=== PATIENT | female | born 1975 | race Caucasian/White ===

== ENCOUNTER → 2020-10-16 10:34 | Outpatient (BNVA) | payer OTHER, SELFPAY | PROVIDERS: Visit Provider Orthopaedic Surgery | DX: M75.102 Unspecified rotator cuff tear or rupture of left shoulder, not specified as traumatic (principal) | CPT/HCPCS: 99212 ==

== ENCOUNTER 2020-11-11 09:53 | Day surgery (SDC) | payer OTHER, SELFPAY ==
[2020-11-04 20:18] VITALS: BMI 41.5
--- NOTE | 2020-11-10 10:09 | HO.ANESPROP2 ---
Documented by User: Mee Garrett 11/10/20 10:19 HPI - Anesthesia Eval Consult details Narrative: 44yo F for Shoulder Rotator Cuff Repair,arthroscopy PMFSH Past Medical History Medical History Anxiety Back pain Complete tear of left rotator cuff GERD (gastroesophageal reflux disease) Rotator cuff tear Family History Family History Mother No problems noted. Surgical History Surgical History Hx of cholecystectomy S/P left rotator cuff repair S/P right rotator cuff repair Social History Social History Smoking Status: Current every day smoker Cigarettes Per Day: 3 Smoked in Last 30 Days: Yes Patient Interested in Nicotine Replacement: No Patient Given Instructions on How to Stop Smoking: Yes Date Education Initiated: 11/04/20 Second Hand Smoke Exposure: No Use of substances other than those prescribed or required for medical reasons: No Advance Directives: No Advance Directives Information Provided: No Advance Directives on File: No Recently lost weight without trying: No Current occupational status: unemployed Current occupation: Unemployed - Right Handed Meds Allergies Allergy/AdvReac Type Severity Reaction Status Date / Time Penicillins [PENICILLINS] Allergy Severe Anaphylaxis Verified 11/11/20 10:12 amoxicillin [AMOXICILLIN] Allergy Intermediate HIVES Verified 11/11/20 10:15 ciprofloxacin [From CIPRO] Allergy Unknown HIVES Verified 11/11/20 10:16 citalopram Allergy Unknown sweating, Verified 10/16/20 12:13 panic attack diclofenac [DICLOFENAC] Allergy Unknown HIVES, Verified 11/11/20 10:16 ITCHING, FLUSHED paroxetine [Paxil] Allergy Unknown stomach Verified 10/16/20 12:13 upset penicillin V Allergy Unknown unknown Verified 11/11/20 10:12 Sulfa (Sulfonamide Allergy Unknown HIVES Verified 11/11/20 10:16 Antibiotics) [SULFA(SULFONAMIDE ANTIBIOTICS)] trazodone Allergy Unknown increase Verified 10/16/20 12:13 appetite quetiapine [Seroquel] AdvReac Unknown Increased Verified 10/16/20 12:13 sweating and weight gain Flexeril Allergy Unknown unknown Uncoded 10/16/20 12:13 Home Medications Medication Instructions Recorded Confirmed Type tizanidine 4 mg capsule 4 mg PO Q6-8H PRN 09/18/20 11/04/20 History diazepam 10 mg tablet 10 mg PO BID PRN 10/16/20 11/04/20 History gabapentin 600 mg tablet 600 mg PO TID 10/16/20 11/04/20 History buspirone 1 tab PO BID 11/04/20 11/04/20 History Exam Exam Date and Time: November 10, 2020 1009 Height,Weight and Vital Signs: Height 5 ft 5 in Weight 113.398 kg Assessment and Plan Assessment Anesthesia Assessment: Chart Reviewed Documented by User: Jordon Richards MD 11/11/20 13:03 [facility] Past Medical History Medical History Anxiety Back pain Complete tear of left rotator cuff GERD (gastroesophageal reflux disease) Rotator cuff tear Family History Family History Mother No problems noted. Surgical History Surgical History Hx of cholecystectomy S/P left rotator cuff repair S/P right rotator cuff repair Social History Social History Smoking Status: Current every day smoker Cigarettes Per Day: 3 Smoked in Last 30 Days: Yes Patient Interested in Nicotine Replacement: No Patient Given Instructions on How to Stop Smoking: Yes Date Education Initiated: 11/04/20 Second Hand Smoke Exposure: No Use of substances other than those prescribed or required for medical reasons: No Advance Directives: No Advance Directives Information Provided: No Advance Directives on File: No Recently lost weight without trying: No Current occupational status: unemployed Current occupation: Unemployed - Right Handed Meds Allergies Allergy/AdvReac Type Severity Reaction Status Date / Time Penicillins [PENICILLINS] Allergy Severe Anaphylaxis Verified 11/11/20 10:12 amoxicillin [AMOXICILLIN] Allergy Intermediate HIVES Verified 11/11/20 10:15 ciprofloxacin [From CIPRO] Allergy Unknown HIVES Verified 11/11/20 10:16 citalopram Allergy Unknown sweating, Verified 10/16/20 12:13 panic attack diclofenac [DICLOFENAC] Allergy Unknown HIVES, Verified 11/11/20 10:16 ITCHING, FLUSHED paroxetine [Paxil] Allergy Unknown stomach Verified 10/16/20 12:13 upset penicillin V Allergy Unknown unknown Verified 11/11/20 10:12 Sulfa (Sulfonamide Allergy Unknown HIVES Verified 11/11/20 10:16 Antibiotics) [SULFA(SULFONAMIDE ANTIBIOTICS)] trazodone Allergy Unknown increase Verified 10/16/20 12:13 appetite quetiapine [Seroquel] AdvReac Unknown Increased Verified 10/16/20 12:13 sweating and weight gain Flexeril Allergy Unknown unknown Uncoded 10/16/20 12:13 Home Medications Medication Instructions Recorded Confirmed Type tizanidine 4 mg capsule 4 mg PO Q6-8H PRN 09/18/20 11/04/20 History diazepam 10 mg tablet 10 mg PO BID PRN 10/16/20 11/04/20 History gabapentin 600 mg tablet 600 mg PO TID 10/16/20 11/04/20 History buspirone 1 tab PO BID 11/04/20 11/04/20 History Exam Airway Mallampati Class: II TM Dist: >3cm Neck ROM: Full Loose/Missing/Broken Teeth: No Heart: rrr Lungs: nl Other: ao Assessment and Plan Assessment Anesthesia Assessment: Anesthesia Plan Discussed and Chart Reviewed Final Anesthetic Review NPO: Yes ASA Class: III Final Preanesthetic Review: No Changes in Pt Med Stat, Meds/Allgs Chart Reviewed, Consent Obtained/Reviewed and Anes Risks/Benef Reviewed Patient Risk: Intermediate Procedure Risk: Intermediate Anesthetic Plan Anesthetic Plan: GA and Regional Block Disposition: Standard PACU
[2020-11-11] VITALS (7 sets, daily range): BP systolic 111–139; BP diastolic 59–92; PULSE 84–92; RESP 18; TEMP 36.4–36.6; O2SAT 96–100
[2020-11-11] MEDS: Lactated Ringers 1,000 ML 100 ML IVCONT (10:43)
[2020-11-11 10:45] LABS: UPreg QC Valid YES; Urine Pregnancy NEGATIVE (NEGATIVE)
--- NOTE | 2020-11-11 11:45 | MHC.SHP ---
Pre-Procedural Eval Section A The patient is an INPATIENT: No Changes since office visit: Yes Patient answered all questions; No Cold of Flu in the past 2 weeks, No New Medical Problems and No Changes in Medication The History & Physical has been completed within 30 days and I have reviewed it.: Yes Section B Chief Complaint: rotator cuff tear Allergies: Allergies Allergy/AdvReac Type Severity Reaction Status Date / Time Penicillins [PENICILLINS] Allergy Severe Anaphylaxis Verified 11/11/20 10:12 amoxicillin [AMOXICILLIN] Allergy Intermediate HIVES Verified 11/11/20 10:15 ciprofloxacin [From CIPRO] Allergy Unknown HIVES Verified 11/11/20 10:16 citalopram Allergy Unknown sweating, Verified 10/16/20 12:13 panic attack diclofenac [DICLOFENAC] Allergy Unknown HIVES, Verified 11/11/20 10:16 ITCHING, FLUSHED paroxetine [Paxil] Allergy Unknown stomach Verified 10/16/20 12:13 upset penicillin V Allergy Unknown unknown Verified 11/11/20 10:12 Sulfa (Sulfonamide Allergy Unknown HIVES Verified 11/11/20 10:16 Antibiotics) [SULFA(SULFONAMIDE ANTIBIOTICS)] trazodone Allergy Unknown increase Verified 10/16/20 12:13 appetite quetiapine [Seroquel] AdvReac Unknown Increased Verified 10/16/20 12:13 sweating and weight gain Flexeril Allergy Unknown unknown Uncoded 10/16/20 12:13 Plan Patient has been examined and remains a candidate for the planned procedure
--- NOTE | 2020-11-11 13:34 | PM.OP ---
Brief Operative Note Date of Service: 11/11/20 Pre-op diagnosis: rotator cuff tear Post-op diagnosis: same Procedure: rotator cuff repair Implants: lopez and nephew 5.5 haelicoil lopez and nephew 5.0 helacoil knotless john 3.9 mm [place] Surgeon: Dariel Cain MD Anesthesia: GETA and regional Estimated blood loss (mL): 10 Tourniquet time (min): 0 IV fluids (mL): 800 Urine output (mL): 0 Pathology: none sent Condition: stable Disposition: PACU
[2020-11-11] MEDS: oxyCODONE HCl Immed Release 5 MG TABLET PO (14:14)
[2020-11-11] MEDS: Acetaminophen 325 MG TABLET 650 MG PO (14:16)
--- NOTE | 2020-11-11 16:04 | HO.POSTANES ---
Post Anesthesia Evaluation Post Anesthesia Evaluation Vital Signs: Vital Signs Temp Pulse Resp BP Pulse Ox 11/11/20 14:35 97.6 F 85 18 135/85 97 11/11/20 14:19 84 18 130/85 96 11/11/20 14:05 89 18 120/79 96 11/11/20 14:00 87 18 111/59 L 96 11/11/20 13:55 89 18 139/77 96 11/11/20 13:50 97.6 F 92 18 132/72 100 11/11/20 10:28 98 F 88 18 130/92 H 97 Anesthesia: Nerve Block and General Mental Status: Awake Pain Control: Satisfactory Nausea/Vomiting: None Hydration: Adequate Anesthesia-Related Issues: No Anes. Related Issues
--- NOTE | 2020-11-13 13:50 | OP_ITS ---
SURGEON: Dariel Cain MD INDICATIONS: A 44-year-old woman, who underwent a left rotator cuff repair approximately 2 years ago. She had a fall postoperatively, which may have irritated her shoulder, but she came in about 6 months ago with worsening shoulder pain. She was in excruciating pain and finally did do physical therapy, which was very helpful for her, but continued to have pain. An MRI was obtained, which was difficult to interpret given the prior rotator cuff repair, but she was taken to the operating room to undergo exploration of possible rotator cuff repair. PREOPERATIVE DIAGNOSIS: Left rotator cuff tear. POSTOPERATIVE DIAGNOSIS: Left rotator cuff tear. PROCEDURE PERFORMED: Left shoulder rotator cuff repair. ESTIMATED BLOOD LOSS: 10 mL. COMPLICATIONS: None known. ANESTHESIA: General and regional. ASSISTANTS: None. SPECIMENS: FLUIDS: 800. IMPLANTS: Burnham and Nephew 5.5 Healicoil and Burnham and Nephew 5.0 Knotless Healicoil and Silvana 3.9 mm [place] screw. PROCEDURE IN DETAIL: The patient was brought to the operating room, placed in the beach chair position. All bony prominences were well padded. She was prepped and draped in standard sterile fashion. Time-out was called to identify proper site, proper procedure, proper surgeon. IV antibiotics per weight was administered. I began by making a posterolateral stab incision, and placing my blunt trocar atraumatically into the glenohumeral joint. I then insufflated the joint and established an [id number] portal. She had no glenohumeral arthritis and labrum was intact with the previous biceps tenotomy. Subscap was intact. I could visualize suture and likely undersurface rotator cuff tearing. I then ascended into the subacromial space, where after minimal debridement, I could visualize a full thickness tear. There was no prominent hardware, but the suture was appeared to be pulled out of the tendon. Therefore, I removed the excess suture and then debrided the rotator cuff insertion site down to bleeding bone and then placed 1 Healicoil 5.5 anchor medially and brought the 2 FiberTape strands through the torn supraspinatus. I followed this with 1 additional FiberTape both limbs, which were brought to Healicoil 5.0 Knotless anchor. I then tamped this down far laterally and had good compression of the cuff on the footprint except for 1 small dog-ear. Therefore, I placed a looped suture through this and then brought that down again laterally to a Silvana [place] anchor. This resulted in excellent compression of the cuff over the footprint. I took the shoulder through range of motion and I was happy with the stability of the repair. I examined subacromial space and felt that this was not need a further treatment. All instrumentation was then removed and portals were closed with nylon. The patient was extubated and brought to the recovery room in stable condition. No known complications. MD JEFFERSON Munoz/MERVAT / [id number]
== END 2020-11-11 15:17 | disposition home or self-care (01) ==
PROVIDERS: Nurse Practitioner; PCP Internal Medicine; Visit Provider Orthopaedic Surgery
PROC: (CPT 29827; principal; 2020-11-11 11:00)
DX: M75.122 Complete rotator cuff tear or rupture of left shoulder, not specified as traumatic (principal); Z88.0 Allergy status to penicillin; Z88.1 Allergy status to other antibiotic agents; Z88.2 Allergy status to sulfonamides; Z88.8 Allergy status to other drugs, medicaments and biological substances; F17.210 Nicotine dependence, cigarettes, uncomplicated
CPT/HCPCS: 29827; 81025; C1713; J0171; J1100; J2250; J2370; J2405; J3010; J3370

== ENCOUNTER → 2020-11-24 11:27 | Outpatient (BNVA) | payer OTHER, SELFPAY | PROVIDERS: PCP Internal Medicine; Visit Provider Orthopaedic Surgery | DX: Z47.89 Encounter for other orthopedic aftercare (principal) | CPT/HCPCS: 99212 ==

== ENCOUNTER 2021-01-15 12:00 | Outpatient (RCR) | payer OTHER, SELFPAY ==
--- NOTE | 2020-12-16 11:34 | MHC.PT.EP ---
[facility] [place] Office [place] Office [place] Office [address] Raymundo Saunders [address] [phone] F: [phone] F: [phone] F: [phone] F: [phone] Physical Therapy Plan of Care Date of Evaluation: 12/16/20 Date of Surgery: 11/11/20 Diagnosis: S/P L shoulder rotator cuff repair Assessment: 44 year old female referred for s/p L rotator cuff repair . Pt is 5 weeks post op. This is patients second rotator cuff repair surgery on L side. Examination reveals 4/10 pain at rest and no pain with movement, decreased/ painful shoulder ROM, decreased muscle strength, and altered posture. She lives with her sister and mother. Her sister has been helping her with all IADLS but she is independent with all BADLs (modifies using R UE). She is unemployed but cares for her mother. She is a good candidate for PT based on age, goals, physical impairments and functional limitations. She would benefit from therapy to decrease pain, improve ROM, increase muscle strength, postural correction and functional training. Frequency and Duration: The patient will be seen 2/week for 8 weeks. Short Term Goals: 1. Pt will have 50% decrease in pain in 2 weeks. 2. Pt will be able to move shoulder through all planes of motion without pain in 3 weeks. Card Table Attendant Goals: 1. Pt will be able to perform all BADLs without compensation and pain in 5 weeks. 2. Pt will be independent with all IADLS- cooking, cleaning and grocery without pain in 6 weeks 3. Pt will return to PLOF- caring for her mother in 8 weeks Treatment Plan: Modalities to reduce pain, spasms and effusion. Manual therapy to restore motion and function. Therapeutic exercise to improve strength and flexibility. Neuromuscular re-education for posture and balance. Therapeutic activities to return to functional activities of daily living. Electronically signed by: Rayna Maldonado DPT Please sign and return to therapist. Thank you for your referral.
--- NOTE | 2021-02-11 14:27 | MHC.PT.DC ---
[facility] [place] Office [place] Office [place] Office [address] Raymundo Saunders [address] [phone] F: [phone] F: [phone] F: [phone] F: [phone] Physical Therapy Discharge Report Diagnosis: S/P L shoulder rotator cuff repair Date of Surgery: 11/11/20 Date of Evaluation: 12/16/20 Date of Discharge: 02/11/21 Treatments to Date: 2 Cancellations to Date: 7 No Shows to Date: 0 Discharge Status: Visit Non-compliance Discharge Summary: Pt has attended only one treatment visit over the last 2 months. She has been canceling her appointments due to issues with her mother's health whom she cares for. Pt discharged from therapy for non compliance Electronically signed by: Rayna Maldonado DPT Please sign and return to therapist. Thank you for your referral.
== END 2021-02-11 14:38 | disposition other institution (70) ==
LOC: HO.PT 12:00
PROVIDERS: PCP Internal Medicine; Visit Provider Orthopaedic Surgery
DX: Z98.890 Other specified postprocedural states (principal)
CPT/HCPCS: 97110; 97112; 97161

== ENCOUNTER → 2021-01-15 14:01 | Outpatient (BNVA) | payer OTHER, SELFPAY | PROVIDERS: PCP Internal Medicine; Visit Provider Orthopaedic Surgery | DX: Z13.89 Encounter for screening for other disorder (principal) | CPT/HCPCS: 99212 ==

== ENCOUNTER 2021-03-12 10:10 | Outpatient (REF) | payer OTHER, SELFPAY ==
--- NOTE | ~2021-03-12 | XR_ITS ---
EXAMINATION: XR ANKLE, LEFT CLINICAL INFORMATION: Pain in the ankle COMPARISON: None TECHNIQUE: AP, lateral, and mortise views of the left ankle. FINDINGS: There is no fracture or dislocation. The ankle mortise is congruent. Possible small ankle joint effusion. Circumferential soft tissue swelling. Small plantar heel spur. XR/XR ankle LT min 3V IMPRESSION: No acute osseous abnormality. Soft tissue swelling with small joint effusion.
--- NOTE | ~2021-03-12 | XR_ITS ---
EXAMINATION: XR SHOULDER, LEFT CLINICAL INFORMATION: Pain COMPARISON: 07/10/2020 TECHNIQUE: Three views of the left shoulder. FINDINGS: Radiopaque anchors are seen in the left humeral head. No fracture or dislocation. The glenohumeral joint is well aligned. Tiny marginal osteophyte at the inferior aspect of the humeral head. The joint space is maintained. The acromioclavicular joint is intact. The visualized lung is clear. The visualized ribs are intact. XR/XR shoulder LT min 2V IMPRESSION: No acute abnormality. Additional new hardware in the left humeral head when compared to prior study. Tiny osteophyte of the inferior humeral head.
== END 2021-03-12 10:11 | disposition home or self-care (01) ==
LOC: HO.HOSX 10:10
PROVIDERS: PCP Internal Medicine; Visit Provider Orthopaedic Surgery
DX: M25.512 Pain in left shoulder (principal); M75.122 Complete rotator cuff tear or rupture of left shoulder, not specified as traumatic; S93.402A Sprain of unspecified ligament of left ankle, initial encounter; W01.0XXA Fall on same level from slipping, tripping and stumbling without subsequent striking against object, initial encounter; Y93.9 Activity, unspecified; Y92.9 Unspecified place or not applicable; Y99.8 Other external cause status; M54.9 Dorsalgia, unspecified; F17.210 Nicotine dependence, cigarettes, uncomplicated; Z88.1 Allergy status to other antibiotic agents; Z88.0 Allergy status to penicillin; Z88.2 Allergy status to sulfonamides; Z88.8 Allergy status to other drugs, medicaments and biological substances; Z98.890 Other specified postprocedural states
CPT/HCPCS: 73030; 73610; 99212

== ENCOUNTER 2021-09-22 11:37 | Outpatient (REF) | payer OTHER, SELFPAY ==
--- NOTE | ~2021-09-22 | MM_ITS ---
EXAMINATION: MM SCREENING DIGITAL BREAST TOMOSYNTHESIS, BILATERAL CLINICAL INFORMATION: Screening. Asymptomatic. The lifetime risk of breast cancer based on the Tyrer-Cuzick Model is 17.1%. COMPARISON: Mammography: March 27, 2018 TECHNIQUE: Digital breast tomosynthesis is performed in both the craniocaudal and mediolateral oblique views along with computer-aided detection (CAD). Synthesized 2D images are generated from the tomosynthesis. FINDINGS: The breasts are almost entirely fatty (ACR BI-RADS breast composition Category a). There are no new significant masses, abnormal calcifications, or other abnormalities. There are multiple bilateral circumscribed densities which are stable. MM/MM tomosynthesis screening BI IMPRESSION: There are no significant changes from prior study. ASSESSMENT: BI-RADS 1: Negative RECOMMENDATION: Routine annual mammography screening. This patient's information was entered into a reminder system with a target due date for their next mammogram.
[2021-09-22 12:43] LABS: Hematocrit 45.5 % (37-47); Hemoglobin 14.7 g/dl (12.0-16.0); Mean Corpuscular HGB Conc 32.3 g/dl (31.0-35.0); Mean Corpuscular Hemoglobin 29.1 pg (27.0-33.0); Mean Corpuscular Volume 89.9 fL (80-98); Mean Platelet Volume 11.6 fL (9.4-12.3); Platelet Count 241 X10*3/uL (160-400); Red Blood Count 5.06 X10*6/uL (4.20-5.50); Red Cell Distribution Width 12.6 % (11.0-16.0); White Blood Count 10.1 X10*3/uL (4.8-10.8)
[2021-09-22 13:25] LABS: Alanine Aminotransferase 15 U/L (0-31); Alkaline Phosphatase 56 U/L (39-117); Anion Gap 13 (12-20); Aspartate Amino Transferase 21 U/L (5-31); Bilirubin Total 0.3 mg/dL (0.0-1.0); Blood Urea Nitrogen 13 mg/dL (9-16); Calcium 9.5 mg/dL (8.4-10.2); Carbon Dioxide 25 mmol/L (22-29); Chloride 106 mmol/L (96-108); Cholesterol 232 mg/dL; Estimated Glomerular Filt Rate > 60; Glucose Fasting 130 mg/dL (60-99); HDL Cholesterol 46 mg/dL; LDL Cholesterol Calculated 161 mg/dl; Potassium 4.8 mmol/L (3.3-5.1); Sodium 139 mmol/L (135-145); Total Protein 7.1 g/dL (6.5-8.0); Triglycerides 128 mg/dL
[2021-09-22 13:45] LABS: TSH reflex Free T4 1.82 uIU/mL (0.32-4.0)
== END 2021-09-22 11:38 | disposition home or self-care (01) ==
LOC: HO.MAMMO 11:37
PROVIDERS: PCP Internal Medicine; Visit Provider Internal Medicine
DX: Z00.00 Encounter for general adult medical examination without abnormal findings (principal); Z12.31 Encounter for screening mammogram for malignant neoplasm of breast; I10 Essential (primary) hypertension
CPT/HCPCS: 36415; 77063; 77067; 80053; 80061; 84443; 85027

== ENCOUNTER 2021-11-06 00:44 | Emergency (ER) | payer OTHER, SELFPAY ==
--- NOTE | ~2021-11-06 | XR_ITS ---
EXAMINATION: XR HAND, RIGHT CLINICAL INFORMATION: Closed injury COMPARISON: 02/13/2012 TECHNIQUE: 3 views of the right hand. FINDINGS: Osseous alignment is anatomic. No acute fracture is seen. There is suggestion of some soft tissue swelling overlying the distal metacarpals. XR/XR hand wrist RT IMPRESSION: No acute osseous findings.
[2021-11-06 00:45] VITALS: BP 203/114; PULSE 128; RESP 20; TEMP 36.6; BMI 41.2
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
[2021-11-06] MEDS: oxyCODONE HCl Immed Release 5 MG TABLET 10 MG PO (01:14)
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
[2021-11-06 01:48] VITALS: BP 136/91; PULSE 107
[2021-11-06] MEDS: Propranolol HCL 40 MG TABLET PO (01:48)
[2021-11-06 01:53] VITALS: BP 136/91
== END 2021-11-06 01:54 | disposition home or self-care (01) ==
PROVIDERS: Emergency Provider Internal Medicine; PCP Internal Medicine
DX: S60.221A Contusion of right hand, initial encounter (principal); M25.531 Pain in right wrist; I10 Essential (primary) hypertension; F17.210 Nicotine dependence, cigarettes, uncomplicated; X79.XXXA Intentional self-harm by blunt object, initial encounter; Y93.9 Activity, unspecified; Y92.009 Unspecified place in unspecified non-institutional (private) residence as the place of occurrence of the external cause; Y99.9 Unspecified external cause status; Z79.899 Other long term (current) drug therapy; Z71.6 Tobacco abuse counseling
CPT/HCPCS: 29125; 73110; 73130; 99284; 99285

== ENCOUNTER 2021-12-07 10:15 | Outpatient (REF) | payer OTHER, SELFPAY ==
--- NOTE | ~2021-12-07 | XR_ITS ---
EXAMINATION: XR CERVICAL SPINE CLINICAL INFORMATION: Cervicalgia. COMPARISON: CT cervical spine dated from 03/10/2018. TECHNIQUE: 4 views of the cervical spine were obtained. FINDINGS: Straightening of the normal cervical lordosis with otherwise preserved anatomic alignment. No acute fracture. There is moderate disc space narrowing and endplate spurring at C5-C6, similar when compared to the CT from 2018. The atlantoaxial articulation is normally maintained. The paraspinal soft tissues are normal. The visualized lung bases are clear. XR/XR cervical spine 4V IMPRESSION: No acute cervical fractures or malalignment. Moderate spondylosis at C5-C6.
== END 2021-12-07 10:16 | disposition home or self-care (01) ==
LOC: HO.XRAY 10:15
PROVIDERS: PCP Internal Medicine; Visit Provider Family Medicine
DX: M54.2 Cervicalgia (principal)
CPT/HCPCS: 72050

== ENCOUNTER 2021-12-15 09:18 | Outpatient (REF) | payer OTHER, SELFPAY | END 2021-12-15 09:19 | disposition home or self-care (01) | LOC: HO.HOSX 09:18 | PROVIDERS: Visit Provider Orthopaedic Surgery | DX: Z13.89 Encounter for screening for other disorder (principal) ==

== ENCOUNTER 2022-01-06 08:39 | Outpatient (REF) | payer OTHER, SELFPAY | END 2022-01-06 08:40 | disposition home or self-care (01) | LOC: HO.HOSX 08:39 | PROVIDERS: Visit Provider Orthopaedic Surgery | DX: Z13.89 Encounter for screening for other disorder (principal) ==

== ENCOUNTER 2023-03-14 10:20 | Outpatient (REF) | payer OTHER, SELFPAY ==
[2023-03-14 11:27] LABS: MANUAL DIFF FLAG NO
[2023-03-14 11:30] LABS: Appearance Urine Cloudy; Color Urine Dark Yellow; Glucose Urine UA Negative (Negative); Leukocyte Esterase Urine Small (1+) (Negative); Nitrite Urine Negative (Negative); PH 5.5 (5.0-9.0); Specific Gravity - Urine >= 1.030 (1.005-1.025); UMIC TRIGGER UA YES; Urine Blood Small (1+) (Negative); Urine Ketones Negative (Negative); Urine Protein Trace mg/dL (Neg-Trace)
[2023-03-14 11:44] LABS: Basophils Percent Auto 0.3 % (0-2); Eosinophils Absolute Auto 0.1 X10*3/uL (0.0-0.4); Eosinophils Percent Auto 1.2 % (0-4); Hematocrit 45.6 % (37.0-47.0); Hemoglobin 14.8 g/dl (12.0-16.0); Imm Gran Abs Auto 0.03 X10*3/uL (0.00-0.03); Imm Gran Pct Auto 0.3 % (0.0-0.4); Lymphocytes Absolute Auto 2.4 X10*3/uL (1.2-4.9); Lymphocytes Percent Auto 23.3 % (20-40); Mean Corpuscular HGB Conc 32.5 g/dl (31.0-35.0); Mean Corpuscular Hemoglobin 28.8 pg (27.0-33.0); Mean Corpuscular Volume 88.9 fL (80.0-98.0); Monocytes Absolute Auto 0.7 X10*3/uL (0.1-1.2); Monocytes Percent Auto 7.1 % (2-11); Neutrophils Absolute Auto 6.8 x10*3/uL (2.0-8.3); Neutrophils Percent Auto 67.8 % (45-73); Platelet Count 272 X10*3/uL (160-400); Red Blood Count 5.13 X10*6/uL (4.20-5.50); Red Cell Distribution Width 12.8 % (11.0-16.0); White Blood Count 10.1 X10*3/uL (4.8-10.8)
[2023-03-14 11:45] LABS: Bacteria Urine Trace (None Seen); Calcium Oxalate Crystals Urine Present; WBC Urine 0-5 /HPF (0-5)
[2023-03-14 12:11] LABS: Microalbum/Creatinine Ratio Ur 5.7 ug/mg cr
[2023-03-14 12:14] LABS: Alanine Aminotransferase 18 U/L (0-31); Alkaline Phosphatase 64 U/L (39-117); Anion Gap 14 (12-20); Aspartate Amino Transferase 31 U/L (5-31); Bilirubin Total 0.6 mg/dL (0.0-1.0); Blood Urea Nitrogen 12 mg/dL (9-16); Calcium 9.4 mg/dL (8.4-10.2); Carbon Dioxide 25 mmol/L (22-29); Chloride 105 mmol/L (96-108); Cholesterol 215 mg/dL; Estimated Glomerular Filt Rate > 60; Glucose Fasting 120 mg/dL (60-99); HDL Cholesterol 46 mg/dL; LDL Cholesterol Calculated 136 mg/dl; Potassium 4.4 mmol/L (3.3-5.1); Sodium 140 mmol/L (135-145); TSH reflex Free T4 3.16 uIU/mL (0.32-4.0); Total Protein 7.3 g/dL (6.5-8.0); Triglycerides 168 mg/dL; Vitamin D 25-OH Total 32.8 ng/mL (>30)
[2023-03-14 12:17] LABS: HIV AB/AG Nonreactive (Nonreactive); HIV Num 1 0.08 S/CO (0.00-0.99); Syphilis Screen Nonreactive (Nonreactive)
[2023-03-14 12:21] LABS: Estimated Average Glucose 128 mg/dL; Hemoglobin A1c % 6.1 %
[2023-03-17 00:29] LABS: HPV mRNA E6/E7 Not Detected (Not Detected)
== END 2023-03-14 10:21 | disposition home or self-care (01) ==
LOC: HO.HMGCLDS 10:20
PROVIDERS: PCP Internal Medicine; Visit Provider Internal Medicine
DX: Z00.00 Encounter for general adult medical examination without abnormal findings (principal); I10 Essential (primary) hypertension; Z12.4 Encounter for screening for malignant neoplasm of cervix
CPT/HCPCS: 36415; 80053; 80061; 81001; 82043; 82306; 83036; 84443; 85025; 86780; 87389; 87624; 88142

== ENCOUNTER 2023-05-05 12:40 | Outpatient (REF) | payer OTHER, SELFPAY ==
--- NOTE | ~2023-05-05 | MM_ITS ---
EXAMINATION: MM SCREENING DIGITAL BREAST TOMOSYNTHESIS, BILATERAL CLINICAL INFORMATION: Screening. Asymptomatic. The lifetime risk of breast cancer based on the Tyrer-Cuzick Model is 17%. COMPARISON: Mammography: 09/22/2021, 03/27/2018 (baseline). TECHNIQUE: Digital breast tomosynthesis is performed in both the craniocaudal and mediolateral oblique views along with computer-aided detection (CAD). Synthesized 2D images are generated from the tomosynthesis. Additional right CC, right MLO, left CC x2, and left MLO x2 views are provided. FINDINGS: There are scattered areas of fibroglandular density (ACR BI-RADS breast composition Category b). Breast tissue composition borders on predominantly fatty. Background stromal and fibroglandular densities are stable. No developing density or architectural abnormality. There are no significant masses, abnormal calcifications, or other abnormalities. The axilla are unremarkable. MM/MM tomosynthesis screening BI IMPRESSION: No mammographic evidence of malignancy. ASSESSMENT: BI-RADS 1: Negative RECOMMENDATION: Routine annual mammography screening. This patient's information was entered into a reminder system with a target due date for their next mammogram.
== END 2023-05-05 12:41 | disposition home or self-care (01) ==
LOC: HO.MAMMO 12:40
PROVIDERS: PCP Internal Medicine; Visit Provider Internal Medicine
DX: Z12.31 Encounter for screening mammogram for malignant neoplasm of breast (principal)
CPT/HCPCS: 77063; 77067; 99202

== ENCOUNTER 2023-05-18 20:37 | Emergency (ER) | payer OTHER, SELFPAY ==
--- NOTE | 2023-05-18 | ECG_ITS ---
Test Reason : HIGH HEART RATE Blood Pressure : / mmHG Vent. Rate : 120 BPM Atrial Rate : 120 BPM P-R Int : 114 ms QRS Dur : 074 ms QT Int : 330 ms P-R-T Axes : 036 -11 -05 degrees QTc Int : 466 ms Sinus tachycardia Minimal voltage criteria for LVH, may be normal variant ( R in aVL ) Cannot rule out Anterior infarct , age undetermined Abnormal ECG When compared with ECG of 30-JUL-2019 07:41, No significant change was found Referred By: Generic ED Physician Electronically Signed By:CEDRIC JARAMILLO
--- NOTE | ~2023-05-18 | XR_ITS ---
EXAMINATION: XR CHEST CLINICAL INFORMATION: Cough. COMPARISON: Chest radiograph 10/25/2017. TECHNIQUE: Frontal view of the chest was obtained. FINDINGS: Subtle focal airspace opacities in the lateral left lower lobe with equivocal trace amount of pleural fluid. Clear right lung. No pneumothorax. Normal appearance of the cardiomediastinal silhouette. Bilateral humeral head orthopedic anchors. No acute osseous abnormalities. XR/XR chest 1V IMPRESSION: Focal airspace opacities in the left lower lobe with trace pleural fluid could indicate aspiration or pneumonia in the appropriate clinical context. Recommend a follow-up examination after treatment to ensure resolution.
[2023-05-18 20:42] VITALS: BP 140/80; PULSE 131; O2SAT 95
[2023-05-18 20:44] VITALS: BP 145/87; PULSE 129; RESP 17; TEMP 37.2; O2SAT 96
[2023-05-18 20:54] VITALS: PULSE 120; RESP 30; TEMP 37.1; O2SAT 97; BMI 41.5
[2023-05-18 21:09] VITALS: BP 121/76; PULSE 125; RESP 22; TEMP 36.8; O2SAT 97
--- NOTE | 2023-05-18 21:36 | ED_ITS ---
HPI - General Adult General Chief complaint: Headache Stated complaint: felipe, n/v and hot flashes, dizziness Time Seen by Provider: 05/18/23 21:35 Source: patient Mode of arrival: ambulatory Limitations: no limitations History of Present Illness HPI narrative: Patient 47 years old with history of recurrent tonsillitis for last 2 weeks getting worse for last 5 days with fever poor oral intake seen her PCP was started on doxycycline 5 days ago which she finished yesterday is still having pain in the throat and having dry cough no urinary symptoms Related Data Home Medications Medication Instructions Recorded Confirmed tizanidine 4 mg capsule 4 mg PO Q6-8H PRN Spasms 09/18/20 03/14/23 gabapentin 600 mg tablet 600 mg PO TID 10/16/20 03/14/23 buspirone 30 mg tablet 1 tab PO BID 11/04/20 03/14/23 Previous Rx's Medication Instructions Recorded fluconazole 150 mg tablet 150 mg PO Q3D 2 doses #2 tabs 05/05/22 norethindrone (contraceptive) 0.35 0.35 mg PO DAILY #84 tabs 06/17/22 mg tablet omeprazole 20 mg capsule,delayed 20 mg PO DAILY #90 caps 06/17/22 release ketoconazole 2 % topical cream 1 appl topical DAILY #60 grams 01/25/23 propranolol 40 mg tablet 40 mg PO BID #180 tabs 04/20/23 bisacodyl 5 mg tablet,delayed 20 mg PO ONCE colonoscopy prep 1 05/05/23 release (Dulcolax (bisacodyl)) day #4 tabs pantoprazole 40 mg tablet,delayed 40 mg PO DAILY 30 days #30 tabs 05/05/23 release polyethylene glycol 3350 17 238 g PO ONCE 1 day #238 grams 05/05/23 gram/dose oral powder (Miralax) sucralfate 1 gram tablet 1 g PO QIDACHS 21 days #90 tabs 05/05/23 benzonatate 200 mg capsule 200 mg PO BID PRN cough #20 caps 05/12/23 doxycycline hyclate 100 mg tablet 100 mg PO BID 5 days #10 tabs 05/12/23 cefuroxime axetil 500 mg tablet 500 mg PO BID #20 tabs 05/18/23 dexamethasone 6 mg tablet 6 mg PO DAILY #6 tabs 05/18/23 codeine 10 mg-guaifenesin 100 mg/5 10 ml PO Q6H PRN cough #237 mL 05/19/23 mL oral liquid Allergies Allergy/AdvReac Type Severity Reaction Status Date / Time Penicillins [PENICILLINS] Allergy Severe Anaphylaxis Verified 05/05/23 13:44 amoxicillin [AMOXICILLIN] Allergy Intermediate HIVES Verified 05/05/23 13:44 ciprofloxacin [From CIPRO] Allergy Unknown HIVES Verified 05/05/23 13:44 citalopram Allergy Unknown sweating, Verified 05/05/23 13:44 panic attack cyclobenzaprine Allergy Unknown unknown Verified 05/05/23 13:44 [From Flexeril] diclofenac [DICLOFENAC] Allergy Unknown HIVES, Verified 05/05/23 13:44 ITCHING, FLUSHED paroxetine [Paxil] Allergy Unknown stomach Verified 05/05/23 13:44 upset penicillin V Allergy Unknown unknown Verified 05/05/23 13:44 Sulfa (Sulfonamide Allergy Unknown HIVES Verified 05/05/23 13:44 Antibiotics) [SULFA(SULFONAMIDE ANTIBIOTICS)] trazodone Allergy Unknown increase Verified 05/05/23 13:44 appetite quetiapine [Seroquel] AdvReac Unknown Increased Verified 05/05/23 13:44 sweating and weight gain Review of Systems Review of Systems: Yes all other systems are reviewed and are negative PMFSH Past Medical History Medical History (Updated 05/19/23 @ 00:03 by Master Holt MD) Annual physical exam Anxiety Back pain Complete tear of left rotator cuff GERD (gastroesophageal reflux disease) Hand injury Rotator cuff tear Surgical History Hx of cholecystectomy S/P left rotator cuff repair S/P left rotator cuff repair S/P right rotator cuff repair Family History Family History Mother No problems noted. Father Lung cancer Sister Mental health disorder Social History Social History Housing: House Alcohol intake: former Patient Tobacco Use Status: Former Tobacco user Cigarettes Per Day: 3 Smoked in Last 30 Days: Yes e-Cigarette/Vaping Use: Never Used Second Hand Smoke Exposure: No Use of substances other than those prescribed or required for medical reasons: No Advance Directives: No Advance Directives Information Provided: No Current occupational status: unemployed Current occupation: Unemployed - Right Handed Cognitive needs: No Hearing needs: No Vision needs: No Physical Exam ED Vital Signs: Vital Signs - 24 hr 05/18/23 20:44 05/18/23 20:54 05/18/23 21:09 Temperature 99.0 F 98.7 F 98.3 F Pulse Rate 129 H 120 H 125 H Respiratory Rate 17 30 H 22 H Blood Pressure 145/87 H 121/76 Pulse Oximetry 96 97 97 Oxygen Delivery Method Room Air Room Air Room Air 05/18/23 22:50 Temperature 98.8 F Pulse Rate 110 H Respiratory Rate 16 Blood Pressure 117/74 Pulse Oximetry 94 Oxygen Delivery Method Room Air BMI result Body Mass Index 41.5 Appearance: Alert. Oriented X3. No acute distress. ENT: erythema oropharynx with exudate on the tonsils. Oral Mucosa moist Neck: Normal inspection. Neck supple. CVS: Normal heart rate and rhythm. Pulses normal. Respiratory: No respiratory distress. Equal air entry bilateral, no wheezing/rales/rhonchi Abdomen: Soft and nontender. Bowel sounds are present, Skin: Skin warm and dry. Normal skin color. Normal skin turgor. Extremities: No lower extremity edema. No calf tenderness Neuro: Oriented X 3. Medications Administered Discontinued Medications Generic Name Dose Route Start Last Admin Trade Name Freq PRN Reason Stop Dose Admin Sodium Chloride 1,000 mls @ 999 mls/hr 05/18/23 21:45 05/18/23 23:17 Ns IV 05/18/23 22:45 Infused .Q1H1M ONE Infusion Ceftriaxone Sodium 1 gm/ 50 mls @ 100 mls/hr 05/18/23 21:45 05/18/23 23:10 Sodium Chloride IV 05/18/23 22:14 Infused ONCE ONE Infusion Sodium Chloride 1,000 mls @ 999 mls/hr 05/18/23 22:23 05/18/23 23:58 Ns IV 05/18/23 23:23 Infused .Q1H1M ONE Infusion Ketorolac Tromethamine 30 mg 05/18/23 21:45 05/18/23 22:25 Ketorolac Tromethamine 30 Mg/Ml Vial IVPUSH 05/18/23 21:46 30 mg ONCE ONE Administration Morphine Sulfate 4 mg 05/18/23 22:59 05/18/23 23:06 Morphine Sulfate 4 Mg/Ml Cartridge IVPUSH 05/18/23 23:00 4 mg ONCE ONE Administration Protocol Medical Decision Making Medical Decision Making [facility] Narrative: Patient with COVID19 , pneumonia and UTI. Patient is saturating 96% room air will give a dose of Decadron IV Rocephin discharged on Ceftin and Decadron advised to follow with PCP patient had elevated lactic acidosis not from bacterial sepsis, is from COVID Lab Data [facility] Lab Attestation statement: I reviewed the patient's lab results. 05/18/23 21:30 05/18/23 21:30 Labs: Lab Results 05/18/23 05/18/23 05/18/23 Range/Units 21:29 21:30 21:30 WBC 18.1 H (4.8-10.8) X10*3/uL RBC 4.65 (4.20-5.50) X10*6/uL Hgb 13.2 (12.0-16.0) g/dl Hct 41.5 (37.0-47.0) % MCV 89.2 (80.0-98.0) fL MCH 28.4 (27.0-33.0) pg MCHC 31.8 (31.0-35.0) g/dl RDW 13.2 (11.0-16.0) % Plt Count 324 (160-400) X10*3/uL MPV 10.8 (9.4-12.3) fL Absolute Nucleated RBC 0.000 (0.0-0.012) X10*3/uL Nucleated RBC % (auto) 0.0 (0.0-0.2) /100WBC Sodium (135-145) mmol/L Potassium (3.3-5.1) mmol/L Chloride (96-108) mmol/L Carbon Dioxide (22-29) mmol/L Anion Gap (12-20) BUN (9-16) mg/dL Creatinine (0.5-1.4) mg/dL Estim Creat Clear Calc Estimated GFR Random Glucose (60-115) mg/dL Lactic Acid (0.5-2.0) mmol/L Calcium (8.4-10.2) mg/dL Total Bilirubin (0.0-1.0) mg/dL AST (5-31) U/L ALT (0-31) U/L Alkaline Phosphatase (39-117) U/L Total Protein (6.5-8.0) g/dL Albumin (3.5-5.0) g/dL Urine Color Urine Appearance Urine pH (5.0-9.0) Ur Specific [place] (1.005-1.025) Urine Protein (Neg-Trace) mg/dL Urine Glucose (UA) (Negative) mg/dL Urine Ketones (Negative) mg/dL Urine Blood (Negative) Urine Nitrite (Negative) Ur Leukocyte Esterase (Negative) Urine RBC (0-2) /HPF Urine WBC (0-5) /HPF Ur Squamous Epith Cells (0-2) /HPF Urine Bacteria (None Seen) Hyaline Casts (0-2) /LPF Influenza Type A (PCR) NEGATIVE (Negative) Influenza Type B (PCR) NEGATIVE (Negative) RSV RNA Qual (PCR) NEGATIVE (Negative) SARS-CoV-2 RNA (RT-PCR) POSITIVE A (Negative) S. pyogenes GrpA GREGORY Negative (Negative) 05/18/23 05/18/23 05/18/23 Range/Units 21:53 21:57 23:09 WBC (4.8-10.8) X10*3/uL RBC (4.20-5.50) X10*6/uL Hgb (12.0-16.0) g/dl Hct (37.0-47.0) % MCV (80.0-98.0) fL MCH (27.0-33.0) pg MCHC (31.0-35.0) g/dl RDW (11.0-16.0) % Plt Count (160-400) X10*3/uL MPV (9.4-12.3) fL Absolute Nucleated RBC (0.0-0.012) X10*3/uL Nucleated RBC % (auto) (0.0-0.2) /100WBC Sodium 138 (135-145) mmol/L Potassium 4.1 (3.3-5.1) mmol/L Chloride 105 (96-108) mmol/L Carbon Dioxide 21 L (22-29) mmol/L Anion Gap 16 (12-20) BUN 15 (9-16) mg/dL Creatinine 0.75 (0.5-1.4) mg/dL Estim Creat Clear Calc 118.7 Estimated GFR > 60 Random Glucose 156 H (60-115) mg/dL Lactic Acid 4.1 H* (0.5-2.0) mmol/L Calcium 10.0 D (8.4-10.2) mg/dL Total Bilirubin 0.2 (0.0-1.0) mg/dL AST 16 (5-31) U/L ALT 10 (0-31) U/L Alkaline Phosphatase 55 (39-117) U/L Total Protein 7.8 (6.5-8.0) g/dL Albumin 3.7 (3.5-5.0) g/dL Urine Color Yellow Urine Appearance Turbid Urine pH 5.0 (5.0-9.0) Ur Specific [place] >= 1.030 H (1.005-1.025) Urine Protein 30 (1+) H (Neg-Trace) mg/dL Urine Glucose (UA) 250 H (Negative) mg/dL Urine Ketones 15 (Negative) mg/dL Urine Blood Negative (Negative) Urine Nitrite Negative (Negative) Ur Leukocyte Esterase Moderate (2+) H (Negative) Urine RBC 3-5 H (0-2) /HPF Urine WBC 21-50 H (0-5) /HPF Ur Squamous Epith Cells >20 (0-2) /HPF Urine Bacteria 4+ (None Seen) Hyaline Casts 0-2 (0-2) /LPF Influenza Type A (PCR) (Negative) Influenza Type B (PCR) (Negative) RSV RNA Qual (PCR) (Negative) SARS-CoV-2 RNA (RT-PCR) (Negative) S. pyogenes GrpA GREGORY (Negative) Independent Interpretation I performed an independent interpretation of an: EKG Interpretation: Sinus tachycardia heart rate 120 beats per minute no acute ST-T changes no acute ischemia Discharge Plan Discharge Clinical Impression: COVID-19, Pneumonia, UTI (urinary tract infection) Patient Disposition: Home, Self-Care Instructions: Urinary Tract Infection in Women (ED), Community Acquired Pneumonia (ED), COVID-19 (Coronavirus Disease 2019) (ED) Additional Instructions: Drink plenty of fluids Cough syrup and Decadron as prescribed Antibiotic as prescribed Follow with PCP if not better Prescriptions: New dexamethasone 6 mg tablet 6 mg PO DAILY Qty: 6 0RF cefuroxime axetil 500 mg tablet 500 mg PO BID Qty: 20 0RF codeine-guaifenesin 10-100 mg/5 mL liquid 10 ml PO Q6H PRN (Reason: cough) Qty: 237 0RF No Action fluconazole 150 mg tablet 150 mg PO Q3D Qty: 2 0RF omeprazole 20 mg capsule,delayed release(DR/EC) 20 mg PO DAILY Qty: 90 3RF norethindrone (contraceptive) 0.35 mg tablet 0.35 mg PO DAILY Qty: 84 3RF ketoconazole 2 % cream 1 appl topical DAILY Qty: 60 0RF propranolol 40 mg tablet 40 mg PO BID Qty: 180 1RF doxycycline hyclate 100 mg tablet 100 mg PO BID 5 Days Qty: 10 0RF benzonatate 200 mg capsule 200 mg PO BID PRN (Reason: cough) Qty: 20 0RF buspirone 30 mg tablet 1 tab PO BID gabapentin 600 mg tablet 600 mg PO TID tizanidine 4 mg capsule 4 mg PO Q6-8H PRN (Reason: Spasms) Rx Instructions: do not exceed 3 doses per 24 hrs bisacodyl [Dulcolax (bisacodyl)] 5 mg tablet,delayed release (DR/EC) 20 mg PO ONCE 1 Days Qty: 4 0RF Rx Instructions: Take 4 tablets by mouth at 12:00pm the day before your procedure. polyethylene glycol 3350 [Miralax] 17 gram/dose powder 238 g PO ONCE 1 Days Qty: 238 0RF Rx Instructions: Take as directed by mouth the day before your procedure. pantoprazole 40 mg tablet,delayed release (DR/EC) 40 mg PO DAILY 30 Days Qty: 30 11RF sucralfate 1 gram tablet 1 g PO QIDACHS 21 Days Qty: 90 0RF
[2023-05-18 21:38] LABS: Hematocrit 41.5 % (37.0-47.0); Hemoglobin 13.2 g/dl (12.0-16.0); Mean Corpuscular HGB Conc 31.8 g/dl (31.0-35.0); Mean Corpuscular Hemoglobin 28.4 pg (27.0-33.0); Mean Corpuscular Volume 89.2 fL (80.0-98.0); Mean Platelet Volume 10.8 fL (9.4-12.3); Platelet Count 324 X10*3/uL (160-400); Red Blood Count 4.65 X10*6/uL (4.20-5.50); Red Cell Distribution Width 13.2 % (11.0-16.0); White Blood Count 18.1 X10*3/uL (4.8-10.8)
[2023-05-18 21:50] LABS: IDNOW Serial# 08D9AD1C; Strep A Nucleic Acid Negative (Negative)
[2023-05-18] MEDS: cefTRIAXone sodium 1 GM in 0.9 % Sodium Chloride 50 ML IV (22:10)
[2023-05-18] MEDS: 0.9 % Sodium Chloride 1,000 ML 999 ML IV ×2 (22:11→22:54)
[2023-05-18 22:18] LABS: Influenza A PCR NEGATIVE (Negative); Influenza B PCR NEGATIVE (Negative); Resp Syncy Virus RNA Qual PCR NEGATIVE (Negative); SARS COV2 PCR INHOUSE POSITIVE (Negative)
[2023-05-18 22:19] LABS: Lactic Acid 4.1 mmol/L (0.5-2.0)
[2023-05-18 22:20] LABS: Alanine Aminotransferase 10 U/L (0-31); Albumin Level 3.7 g/dL (3.5-5.0); Alkaline Phosphatase 55 U/L (39-117); Anion Gap 16 (12-20); Aspartate Amino Transferase 16 U/L (5-31); Bilirubin Total 0.2 mg/dL (0.0-1.0); Blood Urea Nitrogen 15 mg/dL (9-16); Carbon Dioxide 21 mmol/L (22-29); Chloride 105 mmol/L (96-108); Creatinine Clr Calc Pharmacy 118.7; Estimated Glomerular Filt Rate > 60; Glucose Random 156 mg/dL (60-115); Potassium 4.1 mmol/L (3.3-5.1); Sodium 138 mmol/L (135-145); Total Protein 7.8 g/dL (6.5-8.0)
[2023-05-18] MEDS: Ketorolac Tromethamine 30 MG/ML VIAL IVPUSH (22:25)
[2023-05-18 22:50] VITALS: BP 117/74; PULSE 110; RESP 16; TEMP 37.1; O2SAT 94
[2023-05-18] MEDS: Morphine Sulfate 4 MG/ML CARTRIDGE IVPUSH (23:06)
[2023-05-18 23:32] LABS: Appearance Urine Turbid; Color Urine Yellow; Glucose Urine UA 250 mg/dL (Negative); Leukocyte Esterase Urine Moderate (2+) (Negative); Nitrite Urine Negative (Negative); Specific Gravity - Urine >= 1.030 (1.005-1.025); UMIC TRIGGER UACC YES; Urine Blood Negative (Negative); Urine Ketones 15 mg/dL (Negative); Urine Protein 30 (1+) mg/dL (Neg-Trace)
[2023-05-18 23:47] LABS: Bacteria Urine 4+ (None Seen); Hyaline Casts Urine 0-2 /LPF (0-2); Squamous Epithelial Cell Urine >20 /HPF (0-2); UACC Culture Trigger YES; WBC Urine 21-50 /HPF (0-5)
[2023-05-19 00:02] LABS: Reflex Lactate? Lactic Acid Added
[2023-05-19] MEDS: dexAMETHasone 6 MG TABLET PO (00:09)
== END 2023-05-19 00:07 | disposition home or self-care (01) ==
PROVIDERS: Emergency Provider Internal Medicine; PCP Internal Medicine
DX: U07.1 COVID-19 (principal); J12.82 Pneumonia due to coronavirus disease 2019; N39.0 Urinary tract infection, site not specified; F17.210 Nicotine dependence, cigarettes, uncomplicated; I10 Essential (primary) hypertension; E78.5 Hyperlipidemia, unspecified; Z79.899 Other long term (current) drug therapy
CPT/HCPCS: 0241U; 36415; 71045; 80053; 81001; 83605; 85027; 87040; 87086; 87651; 93005; 96361; 96365; 96375; 99285; J0696; J1885; J2270; J8540

== ENCOUNTER 2023-09-23 12:45 | Outpatient (AMB) | payer OTHER, SELFPAY ==
--- NOTE | 2023-09-23 12:51 | A.OFFVIS_ITS ---
Intake Intake Visit Reasons: ov- Left shoulder pain Intake Note: Leigha is a 47 year old female who presents today for a follow up of her left shoulder S/P left shoulder arthroscopy 11/11/2020. Patient reports that she has been having increased left shoulder pain, she explains that she is taking care of her mother who is declining. She explains that her mother took a fall on tuesday landing on her left arm. Since this she has been having significant pain in the left shoulder, she has been debating on going to the E#D as all OTC remedies are not helpful. Her pain is radiating from the neck and down the arm, she feels like there is someing in her arm pulling and tearing. Allergies Penicillins [PENICILLINS] Allergy (Severe, Verified 09/23/23 12:55) Anaphylaxis amoxicillin [AMOXICILLIN] Allergy (Intermediate, Verified 09/23/23 12:55) HIVES ciprofloxacin [From CIPRO] Allergy (Intermediate, Verified 09/23/23 12:55) HIVES citalopram Allergy (Intermediate, Verified 09/23/23 12:55) sweating, panic attack diclofenac [DICLOFENAC] Allergy (Intermediate, Verified 09/23/23 12:55) HIVES, ITCHING, FLUSHED Sulfa (Sulfonamide Antibiotics) [SULFA(SULFONAMIDE ANTIBIOTICS)] Allergy (Intermediate, Verified 09/23/23 12:55) HIVES trazodone Allergy (Mild, Verified 09/23/23 12:55) increase appetite cyclobenzaprine [From Flexeril] Allergy (Unknown, Verified 09/23/23 12:55) unknown paroxetine [Paxil] Adverse Reaction (Intermediate, Verified 09/23/23 12:55) stomach upset quetiapine [Seroquel] Adverse Reaction (Unknown, Verified 09/23/23 12:55) Increased sweating and weight gain HPI ov- Left shoulder pain HPI Details Arlette comes in with left shoulder pain. She had a rotator cuff surgery 3 years ago has had off and on pain since then but over the last 3-4 months she is having worsening weakness difficulty getting her hand above shoulder. She is caring for her ailing mother. She has been doing home exercises with bands taking anti-inflammatories regularly. [facility] Medical History (Updated 05/27/23 @ 10:06 by Lilliana Wei RN) Elevated cholesterol HTN (hypertension) Hand injury Annual physical exam Back pain GERD (gastroesophageal reflux disease) Anxiety Rotator cuff tear Complete tear of left rotator cuff Surgical History (Updated 05/27/23 @ 10:07 by Lilliana Wei RN) Hx of cholecystectomy S/P right rotator cuff repair S/P left rotator cuff repair Family History Mother No problems noted. Father Lung cancer Sister Mental health disorder Social History Housing: House Alcohol intake: former Patient Tobacco Use Status: Former Tobacco user Cigarettes Per Day: 3 e-Cigarette/Vaping Use: Never Used Second Hand Smoke Exposure: No Current occupational status: unemployed Current occupation: Unemployed - Right Handed Cognitive needs: No Hearing needs: No Vision needs: No Physical Exam Extrem Other: 4/5 EC + H/N neg lift off Office Procedures Joint Injection/Drain Joint Injection/Drain Details: Injected 1 mL of Decadron and 3 mL 1% lidocaine and 3 mL of 0.25% Marcaine. Site was prepped using aseptic technique. Patient tolerated the procedure well. Primary Site: left shoulder Approach Used: posterolateral Coding 79686 - Large joint Procedure code (CPT) selection complete Results Reviewed Results Reviewed: 09/23/23 13:09 BUPivacaine MPF 0.25 % [Sensorcaine-MPF 0.25% 10 ML] 10 ml .ROUTE .STK-MED ONE Lidocaine HCl 2 % MPF [Xylocaine 2 % MPF] 5 ml .ROUTE .STK-MED ONE dexAMETHasone sod phosphate [Decadron] 4 mg .ROUTE .STK-MED ONE Assessment & Plan Assessment & Plan (1) S/P left rotator cuff repair: Code(s): Z98.890 - Other specified postprocedural states Plan: This is a 47-year-old status post left rotator cuff repair 3 years ago who has worsening pain that is not responding to NSAIDs, activity modification and home exercise program. I recommend MRI to assess her left rotator cuff. I did inject her left shoulder subacromial space. Orders: Orders MR shoulder LT wo con 09/23/23 Z98.890 - Other specified postprocedural states Coding Level of Care Code Est Pt Level 3 (73670) Diagnoses S/P left rotator cuff repair Z98.890 CPT Codes Coding - 77361 Large joint: 46195 - Large joint ([id number])
== END 2023-09-23 14:25 | disposition home or self-care (01) ==
PROVIDERS: PCP Internal Medicine; Visit Provider Orthopaedic Surgery
DX: M25.512 Pain in left shoulder (principal); Z47.89 Encounter for other orthopedic aftercare
CPT/HCPCS: 20610; 99213

== ENCOUNTER → 2023-09-23 12:45 | Outpatient (BNVA) | payer OTHER, SELFPAY | PROVIDERS: PCP Internal Medicine; Visit Provider Orthopaedic Surgery | DX: M75.102 Unspecified rotator cuff tear or rupture of left shoulder, not specified as traumatic (principal); Z98.890 Other specified postprocedural states | CPT/HCPCS: 20610; 99212; J1100 ==

== ENCOUNTER 2023-11-10 11:15 | Outpatient (AMB) | payer OTHER, SELFPAY ==
[2023-11-10 11:51] VITALS: BMI 41.3
--- NOTE | 2023-11-10 11:51 | MHC.OFFVIS ---
Intake Vital Signs 11/10/23 11:51 Height 5 ft 5 in Weight 248 lb BMI 41.3 Intake Visit Reasons: OV-Left shoulder MRI review Intake Note: Leigha is a 47 year old right hand dominant female who presents today for an MRI review of her left shoulder. Hx of left shoulder arthroscopy 11/11/2020. MRI done at [facility] [[email or web address]] Allergies Penicillins [PENICILLINS] Allergy (Severe, Verified 09/23/23 12:55) Anaphylaxis amoxicillin [AMOXICILLIN] Allergy (Intermediate, Verified 09/23/23 12:55) HIVES ciprofloxacin [From CIPRO] Allergy (Intermediate, Verified 09/23/23 12:55) HIVES citalopram Allergy (Intermediate, Verified 09/23/23 12:55) sweating, panic attack diclofenac [DICLOFENAC] Allergy (Intermediate, Verified 09/23/23 12:55) HIVES, ITCHING, FLUSHED Sulfa (Sulfonamide Antibiotics) [SULFA(SULFONAMIDE ANTIBIOTICS)] Allergy (Intermediate, Verified 09/23/23 12:55) HIVES trazodone Allergy (Mild, Verified 09/23/23 12:55) increase appetite cyclobenzaprine [From Flexeril] Allergy (Unknown, Verified 09/23/23 12:55) unknown paroxetine [Paxil] Adverse Reaction (Intermediate, Verified 09/23/23 12:55) stomach upset quetiapine [Seroquel] Adverse Reaction (Unknown, Verified 09/23/23 12:55) Increased sweating and weight gain HPI OV-Left shoulder MRI review HPI Details Leigha is a 47 year old woman who returns for an MRI review of her left shoulder pain. She has a hx of left shoulder on 11/11/20. She continues to complain of pain with daily activity, along with weakness. She has pain when trying to raise her arm above her head. She has been taking NSAIDs and continues to work on strengthening exercises at home. She was last seen, and injected, on 09/23/23. This injection was entirely unhelpful. She states she had no relief. [facility] Medical History (Updated 11/10/23 @ 18:32 by Dariel Cain MD) Elevated cholesterol HTN (hypertension) Hand injury Annual physical exam Back pain GERD (gastroesophageal reflux disease) Anxiety Rotator cuff tear Complete tear of left rotator cuff Surgical History (Updated 05/27/23 @ 10:07 by Lilliana Wei RN) Hx of cholecystectomy S/P right rotator cuff repair S/P left rotator cuff repair Family History Mother No problems noted. Father Lung cancer Sister Mental health disorder Social History Housing: House Alcohol intake: former Patient Tobacco Use Status: Former Tobacco user Cigarettes Per Day: 3 e-Cigarette/Vaping Use: Never Used Second Hand Smoke Exposure: No Current occupational status: unemployed Current occupation: Unemployed - Right Handed Cognitive needs: No Hearing needs: No Vision needs: No Review of Systems Const All systems reviewed & are unremarkable except as noted in HPI and below Physical Exam Vital Signs: BMI result Body Mass Index 41.3 Const General: no acute distress, alert and awake Orientation/consciousness: patient oriented x3 HEENT Head: Yes normocephalic and Yes atraumatic Eyes EOM: EOMs intact bilaterally Resp Effort & Inspection: normal respiratory effort and able to speak in complete sentences Cardio Jugular venous distension: no JVD Skin General skin exam: turgor normal Rashes: no rashes Neuro General: patient oriented x3 Extrem Other: 30/90/130/S1 Psych Appearance: grossly normal Affect: normal affect Attitude: cooperative Results Reviewed Results Reviewed: I personally reviewed relevant MR images There is susceptibility artifact but no appreciable rtc re-tear or abnormal findings. Post rtc repair Assessment & Plan Assessment & Plan (1) S/P left rotator cuff repair: Code(s): Z98.890 - Other specified postprocedural states Plan: Arlette is several years status post left rotator cuff repair. There is no evidence of no internal derangement and her pain is not anatomic and out of proportion. I have not been able to help her with subacromial injections and I think she might be best served with pain management. I discussed this with her and she is willing to give that go. I will put in the order and they will contact her (2) Left shoulder pain: Code(s): M25.512 - Pain in left shoulder Plan Scribed for Dariel Cain MD by Danish Nichols medical support assistant, on 11/10/23 at 12:05 PM, EST. Orders: Referrals Pain Management Referral M25.512 - Pain in left shoulder, Z98.890 - Other specified postprocedural states Coding Level of Care Code Est Pt Level 3 (90493) Diagnoses S/P left rotator cuff repair Z98.890 Left shoulder pain M25.512
== END 2023-11-10 12:15 | disposition home or self-care (01) ==
PROVIDERS: PCP Internal Medicine; Visit Provider Orthopaedic Surgery
DX: M25.512 Pain in left shoulder (principal)
CPT/HCPCS: 99213

== ENCOUNTER → 2023-11-10 11:15 | Outpatient (BNVA) | payer OTHER, SELFPAY | PROVIDERS: PCP Internal Medicine; Visit Provider Orthopaedic Surgery | DX: M25.512 Pain in left shoulder (principal); Z98.890 Other specified postprocedural states | CPT/HCPCS: 99212 ==

== ENCOUNTER 2023-11-24 12:44 | Emergency (ER) | payer OTHER, SELFPAY ==
[2023-11-24 12:50] VITALS: BP 108/60; PULSE 105; O2SAT 97
[2023-11-24 13:21] VITALS: BP 142/101; PULSE 112; RESP 22; TEMP 36.4; O2SAT 98; BMI 44.1
--- NOTE | 2023-11-24 13:21 | ED.GENADULT ---
HPI - General Adult General Chief complaint: Abdominal Pain Stated complaint: ABD PAIN,POUND IN HEART,ANX,POOR SELF CARE PER EMS Time Seen by Provider: 11/24/23 20:19 Source: patient Mode of arrival: ambulatory Limitations: no limitations History of Present Illness HPI narrative: patient presents with severe anxiety. States that she has had intermittent rectal bleeding for 1 year but has not had her complete GI workup. Her psychiatrist started her on seroquel which made her feel worse and she has not slept. She denies suicidal or homicidal ideation. She is very tearful. Onset (ago): day(s) Related Data Home Medications Medication Instructions Recorded Confirmed tizanidine 4 mg capsule 4 mg PO Q6-8H PRN Spasms 09/18/20 05/27/23 gabapentin 600 mg tablet 600 mg PO TID 10/16/20 05/27/23 buspirone 30 mg tablet 1 tab PO BID 11/04/20 05/27/23 Previous Rx's Medication Instructions Recorded fluconazole 150 mg tablet 150 mg PO Q3D 2 doses #2 tabs 05/05/22 ketoconazole 2 % topical cream 1 appl topical DAILY #60 grams 01/25/23 bisacodyl 5 mg tablet,delayed 20 mg (4 x 5 mg) PO ONCE 05/05/23 release (Dulcolax (bisacodyl)) colonoscopy prep 1 day #4 tabs pantoprazole 40 mg tablet,delayed 40 mg PO DAILY 30 days #30 tabs 05/05/23 release polyethylene glycol 3350 17 238 g PO ONCE 1 day #238 grams 05/05/23 gram/dose oral powder (Miralax) sucralfate 1 gram tablet 1 g PO QIDACHS 21 days #90 tabs 05/05/23 benzonatate 200 mg capsule 200 mg PO BID PRN cough #20 caps 05/12/23 doxycycline hyclate 100 mg tablet 100 mg PO BID 5 days #10 tabs 05/12/23 cefuroxime axetil 500 mg tablet 500 mg PO BID #20 tabs 05/18/23 dexamethasone 6 mg tablet 6 mg PO DAILY #6 tabs 05/18/23 codeine 10 mg-guaifenesin 100 mg/5 10 ml PO Q6H PRN cough #237 mL 05/19/23 mL oral liquid norethindrone (contraceptive) 0.35 0.35 mg PO DAILY #84 tabs 05/27/23 mg tablet omeprazole 20 mg capsule,delayed 20 mg PO DAILY #90 caps 06/03/23 release propranolol 40 mg tablet 40 mg PO BID #180 tabs 10/02/23 Allergies Allergy/AdvReac Type Severity Reaction Status Date / Time Penicillins [PENICILLINS] Allergy Severe Anaphylaxis Verified 09/23/23 12:55 amoxicillin [AMOXICILLIN] Allergy Intermediate HIVES Verified 09/23/23 12:55 ciprofloxacin [From CIPRO] Allergy Intermediate HIVES Verified 09/23/23 12:55 citalopram Allergy Intermediate sweating, Verified 09/23/23 12:55 panic attack diclofenac [DICLOFENAC] Allergy Intermediate HIVES, Verified 09/23/23 12:55 ITCHING, FLUSHED Sulfa (Sulfonamide Allergy Intermediate HIVES Verified 09/23/23 12:55 Antibiotics) [SULFA(SULFONAMIDE ANTIBIOTICS)] trazodone Allergy Mild increase Verified 09/23/23 12:55 appetite cyclobenzaprine Allergy Unknown unknown Verified 09/23/23 12:55 [From Flexeril] paroxetine [Paxil] AdvReac Intermediate stomach Verified 09/23/23 12:55 upset quetiapine [Seroquel] AdvReac Unknown Increased Verified 09/23/23 12:55 sweating and weight gain Review of Systems Review of Systems: Yes all other systems are reviewed and are negative Neurologic: Denies Sensory deficit (Neuro) PMFSH Past Medical History Medical History Elevated cholesterol HTN (hypertension) Hand injury Annual physical exam Back pain GERD (gastroesophageal reflux disease) Anxiety Rotator cuff tear Complete tear of left rotator cuff Surgical History Hx of cholecystectomy S/P right rotator cuff repair S/P left rotator cuff repair Family History Family History Mother No problems noted. Father Lung cancer Sister Mental health disorder Social History Social History Housing: House Alcohol intake: former Patient Tobacco Use Status: Former Tobacco user Cigarettes Per Day: 3 Smoked in Last 30 Days: No e-Cigarette/Vaping Use: Never Used Second Hand Smoke Exposure: No Use of substances other than those prescribed or required for medical reasons: No Advance Directives: No Advance Directives Information Provided: No Patient : No Current occupational status: unemployed Current occupation: Unemployed - Right Handed Cognitive needs: No Hearing needs: No Vision needs: No Physical Exam ED Vital Signs: Vital Signs - 24 hr 11/24/23 13:21 11/24/23 20:29 Temperature 97.5 F 98.1 F Pulse Rate 112 H 119 H Respiratory Rate 22 H 18 Blood Pressure 142/101 H 178/133 H Pulse Oximetry 98 97 Oxygen Delivery Method Room Air Room Air BMI result Body Mass Index 44.1 Const Other: extremely anxious and tearful Nutritional Appearance: obese Orientation/consciousness: oriented to person and patient oriented x3 Limitations: no limitations HENMT Head: Yes normal to inspection Ears: external ears normal General nose exam: Normal external nose present Mouth: Normal oral and palatal mucosa present and oropharynx normal Throat: Yes posterior oropharynx normal Eyes General: appearance normal, both eyes and all related structures Neck Neck: Yes normal visual inspection Chest Chest palpation & inspection: normal inspection of the chest Resp Auscultation: clear to auscultation bilaterally Cardio Jugular venous distension: no JVD Rate: regular rate Rhythm: regular rhythm Heart sounds: S1 normal heart sound present and S2 normal heart sound present GI Inspection: Yes normal to inspection Palpation (GI): Soft to palpation, nontender and No hepatosplenomegaly present Auscultation: normal bowel sounds Other: multiple hemorrhoids, brown stool guiac negative on occult blood General: Yes no CVA tenderness Back/Spine/Pelvis Back: no CVA tenderness Skin General skin exam: no rashes or lesions noted Neuro General: oriented to person and patient oriented x3 Cranial nerves: Yes CN's II-XII intact bilaterally Motor exam (neuro): 5/5 motor strength present throughout Sensory Exam: No Sensory deficit (Neuro) Extrem General: Yes normal to inspection Psych Appearance: grossly normal Course Course Course Narrative: RME:?47 yo female hx of hemorrhoids, HTN. HDL here via EMS for generalized weakness and feeling dehydrated. Reports bright red blood in toilet bowl and on wiping w/ BM x months. Currently follows lauryn/ Dr. Altman for 1 yr of bloody stools. denies ct scan or colonoscopy. Recently started on seroquel for insomnia. Took an extra seroquel last night which did not help. denies cp, sob, vomiting, melana plan: labs, occult blood +/- imaging Full HPI, ROS and PE to be performed by the primary ED provider. Reevaluation(s) Reevaluation #1: patient denies suicidal or homicidal ideation will give her medication to relax her and clear her medically Time: 21:02 Medications Administered Discontinued Medications Generic Name Dose Route Start Last Admin Trade Name Geena PRN Reason Stop Dose Admin Alprazolam 1 mg 11/24/23 20:43 11/24/23 20:46 Alprazolam 0.5 Mg Tablet PO 11/24/23 20:44 1 mg ONCE ONE Administration Medical Decision Making Differential Diagnosis Differential Diagnoses: The differential diagnosis associated with the presentation includes (anxiety, GI bleed, hemorrhoids, rectal fissure) Admission/Observation Consideration of admission/observation: Escalation of care including admission/observation considered (upon arrival patient was considered for admission) Lab Data MDM Lab Attestation statement: I reviewed the patient's lab results. (will not treat the urine at this time. Patient had a contaminated Urine which looked worse than tonights) 11/24/23 13:54 11/24/23 13:54 Labs: Lab Results 11/24/23 11/24/23 Range/Units 13:54 21:01 WBC 11.8 H (4.8-10.8) X10*3/uL RBC 5.49 (4.20-5.50) X10*6/uL Hgb 15.4 (12.0-16.0) g/dl Hct 46.5 (37.0-47.0) % MCV 84.7 (80.0-98.0) fL MCH 28.1 (27.0-33.0) pg MCHC 33.1 (31.0-35.0) g/dl RDW 12.9 (11.0-16.0) % Plt Count 284 (160-400) X10*3/uL MPV 11.3 (9.4-12.3) fL Immature Gran % (Auto) 0.5 H (0.0-0.4) % Neut % (Auto) 72.3 (45-73) % Lymph % (Auto) 18.7 L (20-40) % [place] % (Auto) 7.0 (2-11) % Eos % (Auto) 1.2 (0-4) % Baso % (Auto) 0.3 (0-2) % Lymph # (Auto) 2.2 (1.2-4.9) X10*3/uL [place] # (Auto) 0.8 (0.1-1.2) X10*3/uL Eos # (Auto) 0.1 (0.0-0.4) X10*3/uL Baso # (Auto) 0.0 (0.0-0.2) X10*3/uL Abs Immat Gran (auto) 0.06 H (0.00-0.03) X10*3/uL Absolute Neuts (auto) 8.5 H (2.0-8.3) x10*3/uL Absolute Nucleated RBC 0.000 (0.0-0.012) X10*3/uL Nucleated RBC % (auto) 0.0 (0.0-0.2) /100WBC Hold Blue Top SEE NOTE Sodium 135 (135-145) mmol/L Potassium 4.6 (3.3-5.1) mmol/L Chloride 105 (96-108) mmol/L Carbon Dioxide 17 L (22-29) mmol/L Anion Gap 18 (12-20) BUN 8 L (9-16) mg/dL Creatinine 0.74 (0.5-1.4) mg/dL Estim Creat Clear Calc 124.7 Estimated GFR > 60 Random Glucose 118 H (60-115) mg/dL Calcium 9.8 (8.4-10.2) mg/dL Magnesium 2.0 (1.6-2.6) mg/dL Lipase 14 (8-78) U/L Urine Color Dark Yellow Urine Appearance Cloudy Urine pH 6.5 (5.0-9.0) Ur Specific [place] 1.025 (1.005-1.025) Urine Protein Trace (Neg-Trace) mg/dL Urine Glucose (UA) Negative (Negative) mg/dL Urine Ketones >=160 (Negative) mg/dL Urine Blood Small (1+) H (Negative) Urine Nitrite Negative (Negative) Ur Leukocyte Esterase Large (3+) H (Negative) Urine RBC 3-5 H (0-2) /HPF Urine WBC >50 H (0-5) /HPF Ur Squamous Epith Cells 3-5 (0-2) /HPF Urine Bacteria 3+ (None Seen) Hyaline Casts 0-2 (0-2) /LPF Independent Interpretation I performed an independent interpretation of an: EKG (sinus [address] or twave changes) External Record Review External record reviewed: Outpatient record Prescription Management I considered prescription management with: Antibiotic (will not treat urine at this time because likely contaminant) Chronic Conditions Patient?s care impacted by: Other (anxiety) Social Determinants Patient?s care significantly limited by Social Determinants of Health including: Other Social Determinant of Health (psychiatric) Discharge Plan Discharge Clinical Impression: Anxiety Patient Disposition: Still a Patient Prescriptions: No Action fluconazole 150 mg tablet 150 mg PO Q3D Qty: 2 0RF ketoconazole 2 % cream 1 appl topical DAILY Qty: 60 0RF doxycycline hyclate 100 mg tablet 100 mg PO BID 5 Days Qty: 10 0RF benzonatate 200 mg capsule 200 mg PO BID PRN (Reason: cough) Qty: 20 0RF norethindrone (contraceptive) 0.35 mg tablet 0.35 mg PO DAILY Qty: 84 3RF omeprazole 20 mg capsule,delayed release(DR/EC) 20 mg PO DAILY Qty: 90 3RF propranolol 40 mg tablet 40 mg PO BID Qty: 180 1RF buspirone 30 mg tablet 1 tab PO BID dexamethasone 6 mg tablet 6 mg PO DAILY Qty: 6 0RF cefuroxime axetil 500 mg tablet 500 mg PO BID Qty: 20 0RF codeine-guaifenesin 10-100 mg/5 mL liquid 10 ml PO Q6H PRN (Reason: cough) Qty: 237 0RF gabapentin 600 mg tablet 600 mg PO TID tizanidine 4 mg capsule 4 mg PO Q6-8H PRN (Reason: Spasms) Rx Instructions: do not exceed 3 doses per 24 hrs bisacodyl [Dulcolax (bisacodyl)] 5 mg tablet,delayed release (DR/EC) 20 mg PO ONCE 1 Days Qty: 4 0RF Rx Instructions: Take 4 tablets by mouth at 12:00pm the day before your procedure. polyethylene glycol 3350 [Miralax] 17 gram/dose powder 238 g PO ONCE 1 Days Qty: 238 0RF Rx Instructions: Take as directed by mouth the day before your procedure. pantoprazole 40 mg tablet,delayed release (DR/EC) 40 mg PO DAILY 30 Days Qty: 30 11RF sucralfate 1 gram tablet 1 g PO QIDACHS 21 Days Qty: 90 0RF
--- NOTE | 2023-11-24 13:59 | ECG_ITS ---
Test Reason : cp Blood Pressure : / mmHG Vent. Rate : 116 BPM Atrial Rate : 116 BPM P-R Int : 114 ms QRS Dur : 062 ms QT Int : 328 ms P-R-T Axes : 084 -02 -15 degrees QTc Int : 455 ms Artifact in tracing Sinus tachycardia Nonspecific ST and T wave abnormality Abnormal ECG When compared with ECG of 18-MAY-2023 21:09, No significant change was found Referred By: Juanita Ley Electronically Signed By:CEDRIC JARAMILLO
[2023-11-24 14:01] LABS: MANUAL DIFF FLAG NO
[2023-11-24 14:06] LABS: Basophils Percent Auto 0.3 % (0-2); Eosinophils Absolute Auto 0.1 X10*3/uL (0.0-0.4); Eosinophils Percent Auto 1.2 % (0-4); Hematocrit 46.5 % (37.0-47.0); Hemoglobin 15.4 g/dl (12.0-16.0); Imm Gran Abs Auto 0.06 X10*3/uL (0.00-0.03); Imm Gran Pct Auto 0.5 % (0.0-0.4); Lymphocytes Absolute Auto 2.2 X10*3/uL (1.2-4.9); Lymphocytes Percent Auto 18.7 % (20-40); Mean Corpuscular HGB Conc 33.1 g/dl (31.0-35.0); Mean Corpuscular Hemoglobin 28.1 pg (27.0-33.0); Mean Corpuscular Volume 84.7 fL (80.0-98.0); Mean Platelet Volume 11.3 fL (9.4-12.3); Monocytes Absolute Auto 0.8 X10*3/uL (0.1-1.2); Neutrophils Absolute Auto 8.5 x10*3/uL (2.0-8.3); Neutrophils Percent Auto 72.3 % (45-73); Platelet Count 284 X10*3/uL (160-400); Red Blood Count 5.49 X10*6/uL (4.20-5.50); Red Cell Distribution Width 12.9 % (11.0-16.0); White Blood Count 11.8 X10*3/uL (4.8-10.8)
[2023-11-24 14:28] LABS: Anion Gap 18 (12-20); Blood Urea Nitrogen 8 mg/dL (9-16); Calcium 9.8 mg/dL (8.4-10.2); Carbon Dioxide 17 mmol/L (22-29); Chloride 105 mmol/L (96-108); Creatinine Clr Calc Pharmacy 124.7; Estimated Glomerular Filt Rate > 60; Glucose Random 118 mg/dL (60-115); Lipase 14 U/L (8-78); Potassium 4.6 mmol/L (3.3-5.1); Sodium 135 mmol/L (135-145)
[2023-11-24 20:29] VITALS: BP 178/133; PULSE 119; RESP 18; TEMP 36.7; O2SAT 97
--- NOTE | 2023-11-24 20:34 | PC.NURSE ---
Spoke with patient's mother who requested an update. I informed her that the pt is back in a room and being seen now. Told mother I will call with more eupdates. Cecilia (Mom) [phone]
[2023-11-24] MEDS: ALPRAZolam 0.5 MG TABLET 1 MG PO (20:46)
[2023-11-24 21:07] LABS: Appearance Urine Cloudy; Color Urine Dark Yellow; Glucose Urine UA Negative (Negative); Leukocyte Esterase Urine Large (3+) (Negative); Nitrite Urine Negative (Negative); PH 6.5 (5.0-9.0); Specific Gravity - Urine 1.025 (1.005-1.025); UMIC TRIGGER UACC YES; Urine Blood Small (1+) (Negative); Urine Ketones >=160 mg/dL (Negative); Urine Protein Trace mg/dL (Neg-Trace)
[2023-11-24 21:20] LABS: Bacteria Urine 3+ (None Seen); Hyaline Casts Urine 0-2 /LPF (0-2); UACC Culture Trigger YES; WBC Urine >50 /HPF (0-5)
== END 2023-11-24 22:39 | disposition home or self-care (01) ==
PROVIDERS: Physician Assistant Medical; Emergency Provider Emergency Medicine; PCP Internal Medicine
DX: F41.1 Generalized anxiety disorder (principal); F43.0 Acute stress reaction; R07.89 Other chest pain; R00.0 Tachycardia, unspecified; Z79.899 Other long term (current) drug therapy
CPT/HCPCS: 36415; 80048; 81001; 83690; 83735; 85025; 87086; 93005; 99283; 99285

== ENCOUNTER → 2023-11-24 13:59 | Outpatient (BNV) | payer OTHER, SELFPAY | PROVIDERS: Visit Provider Internal Medicine | DX: R07.9 Chest pain, unspecified (principal); R94.31 Abnormal electrocardiogram [ECG] [EKG] | CPT/HCPCS: 93010 ==

== ENCOUNTER 2024-10-30 12:10 | Outpatient (AMB) | payer OTHER, SELFPAY ==
--- NOTE | 2024-10-30 12:29 | MHC.PC.OV ---
Vital Signs 10/30/24 12:30 Height 5 ft 5 in Weight 282 lb BMI 46.9 BP 135/88 Blood Pressure Location Lt brachial Position Sitting Pulse 92 Pulse Source Pulse Oximeter Pulse Oximetry (%) 97 Intake Visit Reasons: PE Intake Note: pt is here for PE Allergies Penicillins [PENICILLINS] Allergy (Severe, Verified 10/30/24 12:30) Anaphylaxis amoxicillin [AMOXICILLIN] Allergy (Intermediate, Verified 10/30/24 12:30) HIVES ciprofloxacin [From CIPRO] Allergy (Intermediate, Verified 10/30/24 12:30) HIVES citalopram Allergy (Intermediate, Verified 10/30/24 12:30) sweating, panic attack diclofenac [DICLOFENAC] Allergy (Intermediate, Verified 10/30/24 12:30) HIVES, ITCHING, FLUSHED Sulfa (Sulfonamide Antibiotics) [SULFA(SULFONAMIDE ANTIBIOTICS)] Allergy (Intermediate, Verified 10/30/24 12:30) HIVES trazodone Allergy (Mild, Verified 10/30/24 12:30) increase appetite cyclobenzaprine [From Flexeril] Allergy (Unknown, Verified 10/30/24 12:30) unknown paroxetine [Paxil] Adverse Reaction (Intermediate, Verified 10/30/24 12:30) stomach upset quetiapine [Seroquel] Adverse Reaction (Unknown, Verified 10/30/24 12:30) Increased sweating and weight gain Medication List - Last Reconciled 10/30/24 by Sherita Washburn MD buspirone 1 tab PO BID escitalopram oxalate 20 mg PO DAILY eszopiclone 3 mg PO BEDTIME PRN gabapentin 600 mg PO TID mirtazapine 7.5 mg PO BEDTIME norethindrone (contraceptive) 0.35 mg PO DAILY omeprazole 20 mg PO DAILY propranolol 40 mg PO BID Tobacco use date assessed: 03/14/23 HPI PE HPI Details Pt presents for PE. PFSH Medical History Elevated cholesterol HTN (hypertension) Hand injury Annual physical exam Back pain GERD (gastroesophageal reflux disease) Anxiety Rotator cuff tear Complete tear of left rotator cuff Surgical History Hx of cholecystectomy S/P right rotator cuff repair S/P left rotator cuff repair Family History Mother No problems noted. Father Lung cancer Sister Mental health disorder Social History Housing: House Alcohol intake: former Patient Tobacco Use Status: Former Tobacco user Cigarettes Per Day: 3 e-Cigarette/Vaping Use: Never Used Second Hand Smoke Exposure: No Current occupational status: unemployed Current occupation: Unemployed - Right Handed Cognitive needs: No Hearing needs: No Vision needs: No Questionnaire Thrive Questionnaire Date Thrive assessed: 03/14/23 ASHLEY-7 AMB Questionnaire ASHLEY-7 Date ASHLEY - 7 assessed: 03/14/23 Source: Developed by Drs. Rigo Villaseñor, Oliva Loyd, Tarik Robledo and colleagues, with an educational keegan from [employer]. Review of Systems Const All systems reviewed & are unremarkable except as noted in HPI and below Reports no additional complaints Eyes Reports no additional complaints ENT Reports no additional complaints Card Reports no additional complaints Resp Reports no additional complaints GI Reports no additional complaints Reports no additional complaints Physical exam (Primary Care) Vital Signs: Last Vital Signs Pulse 92 10/30/24 12:30 BP 140/88 H 10/30/24 12:30 Pulse Ox 97 10/30/24 12:30 BMI result Body Mass Index 46.9 Tobacco/Smoking Status: Tobacco use Status Tobacco use date assessed 03/14/23 10/30/24 12:33 Patient Tobacco Use Status Former Tobacco user 10/30/24 12:33 e-Cigarette/Vaping Use Never Used 10/30/24 12:33 Thrive Assessment: Date of Thrive Assessment Date Thrive assessed 03/14/23 10/30/24 12:33 Const General: no acute distress HENMT Head: Yes normal to inspection Ears: hearing grossly normal bilaterally Mouth: Normal oral and palatal mucosa present Throat: Yes posterior oropharynx normal Eyes General: appearance normal, both eyes and all related structures Neck Neck: Yes no lymphadenopathy and Yes supple Resp Effort & Inspection: normal respiratory effort Auscultation: clear to auscultation bilaterally Cardio Rhythm: regular rhythm Heart sounds: S1 normal heart sound present and S2 normal heart sound present GI Inspection: Yes normal to inspection Palpation (GI): Soft to palpation Percussion: Yes normal to percussion Auscultation: normal bowel sounds Coding Level of Care Code Est Pt Prev Care 40-64y(96995) Diagnoses Essential hypertension I10 Annual physical exam Z00.00 Hyperlipidemia E78.5 Hyperglycemia R73.9 Assessment & Plan Assessment & Plan (1) Essential hypertension: Code(s): I10 - Essential (primary) hypertension Category: Medical Plan: Increase propranolol to 60 mg twice a day, low-sodium diet increase exercise weight loss discussed with the patient (2) Annual physical exam: Code(s): Z00.00 - Encounter for general adult medical examination without abnormal findings Category: Medical Plan: well balanced diet regular exercise weight loss discussed with the patient, patient will schedule mammogram, Cologuard will be checked, she is up-to-date with the Pap smear (3) Hyperlipidemia: Code(s): E78.5 - Hyperlipidemia, unspecified Category: Medical Plan: Low-cholesterol diet regular physical activity discussed with the patient she will return for fasting blood work (4) Hyperglycemia: Code(s): R73.9 - Hyperglycemia, unspecified Category: Medical Plan: ADA diet increase exercise discussed with the patient check A1c Orders: Orders Hemoglobin A1c Today E78.5 - Hyperlipidemia, unspecified, I10 - Essential (primary) hypertension, R73.9 - Hyperglycemia, unspecified, Z00.00 - Encounter for general adult medical examination without abnormal findings Follicle Stimulating Hormone Today E78.5 - Hyperlipidemia, unspecified, I10 - Essential (primary) hypertension, R73.9 - Hyperglycemia, unspecified, Z00.00 - Encounter for general adult medical examination without abnormal findings Syphilis Screen Today E78.5 - Hyperlipidemia, unspecified, I10 - Essential (primary) hypertension, R73.9 - Hyperglycemia, unspecified, Z00.00 - Encounter for general adult medical examination without abnormal findings HIV Ab/Ag Today E78.5 - Hyperlipidemia, unspecified, I10 - Essential (primary) hypertension, R73.9 - Hyperglycemia, unspecified, Z00.00 - Encounter for general adult medical examination without abnormal findings CT NG by PCR Today E78.5 - Hyperlipidemia, unspecified, I10 - Essential (primary) hypertension, R73.9 - Hyperglycemia, unspecified, Z00.00 - Encounter for general adult medical examination without abnormal findings Comprehensive [place]. Panel Fast Today E78.5 - Hyperlipidemia, unspecified, I10 - Essential (primary) hypertension, R73.9 - Hyperglycemia, unspecified, Z00.00 - Encounter for general adult medical examination without abnormal findings Lipid Panel Today E78.5 - Hyperlipidemia, unspecified, I10 - Essential (primary) hypertension, R73.9 - Hyperglycemia, unspecified, Z00.00 - Encounter for general adult medical examination without abnormal findings TSH reflex Free T4 Today E78.5 - Hyperlipidemia, unspecified, I10 - Essential (primary) hypertension, R73.9 - Hyperglycemia, unspecified, Z00.00 - Encounter for general adult medical examination without abnormal findings Complete Blood Count Auto Diff Today E78.5 - Hyperlipidemia, unspecified, I10 - Essential (primary) hypertension, R73.9 - Hyperglycemia, unspecified, Z00.00 - Encounter for general adult medical examination without abnormal findings Vitamin D 25-OH Total Today E78.5 - Hyperlipidemia, unspecified, I10 - Essential (primary) hypertension, R73.9 - Hyperglycemia, unspecified, Z00.00 - Encounter for general adult medical examination without abnormal findings Referrals Cologuard Test Z12.11 - Encounter for screening for malignant neoplasm of colon, Z12.12 - Encounter for screening for malignant neoplasm of rectum Medications: Changed From propranolol 40 mg PO BID 180 tabs 1RF I10 - Essential (primary) hypertension To propranolol 60 mg (1.5 x 40 mg) PO BID 240 tabs 1RF I10 - Essential (primary) hypertension
[2024-10-30 12:30] VITALS: BP 135/88; PULSE 92; O2SAT 97; BMI 46.9
== END 2024-10-30 13:12 | disposition home or self-care (01) ==
PROVIDERS: PCP Internal Medicine; Visit Provider Internal Medicine
DX: I10 Essential (primary) hypertension (principal); Z00.00 Encounter for general adult medical examination without abnormal findings; E78.5 Hyperlipidemia, unspecified; R73.9 Hyperglycemia, unspecified

== ENCOUNTER 2024-10-30 12:10 | Outpatient (REF) | payer OTHER, SELFPAY ==
[2024-10-30 16:16] LABS: MANUAL DIFF FLAG NO
[2024-10-30 16:34] LABS: Basophils Percent Auto 0.3 % (0-2); Eosinophils Absolute Auto 0.1 X10*3/uL (0.0-0.4); Eosinophils Percent Auto 1.1 % (0-4); Hematocrit 44.5 % (37.0-47.0); Hemoglobin 13.9 g/dl (12.0-16.0); Imm Gran Abs Auto 0.05 X10*3/uL (0.00-0.03); Imm Gran Pct Auto 0.5 % (0.0-0.4); Lymphocytes Absolute Auto 1.8 X10*3/uL (1.2-4.9); Lymphocytes Percent Auto 19.6 % (20-40); Mean Corpuscular HGB Conc 31.2 g/dl (31.0-35.0); Mean Corpuscular Hemoglobin 27.6 pg (27.0-33.0); Mean Corpuscular Volume 88.5 fL (80.0-98.0); Mean Platelet Volume 12.1 fL (9.4-12.3); Monocytes Absolute Auto 0.6 X10*3/uL (0.1-1.2); Monocytes Percent Auto 6.3 % (2-11); Neutrophils Absolute Auto 6.7 x10*3/uL (2.0-8.3); Neutrophils Percent Auto 72.2 % (45-73); Platelet Count 288 X10*3/uL (160-400); Red Blood Count 5.03 X10*6/uL (4.20-5.50); Red Cell Distribution Width 14.1 % (11.0-16.0); White Blood Count 9.2 X10*3/uL (4.8-10.8)
[2024-10-30 20:03] LABS: Estimated Average Glucose 123 mg/dL; Hemoglobin A1C 143.2702 umol/L; Hemoglobin A1c % 5.9 % (<6.0)
[2024-10-30 20:35] LABS: Alanine Aminotransferase 12 U/L (0-31); Albumin Level 3.9 g/dL (3.5-5.0); Alkaline Phosphatase 69 U/L (39-117); Anion Gap 11 (12-20); Aspartate Amino Transferase 30 U/L (5-31); Bilirubin Total 0.4 mg/dL (0.0-1.0); Blood Urea Nitrogen 10 mg/dL (9-16); Calcium 9.3 mg/dL (8.4-10.2); Carbon Dioxide 28 mmol/L (22-29); Chloride 102 mmol/L (96-108); Cholesterol 206 mg/dL (<200); Estimated Glomerular Filt Rate > 60; Glucose Fasting 99 mg/dL (60-99); HDL Cholesterol 46 mg/dL (>40); LDL Cholesterol Calculated 135 mg/dL (<100); Potassium 4.3 mmol/L (3.3-5.1); Sodium 137 mmol/L (135-145); Total Protein 7.3 g/dL (6.5-8.0); Triglycerides 125 mg/dL (<150)
[2024-10-30 22:07] LABS: TSH reflex Free T4 1.78 uIU/mL (0.32-4.0)
[2024-10-31 05:04] LABS: Syphilis Screen Nonreactive (Nonreactive)
[2024-10-31 05:33] LABS: HIV AB/AG Nonreactive (Nonreactive); HIV Num 1 0.05 S/CO (0.00-0.99)
== END 2024-10-30 12:11 | disposition home or self-care (01) ==
LOC: HO.HMGCLDS 12:10
PROVIDERS: PCP Internal Medicine; Visit Provider Internal Medicine
DX: Z00.00 Encounter for general adult medical examination without abnormal findings (principal); I10 Essential (primary) hypertension; E78.5 Hyperlipidemia, unspecified; R73.9 Hyperglycemia, unspecified
CPT/HCPCS: 36415; 80053; 80061; 82306; 83001; 83036; 84443; 85025; 86780; 87389; 99396

== ENCOUNTER 2024-11-04 11:39 | Emergency (ER) | payer OTHER, SELFPAY ==
--- NOTE | ~2024-11-04 | XR_ITS ---
EXAMINATION: XR ANKLE, LEFT CLINICAL INFORMATION: fall, pain COMPARISON: Left ankle x-ray on 03/12/2021 TECHNIQUE: AP, lateral, and mortise views of the left ankle. FINDINGS: No fracture. Alignment is anatomic. No erosions. Joint spaces are maintained. Soft tissues are normal. XR/XR ankle LT 2V IMPRESSION: Normal left ankle. Electronically signed by: Hannah Smith MD 11/04/2024 02:10 PM [facility] [place]
--- NOTE | ~2024-11-04 | XR_ITS ---
EXAMINATION: XR SACRUM AND COCCYX CLINICAL INFORMATION: fall, pain COMPARISON: None available. TECHNIQUE: 3 views frontal lateral oblique FINDINGS: There are no fractures. No bone, joint or soft tissue abnormality is demonstrated. XR/XR sacrum coccyx min 2V IMPRESSION: No radiographic evidence of sacral fracture. Electronically signed by: Josue Harding MD 11/04/2024 03:24 PM EST
--- NOTE | ~2024-11-04 | XR_ITS ---
EXAMINATION: XR THORACIC SPINE CLINICAL INFORMATION: fall, pain COMPARISON: None available. TECHNIQUE: 3 views of the thoracic spine were obtained. FINDINGS: There is no fracture or bone destruction seen and the vertebral alignment is normal. There is no disc space narrowing. There is no abnormality of the paraspinal soft tissues. XR/XR thoracic spine 2V IMPRESSION: No radiographic evidence of acute fracture. Electronically signed by: Josue Harding MD 11/04/2024 03:27 PM [facility]
--- NOTE | ~2024-11-04 | XR_ITS ---
EXAMINATION: XR SHOULDER, LEFT CLINICAL INFORMATION: fall, pain COMPARISON: None available. TECHNIQUE: Three views of the left shoulder. FINDINGS: There is mild acromioclavicular osteoarthritis. Glenohumeral joint is well preserved. No fracture. Alignment is anatomic. Soft tissues are normal with no abnormal calcifications. Postsurgical changes at the humeral head. XR/XR shoulder LT min 2V IMPRESSION: Mild degenerative disease of the left shoulder. Electronically signed by: Hannah Smith MD 11/04/2024 02:10 PM [facility]
--- NOTE | ~2024-11-04 | CT_ITS ---
EXAMINATION: CT HEAD WITHOUT CONTRAST CT CERVICAL SPINE WITHOUT CONTRAST CLINICAL INFORMATION: Fall, pain COMPARISON: None. TECHNIQUE: Contiguous axial imaging was performed from the skull base to vertex without intravenous administration of contrast. In addition, helical noncontrast CT imaging was acquired through the cervical spine and source images were reviewed along with axial reconstructions and sagittal and coronal MPRs. DOSE LOWERING TECHNIQUES: This CT examination was performed using dose optimization techniques as appropriate, variously including the following: - Automated exposure control - Adjustment of mA and/or kV according to patient size (this includes techniques or standardized protocols for targeted exams were dose is matched to indication/reason for exam; i.e. extremities or head) - Use of degenerative construction technique DLP: 1545 mGy-cm FINDINGS: HEAD: No intracranial mass, hemorrhage, or midline shift is visualized. The ventricles and sulci are age-appropriate. No extra-axial collections are identified. The paranasal sinuses are well aerated. Streak artifact the left skull base from external clips. CERVICAL SPINE: There is no evidence of acute cervical spine fracture. Vertebral bodies remain normal in height, intervertebral disc spaces are preserved, and alignment is anatomic. No pre- or paravertebral soft tissue abnormality is identified. Limited assessment of the lung apices is unremarkable. CT/CT head/brain wo IV con IMPRESSION: 1. No acute intracranial pathology. 2. No CT evidence of acute cervical spine fracture or traumatic subluxation Electronically signed by: Hannah Smith MD 11/04/2024 02:15 PM [facility] [place]
--- NOTE | ~2024-11-04 | XR_ITS ---
EXAMINATION: XR LUMBAR SPINE CLINICAL INFORMATION: fall, pain COMPARISON: 2018 TECHNIQUE: Frontal lateral and coned-down L5-S1 frontal lateral, total of 3 views FINDINGS: Five [id number] lumbar vertebrae were identified maintaining normal height and alignments. Narrowing of intervertebral disc spaces suggest underlying degenerative disc disease. All visualized levels, Paravertebral soft tissues are unremarkable. There are radiolucencies, most likely superimposed bowel gas.. No radiographic evidence of osteolytic or osteoblastic lesions. XR/XR lumbar spine 2-3V IMPRESSION: 1. No radiographic evidence of acute fracture. 2. Narrowing of intervertebral disc spaces suggest underlying degenerative disc disease. Bone alignments remain satisfactory. Electronically signed by: Josue Harding MD 11/04/2024 03:26 PM [facility]
--- NOTE | ~2024-11-04 | CT_ITS ---
EXAMINATION: CT HEAD WITHOUT CONTRAST CT CERVICAL SPINE WITHOUT CONTRAST CLINICAL INFORMATION: Fall, pain COMPARISON: None. TECHNIQUE: Contiguous axial imaging was performed from the skull base to vertex without intravenous administration of contrast. In addition, helical noncontrast CT imaging was acquired through the cervical spine and source images were reviewed along with axial reconstructions and sagittal and coronal MPRs. DOSE LOWERING TECHNIQUES: This CT examination was performed using dose optimization techniques as appropriate, variously including the following: - Automated exposure control - Adjustment of mA and/or kV according to patient size (this includes techniques or standardized protocols for targeted exams were dose is matched to indication/reason for exam; i.e. extremities or head) - Use of degenerative construction technique DLP: 1545 mGy-cm FINDINGS: HEAD: No intracranial mass, hemorrhage, or midline shift is visualized. The ventricles and sulci are age-appropriate. No extra-axial collections are identified. The paranasal sinuses are well aerated. Streak artifact the left skull base from external clips. CERVICAL SPINE: There is no evidence of acute cervical spine fracture. Vertebral bodies remain normal in height, intervertebral disc spaces are preserved, and alignment is anatomic. No pre- or paravertebral soft tissue abnormality is identified. Limited assessment of the lung apices is unremarkable. CT/CT cervical spine wo IV con IMPRESSION: 1. No acute intracranial pathology. 2. No CT evidence of acute cervical spine fracture or traumatic subluxation Electronically signed by: Hannah Smith MD 11/04/2024 02:15 PM [facility] [place]
--- NOTE | 2024-11-04 11:41 | ED_ITS ---
HPI - Fall General Chief Complaint: Fall Stated Complaint: fall Time Seen by Provider: 11/04/24 12:32 Source: patient Mode of arrival: ambulatory Limitations: no limitations History of Present Illness ED Provider: Kenny HARGROVE HPI Narrative: 48-year-old female history of high cholesterol, COVID in the past, cervical arthritis, rotator cuff tear presents to ED for headache, low back pain, ankle pain, and shoulder pain. Patient states she slipped on the ice and fell down 9 stairs. Patient states he slipped down 9 stairs on her back and hit her head. Patient denies any loss of consciousness. Patient denies any chest pain, shortness of breath, or abdominal pain. Related Data Home Medications ?Medication ?Instructions ?Recorded ?Confirmed gabapentin 600 mg tablet 600 mg PO TID 10/16/20 10/30/24 buspirone 30 mg tablet 1 tab PO BID 11/04/20 05/27/23 escitalopram oxalate 20 mg tablet 20 mg PO DAILY 10/30/24 10/30/24 eszopiclone 3 mg tablet 3 mg PO BEDTIME PRN 10/30/24 10/30/24 mirtazapine 7.5 mg tablet 7.5 mg PO BEDTIME 10/30/24 10/30/24 Previous Rx's ?Medication ?Instructions ?Recorded norethindrone (contraceptive) 0.35 0.35 mg PO DAILY #84 tabs 04/25/24 mg tablet omeprazole 20 mg capsule,delayed 20 mg PO DAILY #90 caps 05/17/24 release propranolol 40 mg tablet 60 mg (1.5 x 40 mg) PO BID #240 10/30/24 tabs oxycodone 5 mg capsule 5 mg PO Q8H PRN pain 3 days #9 caps 11/04/24 Allergies Allergy/AdvReac Type Severity Reaction Status Date / Time Penicillins [PENICILLINS] Allergy Severe Anaphylaxis Verified 11/04/24 11:44 amoxicillin [AMOXICILLIN] Allergy Intermediate HIVES Verified 11/04/24 11:44 ciprofloxacin [From CIPRO] Allergy Intermediate HIVES Verified 11/04/24 11:44 citalopram Allergy Intermediate sweating, Verified 11/04/24 11:44 panic attack diclofenac [DICLOFENAC] Allergy Intermediate HIVES, Verified 11/04/24 11:44 ITCHING, FLUSHED Sulfa (Sulfonamide Allergy Intermediate HIVES Verified 11/04/24 11:44 Antibiotics) [SULFA(SULFONAMIDE ANTIBIOTICS)] trazodone Allergy Mild increase Verified 11/04/24 11:44 appetite cyclobenzaprine Allergy Unknown unknown Verified 11/04/24 11:44 [From Flexeril] paroxetine [Paxil] AdvReac Intermediate stomach Verified 11/04/24 11:44 upset quetiapine [Seroquel] AdvReac Unknown Increased Verified 11/04/24 11:44 sweating and weight gain Review of Systems 2 Review of Systems: Headache, back pain, ankle pain, shoulder pain Yes all other systems are reviewed and are negative [facility] Past Medical History Medical History Elevated cholesterol HTN (hypertension) Hand injury Annual physical exam Back pain GERD (gastroesophageal reflux disease) Anxiety Rotator cuff tear Complete tear of left rotator cuff Surgical History Hx of cholecystectomy S/P right rotator cuff repair S/P left rotator cuff repair Family History Family History Mother No problems noted. Father Lung cancer Sister Mental health disorder Social History Social History Housing: House Alcohol intake: former Patient Tobacco Use Status: Former Tobacco user Cigarettes Per Day: 3 e-Cigarette/Vaping Use: Never Used Second Hand Smoke Exposure: No Advance Directives: No Advance Directives Information Provided: Yes Do you have a plan to hurt others: No Plan Current occupational status: unemployed Current occupation: Unemployed - Right Handed Cognitive needs: No Hearing needs: No Vision needs: No Physical Exam 2 Vital Signs: Vital Signs: Last Vital Signs Temp 98 F 11/04/24 17:50 Pulse 84 11/04/24 17:50 Resp 17 11/04/24 17:50 BP 142/88 H 11/04/24 17:50 Pulse Ox 98 11/04/24 17:50 BMI result Body Mass Index 46.9 Const: General: cooperative, healthy appearing, comfortable, no acute distress, well developed, alert, awake and Physically active O rientation/consciousness: patient oriented x3 HEENT: Head: Yes normal to inspection, Yes No palpable skull fracture present, Yes normocephalic and Yes atraumatic Eyes: General: appearance normal, both eyes and all related structures Neck: Neck: Yes normal visual inspection, Yes full ROM, Yes no lymphadenopathy, Yes no meningeal signs, Yes trachea midline, Yes supple, No anterior neck swelling and No tender Chest: Chest palpation & inspection: normal inspection of the chest and normal palpation of entire chest wall Resp: Effort & Inspection: normal respiratory effort and able to speak in complete sentences Auscultation: clear to auscultation bilaterally Cardio: Jugular venous distension: no JVD Heart sounds: S1 normal heart sound present and S2 normal heart sound present GI: Inspection: Yes normal to inspection Palpation (GI): Soft to palpation, not firm, nontender, no guarding and not rigid : General: Yes no CVA tenderness Back/Spine/Pelvis: Back: no CVA tenderness and No back tenderness Back/spine/pelvis image: 1. Positive for tenderness on palpation. Negative ecchymosis, crepitus, deformity 2. Positive for tenderness on palpation. Negative ecchymosis, crepitus, deformity Skin: General skin exam: no rashes or lesions noted, elasticity normal and turgor normal Neuro: General: patient oriented x3, gait normal, tone normal, moves all extremities, Normal light touch and pain sensation, no meningeal signs, no focal motor deficits, CN's II-XI intact bilaterally and normal sensation to monofilament Extrem: General: Yes normal to inspection, Yes full ROM and Yes capillary refill normal Ankle/foot/toe images: 1. For tenderness on palpation. Negative crepitus, ecchymosis, obivous deformity or swelling. Motor/neuro/vascular exam intact. Psych: Appearance: grossly normal, well kempt and not disheveled Course Course Course Narrative: This is a rapid medical exam. Deferred additional HPI, ROS, PE to primary provider. 48 yo female with history of anxiety, depression here after slip and fall down 9 stairs here with complaints of left ankle pain, entire back/neck pain, tailbone, left upper arm. +Hit head. No LOC. NO AC therapy. No concern for , has not been sexually active >5 yrs. Will obtain x-rays, CT head/cervical spine. VSS -Aliyah Patricio [employer] Medications Administered Discontinued Medications Generic Name Dose Route Start Last Admin Trade Name Freq PRN Reason Stop Dose Admin Acetaminophen 975 mg 11/04/24 13:11 11/04/24 13:15 Acetaminophen 325 Mg Tablet PO 11/04/24 13:12 975 mg ONCE ONE Administration Oxycodone HCl 5 mg 11/04/24 14:46 11/04/24 14:50 Oxycodone Hcl Immed Release 5 Mg Tablet PO 11/04/24 14:47 5 mg ONCE ONE Administration Medical Decision Making Medical Decision Making [facility] Narrative: 48-year-old female presents to ED for falling down the stairs. Patient is sent for imaging. Tylenol given. 5:10pm: All of patient's images came back negative. Patient is safe for discharge. Patient given oxycodone for pain. Patient was not given Toradol due to diclofenac allergy. Patient explained worrisome signs and informed to return to the ED immediately. Patient given copy of all images. Whole-body evaluating negative for signs of life-threatening etiology. Differential Diagnosis Differential Diagnoses: The differential diagnosis associated with the presentation includes (Shows location, ankle fracture, spinal fracture, brain bleed, skull fracture) Admission/Observation Consideration of admission/observation: Escalation of care including admission/observation considered Lab Data [facility] Lab Attestation statement: I reviewed the patient's lab results. Independent Interpretation I performed an independent interpretation of an: Plain X-Ray and CT Scan Radiology Impression Discussion of test interpretation with radiology: I have reviewed the radiologist's reading. Independent Historian Clinical information obtained from an independent historian. History obtained from or confirmed by: Other (Patient) External Record Review External record reviewed: Other (prior visits) Prescription Management I considered prescription management with: Pain Medication Discharge Plan Discharge Clinical Impression: Fall, Back pain, Ankle sprain, Degenerative disc disease, thoracic Patient Disposition: Home, Self-Care Instructions: Ankle Sprain (ED), Fall Prevention for Older Adults (ED), Back Pain (ED) Additional Instructions: Images came back negative for any life-threatening etiologies or fractures. Recommend follow-up with primary care provider. Return to the ED immediately for any chest pain, shortness of breath abdominal pain, headache, dizziness, severe back pain, urinary/bowel incontinence, bloody urine, blood in stool, coughing up blood, bluish/black discolration or any other concerning symptoms. CT/CT head/brain wo IV con IMPRESSION: 1. No acute intracranial pathology. 2. No CT evidence of acute cervical spine fracture or traumatic subluxation Electronically signed by: Hannah Smith MD 11/04/2024 02:15 PM EST RP FINDINGS: There is mild acromioclavicular osteoarthritis. Glenohumeral joint is well preserved. No fracture. Alignment is anatomic. Soft tissues are normal with no abnormal calcifications. Postsurgical changes at the humeral head. XR/XR shoulder LT min 2V IMPRESSION: Mild degenerative disease of the left shoulder. Electronically signed by: Hannah Smith MD 11/04/2024 02:10 PM EST RP FINDINGS: There is no fracture or bone destruction seen and the vertebral alignment is normal. There is no disc space narrowing. There is no abnormality of the paraspinal soft tissues. XR/XR thoracic spine 2V IMPRESSION: No radiographic evidence of acute fracture. Electronically signed by: Josue Harding MD 11/04/2024 03:27 PM EST RP [place] [id number] XRay Report Signed Patient: Arlette Mcdaniel MR#: [id number] : 1975 Acct:[id number] Age/Sex: 48 / F ADM Date: 11/04/24 Loc: HO.ED Attending Dr: Ordering Physician: Dominga Patricio NP Date of Service: 11/04/24 Procedure(s): XR lumbar spine 2-3V Accession Number(s): [id number] cc: Sherita Washburn MD; Dominga Patricio NP~ EXAMINATION: XR LUMBAR SPINE CLINICAL INFORMATION: fall, pain COMPARISON: 2018 TECHNIQUE: Frontal lateral and coned-down L5-S1 frontal lateral, total of 3 views FINDINGS: Five [id number] lumbar vertebrae were identified maintaining normal height and alignments. Narrowing of intervertebral disc spaces suggest underlying degenerative disc disease. All visualized levels, Paravertebral soft tissues are unremarkable. There are radiolucencies, most likely superimposed bowel gas.. No radiographic evidence of osteolytic or osteoblastic lesions. XR/XR lumbar spine 2-3V IMPRESSION: 1. No radiographic evidence of acute fracture. 2. Narrowing of intervertebral disc spaces suggest underlying degenerative disc disease. Bone alignments remain satisfactory. Electronically signed by: Josue Harding MD 11/04/2024 03:26 PM EST RP FINDINGS: No fracture. Alignment is anatomic. No erosions. Joint spaces are maintained. Soft tissues are normal. XR/XR ankle LT 2V IMPRESSION: Normal left ankle. Electronically signed by: Hannah Smith MD 11/04/2024 02:10 PM EST RP Prescriptions: New oxycodone 5 mg capsule 5 mg PO Q8H PRN (Reason: pain) 3 Days Qty: 9 0RF Rx Instructions: Partial Fill upon patient request. No Action norethindrone (contraceptive) 0.35 mg tablet 0.35 mg PO DAILY Qty: 84 3RF omeprazole 20 mg capsule,delayed release(DR/EC) 20 mg PO DAILY Qty: 90 3RF buspirone 30 mg tablet 1 tab PO BID gabapentin 600 mg tablet 600 mg PO TID eszopiclone 3 mg tablet 3 mg PO BEDTIME PRN mirtazapine 7.5 mg tablet 7.5 mg PO BEDTIME escitalopram oxalate 20 mg tablet 20 mg PO DAILY propranolol 40 mg tablet 60 mg PO BID Qty: 240 1RF Stand Alone Forms: Work/School Release Interventions: ED Discharge Assessment Last Done: 11/04/24 17:50 Discharge Date/Time: 11/04/24 17:52 Print Language: Welsh
[2024-11-04 11:42] VITALS: BP 142/88; PULSE 84; RESP 17; TEMP 36.6; O2SAT 98; BMI 46.9
[2024-11-04] MEDS: Acetaminophen 325 MG TABLET 975 MG PO (13:15)
[2024-11-04] MEDS: oxyCODONE HCl Immed Release 5 MG TABLET PO (14:50)
[2024-11-04 17:50] VITALS: BP 142/88; PULSE 84; RESP 17; TEMP 36.6; O2SAT 98
== END 2024-11-04 17:52 | disposition home or self-care (01) ==
PROVIDERS: Emergency Provider Emergency Medicine Emergency Medical Services; PCP Internal Medicine
DX: S93.402A Sprain of unspecified ligament of left ankle, initial encounter (principal); M54.50 Low back pain, unspecified; M51.34 Other intervertebral disc degeneration, thoracic region; R51.9 Headache, unspecified; M54.2 Cervicalgia; M25.512 Pain in left shoulder; W10.9XXA Fall (on) (from) unspecified stairs and steps, initial encounter; Y93.9 Activity, unspecified; Y92.89 Other specified places as the place of occurrence of the external cause; Y99.8 Other external cause status; Z79.899 Other long term (current) drug therapy
CPT/HCPCS: 70450; 72070; 72100; 72125; 72220; 73030; 73600; 99283; 99284

== ENCOUNTER 2024-11-12 11:18 | Outpatient (AMB) | payer OTHER, SELFPAY ==
--- NOTE | 2024-11-12 11:21 | MHC.PC.OV ---
Vital Signs 11/12/24 11:22 Height 5 ft 5 in Weight 285 lb BMI 47.4 BP 114/80 Blood Pressure Location Lt brachial Position Sitting Pulse 87 Pulse Source Pulse Oximeter Pulse Oximetry (%) 97 Oxygen Delivery Method Room Air Intake Visit Reasons: Follow up from ED/fall/requesting meds Intake Note: Pt is here today for a ER follow up visit. Allergies Penicillins [PENICILLINS] Allergy (Severe, Verified 11/12/24 11:24) Anaphylaxis amoxicillin [AMOXICILLIN] Allergy (Intermediate, Verified 11/12/24 11:24) HIVES ciprofloxacin [From CIPRO] Allergy (Intermediate, Verified 11/12/24 11:24) HIVES citalopram Allergy (Intermediate, Verified 11/12/24 11:24) sweating, panic attack diclofenac [DICLOFENAC] Allergy (Intermediate, Verified 11/12/24 11:24) HIVES, ITCHING, FLUSHED Sulfa (Sulfonamide Antibiotics) [SULFA(SULFONAMIDE ANTIBIOTICS)] Allergy (Intermediate, Verified 11/12/24 11:24) HIVES trazodone Allergy (Mild, Verified 11/12/24 11:24) increase appetite cyclobenzaprine [From Flexeril] Allergy (Unknown, Verified 11/12/24 11:24) unknown paroxetine [Paxil] Adverse Reaction (Intermediate, Verified 11/12/24 11:24) stomach upset quetiapine [Seroquel] Adverse Reaction (Unknown, Verified 11/12/24 11:24) Increased sweating and weight gain Medication List - Last Reconciled 11/12/24 by Sherita Washburn MD baclofen 10 mg PO BID buspirone 1 tab PO BID escitalopram oxalate 20 mg PO DAILY eszopiclone 3 mg PO BEDTIME PRN gabapentin 600 mg PO TID mirtazapine 7.5 mg PO BEDTIME norethindrone (contraceptive) 0.35 mg PO DAILY omeprazole 20 mg PO DAILY propranolol 60 mg (1.5 x 40 mg) PO BID Tobacco use date assessed: 11/12/24 Dental Screening Dental Screen Date: 11/12/24 Did you have a dental visit in the last 12 months?: Yes Did you have a dental problem in the last 6 months where you did not have access to dental care?: No Was dental information given to patient?: Patient has dentist HPI Follow up from ED/fall/requesting meds HPI Details Patient fell down the stairs 1 week ago. She went to the ER had negative CT of the brain and x-rays of C-spine lumbar spine and left ankle. Patient has been taking ibuprofen 800 mg twice a day. She complains of neck pain stiffness, lower back stiffness and pain of the ankle when walking but is able to bear the weight. [facility] Medical History Elevated cholesterol HTN (hypertension) Hand injury Annual physical exam Back pain GERD (gastroesophageal reflux disease) Anxiety Rotator cuff tear Complete tear of left rotator cuff Surgical History Hx of cholecystectomy S/P right rotator cuff repair S/P left rotator cuff repair Family History Mother No problems noted. Father Lung cancer Sister Mental health disorder Social History Housing: House Alcohol intake: former Patient Tobacco Use Status: Former Tobacco user Cigarettes Per Day: 3 e-Cigarette/Vaping Use: Never Used Second Hand Smoke Exposure: No service: No Current occupational status: unemployed Current occupation: Unemployed - Right Handed Cognitive needs: No Hearing needs: No Vision needs: No Questionnaire PHQ-9 Over the last 2 weeks, how often have you been bothered by any of the following problems? 1. Little interest or pleasure in doing things: several days 2. Feeling down, depressed, or hopeless: several days 3. Trouble falling or staying asleep, or sleeping too much: several days 4. Feeling tired or having little energy: several days 5. Poor appetite or overeating: several days 6. Feeling bad about yourself - or that you are a failure or have let yourself or your family down: several days 7. Trouble concentrating on things, such as reading the newspaper or watching television: not at all 8. Moving or speaking so slowly that other people could have noticed. Or the opposite - being so fidgety or restless that you have been moving around a lot more than usual: not at all 9. Thoughts that you would be better off or of hurting yourself in some way: not at all Total score: 6 Depression Screening Interpretation: Negative Depression Screening Done: Yes 72061 - PHQ-9 Billing: Yes Source: Developed by Drs. Rigo Villaseñor, Tarik Bowman and colleagues, with an educational keegan from [employer]. Thrive Questionnaire Date Thrive assessed: 11/12/24 I am a: Patient What is your living situation today?: I have a steady place to live Within the past 12 months, did the food you bought not last and you didn't have the money to get more?: Never true Within the past 12 months, did you worry whether your food would run out before you got money to buy more?: Never true Do you have trouble paying for medicines?: No Do you have trouble getting transportation to medical appointments?: Yes Do you have trouble paying your heating and electricity bill?: No Do you have trouble taking care of your child, family member or friend?: No Do you have trouble with day-to-day activities such as bathing, preparing meals, shopping, managing finances, etc.?: Yes Are you currently unemployed and looking for a job?: No Are you interested in more education?: No Please select the resources that you would like help with: Transportation and Daily support THRIVE Score: 1 AUDIT C Alcohol Use Questionnaire (AUDIT-C) 1. How often do you have a drink containing alcohol?: Never 3. How often do you have six or more drinks on one occasion?: Never Total Score: 0 ASHLEY-7 AMB Questionnaire ASHLEY-7 Date ASHLEY - 7 assessed: 11/12/24 Feeling nervous, anxious, or on edge: 1 = Several days Not being able to stop or control worryin = Several days Worrying too much about different things: 1 = Several days Trouble relaxin = Several days Being so restless that it is hard to sit still: 1 = Several days Becoming easily annoyed or irritable: 0 = Not at all Feeling afraid as if something awful might happen: 0 = Not at all Total ASHLEY-7 score (0-4 normal; 5-9 mild; 10-14 moderate; 15-21 severe): 5 Source: Developed by Oliva Bell Kurt Kroenke and colleagues, with an educational keegan from [employer]. ASHLEY-7 Assessment Billing ASHLEY-7 Assessment Tool: ASHLEY-7 Assessment 84615 Review of Systems Const All systems reviewed & are unremarkable except as noted in HPI and below ENT Reports no additional complaints Card Reports no additional complaints Resp Reports no additional complaints GI Reports no additional complaints Reports no additional complaints Physical exam (Primary Care) Vital Signs: Last Vital Signs Pulse 87 11/12/24 11:22 BP 114/80 11/12/24 11:22 Pulse Ox 97 11/12/24 11:22 Oxygen Delivery Method Room Air 11/12/24 11:22 BMI result Body Mass Index 47.4 Tobacco/Smoking Status: Tobacco use Status Tobacco use date assessed 11/12/24 11/12/24 11:28 Patient Tobacco Use Status Former Tobacco user 11/12/24 11:28 e-Cigarette/Vaping Use Never Used 11/12/24 11:28 PHQ-9: PHQ-9 Score PHQ-9: Total score 6 11/12/24 11:50 Depression Screening Interpretation: Negative Thrive Assessment: Date of Thrive Assessment Date Thrive assessed 11/12/24 11/12/24 11:50 Const General: no acute distress HENMT Head: Yes normal to inspection Eyes General: appearance normal, both eyes and all related structures Neck Other: Paraspinal tenderness muscle spasm in lower cervical region Neck: Yes supple Resp Effort & Inspection: normal respiratory effort Auscultation: clear to auscultation bilaterally Cardio Rhythm: regular rhythm Heart sounds: S1 normal heart sound present and S2 normal heart sound present GI Inspection: Yes normal to inspection Palpation (GI): Soft to palpation Percussion: Yes normal to percussion Auscultation: normal bowel sounds Back/Spine/Pelvis Thoracic/Lumbar Spine: paraspinal muscle tenderness Coding Level of Care Code Est Pt Level 3 (90369) Diagnoses Fall W19.XXXA Additional Codes ASHLEY-7 Assessment Billing - ASHLEY-7 Assessment Tool: ASHLEY-7 Assessment 25768 ([id number]) PHQ-9 - 95906 - PHQ-9 Billing: Yes ([id number]) Assessment & Plan Assessment & Plan (1) Fall: Code(s): W19.XXXA - Unspecified fall, initial encounter Category: Medical Plan: Supportive care discussed with the patient she declined physical therapy baclofen is prescribed in addition to ibuprofen Medications: New baclofen 10 mg PO BID 30 tabs 0RF
[2024-11-12 11:22] VITALS: BP 114/80; PULSE 87; O2SAT 97; BMI 47.4
== END 2024-11-12 12:28 | disposition home or self-care (01) ==
PROVIDERS: PCP Internal Medicine; Visit Provider Internal Medicine
DX: M25.572 Pain in left ankle and joints of left foot (principal); M54.2 Cervicalgia; W19.XXXA Unspecified fall, initial encounter

== ENCOUNTER → 2024-11-12 11:18 | Outpatient (BNVA) | payer OTHER, SELFPAY | PROVIDERS: PCP Internal Medicine; Visit Provider Internal Medicine | DX: M54.2 Cervicalgia (principal); M54.50 Low back pain, unspecified; M53.82 Other specified dorsopathies, cervical region; M53.86 Other specified dorsopathies, lumbar region; Z91.81 History of falling; M25.579 Pain in unspecified ankle and joints of unspecified foot | CPT/HCPCS: 96127; 99212 ==

== ENCOUNTER 2025-01-31 03:16 | Emergency (ER) | payer OTHER, SELFPAY ==
--- NOTE | ~2025-01-31 | XR_ITS ---
CLINICAL HISTORY: pain Exam: AP, lateral, and mortise views of the left ankle. Comparison: November 04, 2024. Findings: Bony alignment is anatomic. No acute fracture. Ankle mortise is intact. Mild lateral soft tissue swelling. Impression: No fracture. This document has been electronically signed by: Dami Wilburn MD on 01/31/2025 03:43:20
[2025-01-31 03:17] VITALS: BP 132/86; PULSE 83; RESP 20; TEMP 36.3; O2SAT 96; BMI 44.1
[2025-01-31 04:06] VITALS: BP 109/47; PULSE 81; RESP 16; TEMP 36.5; O2SAT 96
[2025-01-31] MEDS: Acetaminophen 325 MG TABLET 650 MG PO (04:47)
--- NOTE | 2025-01-31 05:58 | ED_ITS ---
HPI - Extremity Problem General Chief complaint: Extremity Problem Stated complaint: left ankle sprained? Time Seen by Provider: 01/31/25 05:52 Source: patient Mode of arrival: ambulatory Limitations: no limitations History of Present Illness ED Provider: Dr. Yun Esposito HPI Narrative: patient comes to the emergency room complaining of chronic left ankle pain. Patient states that she sprained her ankle back in October, it has been almost 3 months. 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 Patient states that she can walk but it hurts doing so. Patient denies any other injuries. Related Data Home Medications ?Medication ?Instructions ?Recorded ?Confirmed gabapentin 600 mg tablet 600 mg PO TID 10/16/20 11/12/24 buspirone 30 mg tablet 1 tab PO BID 11/04/20 11/12/24 escitalopram oxalate 20 mg tablet 20 mg PO DAILY 10/30/24 11/12/24 eszopiclone 3 mg tablet 3 mg PO BEDTIME PRN 10/30/24 11/12/24 mirtazapine 7.5 mg tablet 7.5 mg PO BEDTIME 10/30/24 11/12/24 Previous Rx's ?Medication ?Instructions ?Recorded norethindrone (contraceptive) 0.35 0.35 mg PO DAILY #84 tabs 04/25/24 mg tablet omeprazole 20 mg capsule,delayed 20 mg PO DAILY #90 caps 05/17/24 release propranolol 40 mg tablet 60 mg (1.5 x 40 mg) PO BID #240 10/30/24 tabs baclofen 10 mg tablet 10 mg PO BID #30 tabs 12/31/24 tramadol 50 mg tablet 50 mg PO BID PRN pain #7 tabs 01/31/25 Allergies Allergy/AdvReac Type Severity Reaction Status Date / Time Penicillins [PENICILLINS] Allergy Severe Anaphylaxis Verified 01/31/25 03:21 amoxicillin [AMOXICILLIN] Allergy Intermediate HIVES Verified 01/31/25 03:21 ciprofloxacin [From CIPRO] Allergy Intermediate HIVES Verified 01/31/25 03:21 citalopram Allergy Intermediate sweating, Verified 01/31/25 03:21 panic attack diclofenac [DICLOFENAC] Allergy Intermediate HIVES, Verified 01/31/25 03:21 ITCHING, FLUSHED Sulfa (Sulfonamide Allergy Intermediate HIVES Verified 01/31/25 03:21 Antibiotics) [SULFA(SULFONAMIDE ANTIBIOTICS)] trazodone Allergy Mild increase Verified 01/31/25 03:21 appetite cyclobenzaprine Allergy Unknown unknown Verified 01/31/25 03:21 [From Flexeril] paroxetine [Paxil] AdvReac Intermediate stomach Verified 01/31/25 03:21 upset quetiapine [Seroquel] AdvReac Unknown Increased Verified 01/31/25 03:21 sweating and weight gain Review of Systems Review of Systems: Constitutional : No Weight loss, No Fever, No Chills, No Night Sweats, No Fa tigue, No Malaise ENT/Mouth : No Hearing loss, No Ear Pain, No Nasal Congestion, No Sinus Pain, No Hoarseness, No sore throat, No Rhinorrhea, No Swallowing Difficulty Eyes: No Eye Pain, No Swelling, No Redness, No Foreign Body, No Discharge, No Vision Changes Cardiovascular : No Chest Pain, No SOB, No Dyspnea on Exertion, No Orthopnea, No Edema, No Palpitations Respiratory : No Cough, No Sputum, No Wheezing, No Smoke Exposure, No Dyspnea Gastrointestinal : No Nausea, No Vomiting, No Diarrhea, No Constipation, No abdominal Pain, No Hematochezia, No Melena Genitourinary : no irregular bleeding, No Dysuria, No Urinary Frequency, No Hematuria, No Urinary Incontinence, No Urgency, No Flank Pain, No Urinary Flow Changes, No Hesitancy Musculoskeletal : Complaining of acute on chronic ankle pain No Myalgias, No Joint Swelling Skin : No Skin Lesions, No rash Neuro : No Weakness, No Numbness, No Paresthesias, No Loss of Consciousness, No Dizziness, No Headache Psych : No Anxiety/Panic, No Depression, No SI/HI/AH/VH, No Social Issues, Heme/Lymph: No Bruising, No Bleeding,No Lymphadenopathy Endocrine : No Polyuria, No Polydipsia, No Temperature Intolerance [facility] Past Medical History Medical History Elevated cholesterol HTN (hypertension) Hand injury Annual physical exam Back pain GERD (gastroesophageal reflux disease) Anxiety Rotator cuff tear Complete tear of left rotator cuff Surgical History Hx of cholecystectomy S/P right rotator cuff repair S/P left rotator cuff repair Family History Family History Mother No problems noted. Father Lung cancer Sister Mental health disorder Social History Social History Housing: House Alcohol intake: former Patient Tobacco Use Status: Former Tobacco user Cigarettes Per Day: 3 Smoked in Last 30 Days: No e-Cigarette/Vaping Use: Never Used Second Hand Smoke Exposure: No Use of substances other than those prescribed or required for medical reasons: No Advance Directives: No Advance Directives Information Provided: Yes service: No Current occupational status: unemployed Current occupation: Unemployed - Right Handed Cognitive needs: No Hearing needs: No Vision needs: No Physical Exam Vital Signs: Vital Signs: Last Vital Signs Temp 97.7 F 01/31/25 04:06 Pulse 81 01/31/25 04:06 Resp 16 01/31/25 04:06 BP 109/47 L 01/31/25 04:06 Pulse Ox 96 01/31/25 04:06 O2 Del Method Room Air 01/31/25 04:06 BMI result Body Mass Index 44.1 Const: Other: Appearance: Alert. Oriented X3. No acute distress. Eyes: Pupils equal, round and reactive to light. ENT: Pharynx normal. Neck: Normal inspection. Neck supple. No lymph nodes noted. No crepitus CVS: Normal heart rate and rhythm. Pulses normal. Normal S1 and S2 Respiratory: No respiratory distress. Breath sounds normal. No Wheezing. No rales Abdomen: Soft and nontender. No rigidity. No distention. Skin: Skin warm and dry. Normal skin color. Normal skin turgor. Extremities: No lower extremity edema. No Lacerations. No Rash. Left ankle able to flex and extend, no deformity, no ecchymosis or swelling Neuro: Oriented X 3. No motor deficit. No sensory deficit. Moving all extremities. No slurred speech. CN 2 through 12 grossly intact Psych: calm, cooperative, normal affect Medications Administered Discontinued Medications Generic Name Dose Route Start Last Admin Trade Name Freq PRN Reason Stop Dose Admin Acetaminophen 650 mg 01/31/25 04:45 01/31/25 04:47 Acetaminophen 325 Mg Tablet PO 01/31/25 04:46 650 mg ONCE ONE Administration Medical Decision Making Medical Decision Making MDM Narrative: x-ray of the ankle, no acute abnormality patient was given a dose of IM morphine. Patient is allergic to NSAIDs. patient should requesting a referral to see Dr. Cain Differential Diagnosis Differential Diagnoses: The differential diagnosis associated with the presentation includes ( ankle sprain, fracture, dislocation, contusion) Independent Interpretation I performed an independent interpretation of an: Plain X-Ray Radiology Impression Discussion of test interpretation with radiology: I have reviewed the radiologist's reading. Radiologist Impression: Bony alignment is anatomic. No acute fracture. Ankle mortise is intact. Mild lateral soft tissue swelling. Impression: No fracture. Discharge Plan Discharge Clinical Impression: Ankle sprain Patient Disposition: Home, Self-Care Instructions: Ankle Sprain (ED) Additional Instructions: Please follow-up with your primary care physician tomorrow. If you have any worsening or new symptoms, please return to the emergency room or call 911 Prescriptions: New tramadol 50 mg tablet 50 mg PO BID PRN (Reason: pain) Qty: 7 0RF No Action norethindrone (contraceptive) 0.35 mg tablet 0.35 mg PO DAILY Qty: 84 3RF omeprazole 20 mg capsule,delayed release(DR/EC) 20 mg PO DAILY Qty: 90 3RF baclofen 10 mg tablet 10 mg PO BID Qty: 30 0RF buspirone 30 mg tablet 1 tab PO BID gabapentin 600 mg tablet 600 mg PO TID eszopiclone 3 mg tablet 3 mg PO BEDTIME PRN mirtazapine 7.5 mg tablet 7.5 mg PO BEDTIME escitalopram oxalate 20 mg tablet 20 mg PO DAILY propranolol 40 mg tablet 60 mg PO BID Qty: 240 1RF Referrals: Dariel Cain MD [Physician] - 02/01/25 Print Language: Kiswahili
[2025-01-31] MEDS: Morphine Sulfate 2 MG/ML CARTRIDGE 1 MG IM (06:03)
[2025-01-31 06:12] VITALS: BP 116/71; PULSE 71; RESP 14; TEMP 36.4; O2SAT 95
[2025-01-31 06:13] VITALS: BP 116/71; PULSE 71; RESP 14; TEMP 36.4; O2SAT 95
== END 2025-01-31 06:15 | disposition home or self-care (01) ==
PROVIDERS: Emergency Provider Emergency Medicine; PCP Internal Medicine
DX: S93.402A Sprain of unspecified ligament of left ankle, initial encounter (principal); M25.572 Pain in left ankle and joints of left foot; X58.XXXA Exposure to other specified factors, initial encounter; Y93.9 Activity, unspecified; Y92.9 Unspecified place or not applicable; Y99.8 Other external cause status; Z87.891 Personal history of nicotine dependence
CPT/HCPCS: 73610; 96372; 99284; J2270

== ENCOUNTER → 2025-01-31 03:30 | Outpatient (BNV) | payer OTHER, SELFPAY | PROVIDERS: PCP Internal Medicine; Visit Provider Radiology Diagnostic Radiology | DX: M25.572 Pain in left ankle and joints of left foot (principal) | CPT/HCPCS: 73610 ==

== ENCOUNTER 2025-02-28 13:46 | Outpatient (AMB) | payer OTHER, SELFPAY ==
[2025-02-28 13:49] VITALS: BP 118/74; PULSE 86; TEMP 37.1; O2SAT 98; BMI 44.1
--- NOTE | 2025-02-28 13:49 | AM.OFFWIN_ITS ---
Intake Vital Signs 02/28/25 13:49 Height 5 ft 5 in Weight 265 lb BMI 44.1 BP 118/74 Blood Pressure Location Lt brachial Position Sitting Pulse 86 Pulse Source Pulse Oximeter Temp 98.8 F Temp Source Oral Pulse Oximetry (%) 98 Oxygen Delivery Method Room Air Intake Visit Reasons: EP-cough, phlegm, sore throat, chills, headaches Intake Note: pt is here for cough, chills, headache, patient states shes been coughing up colored phlem. Patient Tobacco Use Status: Former Tobacco user Allergies Penicillins [PENICILLINS] Allergy (Severe, Verified 02/28/25 13:50) Anaphylaxis amoxicillin [AMOXICILLIN] Allergy (Intermediate, Verified 02/28/25 13:50) HIVES ciprofloxacin [From CIPRO] Allergy (Intermediate, Verified 02/28/25 13:50) HIVES citalopram Allergy (Intermediate, Verified 02/28/25 13:50) sweating, panic attack diclofenac [DICLOFENAC] Allergy (Intermediate, Verified 02/28/25 13:50) HIVES, ITCHING, FLUSHED Sulfa (Sulfonamide Antibiotics) [SULFA(SULFONAMIDE ANTIBIOTICS)] Allergy (Intermediate, Verified 02/28/25 13:50) HIVES trazodone Allergy (Mild, Verified 02/28/25 13:50) increase appetite cyclobenzaprine [From Flexeril] Allergy (Unknown, Verified 02/28/25 13:50) unknown paroxetine [Paxil] Adverse Reaction (Intermediate, Verified 02/28/25 13:50) stomach upset quetiapine [Seroquel] Adverse Reaction (Unknown, Verified 02/28/25 13:50) Increased sweating and weight gain Do you need a note to return to daycare/school/sports/work: Yes HPI HPI Comments History of Present Illness Details 49 y/o female patient who presents to [facility] walk in clinic with c/o URI symptoms x 2 weeks. Pt reports Cough, chest tightness, Chills, headaches and Sore-throat. Reports fevers at home as high as 100.3F. [facility] Medical History (Updated 02/28/25 @ 14:02 by Arlette Graham NP) Acute respiratory disease Elevated cholesterol HTN (hypertension) Hand injury Annual physical exam Back pain GERD (gastroesophageal reflux disease) Anxiety Rotator cuff tear Complete tear of left rotator cuff Surgical History Hx of cholecystectomy S/P right rotator cuff repair S/P left rotator cuff repair Family History Mother No problems noted. Father Lung cancer Sister Mental health disorder Social History Housing: House Alcohol intake: former Patient Tobacco Use Status: Former Tobacco user Cigarettes Per Day: 3 e-Cigarette/Vaping Use: Never Used Second Hand Smoke Exposure: No service: No Current occupational status: unemployed Current occupation: Unemployed - Right Handed Cognitive needs: No Hearing needs: No Vision needs: No Review of Systems Const All systems reviewed & are unremarkable except as noted in HPI and below Physical Exam Vital Signs: Last Vital Signs Temp 98.8 F 02/28/25 13:49 Pulse 86 02/28/25 13:49 BP 118/74 02/28/25 13:49 Pulse Ox 98 02/28/25 13:49 Oxygen Delivery Method Room Air 02/28/25 13:49 BMI result Body Mass Index 44.1 Const General: no acute distress Nutritional Appearance: obese Orientation/consciousness: patient oriented x3 HEENT Head: Yes normocephalic Ears: external ears normal and TM abnormal with fluid behind the TM General nose exam: Nasal discharge present Face and sinus: Yes sinuses nontender Mouth: moist mucous membranes Throat: Yes uvula midline Resp Effort & Inspection: normal respiratory effort and able to speak in complete sentences Auscultation: clear to auscultation bilaterally, no crackles, no rales, no rhonchi and no wheezes Cardio Heart sounds: S1 normal heart sound present and S2 normal heart sound present Neuro General: patient oriented x3 Assessment & Plan Assessment & Plan (1) Acute respiratory disease: Code(s): J06.9 - Acute upper respiratory infection, unspecified Plan: Acetaminophen for pain relief and fever relief. Ordered Z-pack Ordered SARs Rest and Hydrate well with warm fluids. Orders: Orders SARS-CoV2/FLU/RSV Today J06.9 - Acute upper respiratory infection, unspecified Medications: New acetaminophen 1,000 mg (2 x 500 mg) PO Q6H PRN 30 caps 0RF pain J06.9 - Acute upper respiratory infection, unspecified azithromycin 500 mg PO DAILY 3 tabs 0RF 3 days J06.9 - Acute upper respiratory infection, unspecified Coding Level of Care Code Est Pt Level 4 (42465) Diagnoses Acute respiratory disease J06.9 Time Spent (min) 20
--- OUTSIDE RECORDS SUMMARY | 2025-02-28 15:07 | XMS_ITS | Encounter Summary ---
Author Organization [facility] Address [address] [place] [address] Care Team Providers Care Sap Data Architect Name Role Phone Sherita Washburn MD Primary Care Provider Unavaila ble Reason for Visit * Reason Onset Date Comments refill request 07/10/2019 Encounter Details Date Type Department Care Team Description 07/10/2019 Refill Physiatry - [address] [address] Rajesh Muhammad DO refill request Social History Tobacco Use Types Packs/Day Years Used Date Smoking Tobacco: Some Days Cigarettes Started: 1996; Last attempted to quit: 12/12/2016 Smokeless Tobacco: Never Comments:1 cigarette once in awhile Alcohol Use Standard Drinks/Week Comments Yes 0.8 (1 standard drink = 0.6 oz p ure alcohol) q drink every 3 mos Sex Assigned at Date Recorded Not on file documented as of this encounter Miscellaneous Notes * Telephone Encounter - Sandee Chance M.A. - 07/16/2019 2:[address] Jb ALEX * Telephone Encounter - Sandee Chance M.A. - 07/16/2019 1:53 PM EDT I spoke with Pharmacist Elsa and she states that patient has lost her Tizanidine 4 times this year and has already used her override in November. I told Elsa not to replace script andto cancel her refills per Frankie Aden PA-C I spoke with Arlette and she is aware of this. * Telephone Encounter - Koffi Bhakta - 07/16/2019 1:38 PM EDT Elsa from Pharmacy called stating patient been losing her prescription about 4 times this year. Other prescriptions were from other providers. Pharmacy wants to inform provider about this.----ISAI * Telephone Encounter - Concha Sheffield - 07/16/2019 1:30 PM EDT I spoke to the patient. She states that she lost her RX for Seroquel, [place]izanadine and [place]. She picked up her last tizanadine RX on 07/12. Per the pharmacy they can requesta lost RX over ride so they will cover or the patient can pay out of pocket. The patient will contact the pharmacy to arrange with them. ISAI Matt. * Telephone Encounter - Koffi Bhakta - 07/16/2019 1:05 PM EDT Patient needs 90 for 2 weeks and 180 for a month. * Telephone Encounter - Concha Luna M.A. - 07/11/2019 12:13 PM EDT Rx sent to pharmacy * Telephone Encounter - Sandee Chance M.A. - 07/10/2019 10:32 AM EDT Last ov 11/16/ injection 01/12 Last refill 03/12/19 Next ov 08/16/19 * Telephone Encounter - Koffi Bhakta - 07/10/2019 10:20 AM EDT Patient needs partial refill for 90 tablets (because she last prescription once earlier in the year) and she also needs her usual 180 tablet refill. Please review and advise. All of the medications requested were on the CURRENT MEDS list Did you check the Pharmacy information above?: YES Patient wants: 90 -day supply Is this a mail order prescription request ? NO If the refill is from a FAXED refill request what is the RX # listed on the fax? N/A Patients current insurance carrier is: Payor: [employer] FFS / Plan: [employer] / Product Type: MEDICAID RISK documented in this encounter Plan of Treatment Not on file documented as of this encounter Visit Diagnoses Diagnosis Lumbar sprain, subsequent encounter Lumbar radiculitis Thoracic or lumbosacral neuritis or radiculitis, unspecified Lumbar paraspinal muscle spasm Other symptoms referable to back Chronic bilateral low back pain with left-sided sciatica documented in this encounter Care Teams Sap Data Architect Relationship Specialty Start Date End Date Sherita Washburn MD PCP - General Internal Medicine 01/30/18 documented as of this encounter
--- OUTSIDE RECORDS SUMMARY | 2025-02-28 15:07 | XMS_ITS | Encounter Summary ---
Author Organization [facility] Address [address] [place] [address] Care Team Providers Care Banquet Set Up Person Name Role Phone Lucía Kohler MD Primary Care Provider Sabi Natarajan MD Primary Care Provider Sherita Stubbs MD Primary Care Provider Unavaila ble Reason for Visit * Reason Comments E-prescribe Rx Request Encounter Details Date Type Department Care Team Description 07/22/2014 Refill Adult Medicine [address] [id number] Lucía Kohler MD [address] [place] [address] [id number] E-prescribe Rx Request Social History Tobacco Use Types Packs/Day Years Used Date Smoking Tobacco: Passive Smo ke Exposure - Never Smoker Cigarettes Quit: Smokeless Tobacco: Never Comments:1-2 on weekends Alcohol Use Standard Drinks/Week Comments Yes 0.8 (1 standard drink = 0.6 oz p ure alcohol) socially Sex Assigned at Date Recorded Not on file documented as of this encounter Miscellaneous Notes * Telephone Encounter - Mona Eng - 07/22/2014 9:57 AM EDT Patient would like script to be: E-PRESCRIBED/FAXED TO PHARMACY WHEN WAS THE PATIENT'S LAST APPOINTMENT IN ADULT MEDICINE? 06/07/2014 WHEN WAS THE LAST TIME THE PATIENT SAW THEIR PCP? 05/30/2014 Does patient have an upcoming appointment? Yes 12/09/2014 (THE MEDICATION REQUESTED IS ON THE MED LIST ABOVE) All of the medications requested were on the CURRENT MEDS list Did you check the Pharmacy information above?: YES Patient wants: 30 -day supply Is this a mail order prescription request ? NO Patients current insurance carrier is: Payor: [employer] FFS / Plan: [employer] PLUS PLAN / Product Type: MEDICAID RISK documented in this encounter Plan of Treatment Not on file documented as of this encounter Visit Diagnoses Not on filedocumented in this encounter Care Teams Banquet Set Up Person Relationship Specialty Start Date End Date Lucía Kohler MD [address] [place] [address] 97129 PCP - General 03/28/00 09/26/17 Sabi Natarajan MD [address] [place] [address] 82363 PCP - General Internal Medicine 09/27/17 01/29/18 Sherita Washburn MD [address] [place] [address] 85481 PCP - General Internal Medicine 01/30/18 documented as of this encounter
--- OUTSIDE RECORDS SUMMARY | 2025-02-28 15:07 | XMS_ITS | Encounter Summary ---
Author Organization [facility] Address [address] [place] [address] Care Team Providers Care Suture Gauger Name Role Phone Lucía Kohler MD Primary Care Provider [phone] Sabi Natarajan MD Primary Care Provider Sherita Stubbs MD Primary Care Provider Ellie moreno Encounter Details Date Type Department Care Team Description 08/09/2013 TRANSITIONAL CARE NURSE/[facility] Report Medical Records [address] [place] [address] 28440 Abstract, Provider Social History Tobacco Use Types Packs/Day Years Used Date Smoking Tobacco: Passive Smo ke Exposure - Never Smoker Cigarettes Quit: Smokeless Tobacco: Never Comments:1-2 on weekends Alcohol Use Standard Drinks/Week Comments Yes 0 (1 standard drink = 0.6 oz pur e alcohol) socially Sex Assigned at Date Recorded Not on file documented as of this encounter Plan of Treatment Not on file documented as of this encounter Visit Diagnoses Not on filedocumented in this encounter Care Teams Suture Gauger Relationship Specialty Start Date End Date Lucía Kohler MD [address] [place] [address] 12206 PCP - General 03/28/00 09/26/17 Sabi Natarajan MD [address] [place] [address] 98377 PCP - General Internal Medicine 09/27/17 01/29/18 Sherita Washburn MD [address] [place] [address] 63076 PCP - General Internal Medicine 01/30/18 documented as of this encounter
--- OUTSIDE RECORDS SUMMARY | 2025-02-28 15:07 | XMS_ITS | Encounter Summary ---
Author Organization [facility] Address [address] [place] [address] Care Team Providers Care Lug Loader Name Role Phone Lucía Kohler MD Primary Care Provider [phone] Sabi Natarajan MD Primary Care Provider Sherita Stubbs MD Primary Care Provider Ellie moreno Encounter Details Date Type Department Care Team Description 03/22/2001 Telephone Adult Medicine [address] [address] Cyril Millan PA-C Social History Tobacco Use Types Packs/Day Years Used Date Smoking Tobacco: Never Assessed Sex Assigned at Date Recorded Not on file documented as of this encounter Plan of Treatment Not on file documented as of this encounter Visit Diagnoses Not on filedocumented in this encounter Care Teams Lug Loader Relationship Specialty Start Date End Date Lucía Kohler MD [address] [place] [address] 28030 PCP - General 03/28/00 09/26/17 Sabi Natarajan MD [address] [place] [address] 58461 PCP - General Internal Medicine 09/27/17 01/29/18 Sherita Washburn MD [address] [place] [address] 71561 PCP - General Internal Medicine 01/30/18 documented as of this encounter
--- OUTSIDE RECORDS SUMMARY | 2025-02-28 15:07 | XMS_ITS | Encounter Summary ---
Author Organization [facility] Address [address] [place] [address] Care Team Providers Care Bariatric Physician Name Role Phone Sherita Washburn MD Primary Care Provider Ellie moreno Encounter Details Date Type Department Care Team Description 07/27/2019 [facility] Medical Records [address] [place] [address] Abstract, Provider Social History Tobacco Use Types [...] on filedocumented in this encounter Care Teams Bariatric Physician Relationship Specialty Start Date End Date Sherita Washburn MD PCP - General Internal Medicine 01/30/18 documented as of this encounter
--- OUTSIDE RECORDS SUMMARY | 2025-02-28 15:07 | XMS_ITS | Encounter Summary ---
Author Organization [facility] Address [address] [place] [address] Care Team Providers Care Economics Instructor Name Role Phone Lucía Kohler MD Primary Care Provider [phone] Sabi Natarajan MD Primary Care Provider Sherita Stubbs MD Primary Care Provider Ellie moreno Encounter Details Date Type Department Care Team Description 08/24/2013 Controlled Substance Plan Medical Records [address] [place] [address] 79108 Abstract, Provider Social History Tobacco Use Types [...] on filedocumented in this encounter Care Teams Economics Instructor Relationship Specialty Start Date End Date Lucía Kohler MD [address] [place] [address] 24619 PCP - General 03/28/00 09/26/17 Sabi Natarajan MD [address] [place] [address] 50420 PCP - General Internal Medicine 09/27/17 01/29/18 Sherita Washburn MD [address] [place] [address] 03303 PCP - General Internal Medicine 01/30/18 documented as of this encounter
--- OUTSIDE RECORDS SUMMARY | 2025-02-28 15:07 | XMS_ITS | Encounter Summary ---
Author Organization [facility] Address [address] [place] [address] Care Team Providers Care Glazier Metal Furniture Name Role Phone Lucía Kohler MD Primary Care Provider [phone] Sabi Natarajan MD Primary Care Provider Sherita Stubbs MD Primary Care Provider Unavaila ble Reason for Visit * Reason Comments E-prescribe Rx Request Encounter Details Date Type Department Care Team Description 12/08/2015 Refill Adult Medicine [address] [id number] Cyril Millan PA-C E-prescribe Rx Request Social History Tobacco Use Types Packs/Day Years Used Date Smoking Tobacco: Former Cigarettes Q uit: 11/27/2015 Smokeless Tobacco: Never Comments:1-2 on weekends Alcohol Use Standard Drinks/Week Comments Yes 0.8 (1 standard drink = 0.6 oz p ure alcohol) socially Sex Assigned at Date Recorded Not on file documented as of this encounter Miscellaneous Notes * Telephone Encounter - Gayathri Lazo - 12/08/2015 4:58 PM EST Patient would like script to be: E-PRESCRIBED/FAXED TO PHARMACY WHEN WAS THE PATIENT'S LAST APPOINTMENT IN ADULT MEDICINE? 11-02-15 WHEN WAS THE LAST TIME THE PATIENT SAW THEIR PCP? 06-09-15 Does patient have an upcoming appointment? Yes 02-05-16 (THE MEDICATION REQUESTED IS ON THE MED LIST ABOVE) One or some of the medications requested were on the HISTORICAL MED list Did you check the Pharmacy information above?: YES Patient wants: 30 -day supply Is this a mail order prescription request ? NO Patients current insurance carrier is: Payor: [employer] FFS / Plan: [employer] PLUS PLAN / Product Type: MEDICAID RISK documented in this encounter Plan of Treatment Not on file documented as of this encounter Visit Diagnoses Not on filedocumented in this encounter Care Teams Glazier Metal Furniture Relationship Specialty Start Date End Date Lucía Kohler MD [address] [place], [place] [phone] PCP - General 03/28/00 09/26/17 Sabi Natarajan MD [address] [place] [address] 17939 PCP - General Internal Medicine 09/27/17 01/29/18 hSerita Washburn MD [address] [place] [address] 25767 PCP - General Internal Medicine 01/30/18 documented as of this encounter
--- OUTSIDE RECORDS SUMMARY | 2025-02-28 15:07 | XMS_ITS | Encounter Summary ---
Author Organization [facility] Address [address] [place] [address] Care Team Providers Care Offset Press Operator Name Role Phone Lucía Kohler MD Primary Care Provider [phone] Sabi Natarajan MD Primary Care Provider Sherita Stubbs MD Primary Care Provider Unavaila ble Reason for Visit * Reason Onset Date Comments Back Pain 04/28/2017 Encounter Details Date Type Department Care Team Description 04/28/2017 Telephone Physiatry - [address] [phone] Rajesh Muhammad DO Back Pain Social History Tobacco Use Types Packs/Day Years Used Date Smoking Tobacco: Former Cigarettes Q uit: 12/12/2016 Smokeless Tobacco: Never Comments:1 cigarette once in awhile Alcohol Use Standard Drinks/Week Comments Yes 0.8 (1 standard drink = 0.6 oz p ure alcohol) socially Sex Assigned at Date Recorded Not on file documented as of this encounter Miscellaneous Notes * Telephone Encounter - Sandee Chnace M.A. 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 Patient states it felt like it was slipping down her back. She states it has not happened again. Patient did not mention being in more pain since the injection. I asked patient if this made her back feel any different and she said it felt like she exercised to much. I advised patient to use some ice on it and rest the area. * Telephone Encounter - Breanna Abreu - 04/28/2017 9:27 AM EDT Patient calling stating she did have injection on 04/20/17 (left L5 TFE) and has had increased pain since then. Patient states it feels like something is slipping in her lower back. Patient has follow up with Dr. Muhammad on 05/27/17 but would like to speak with nurse. Please review. documented in this encounter Plan of Treatment Not on file documented as of this encounter Visit Diagnoses Not on filedocumented in this encounter Care Teams Offset Press Operator Relationship Specialty Start Date End Date Lucía Kohler MD [address] [place] [address] 79837 PCP - General 03/28/00 09/26/17 Sabi Natarajan MD [address] [place] [address] 93134 PCP - General Internal Medicine 09/27/17 01/29/18 Sherita Washburn MD [address] [place] [address] 49579 PCP - General Internal Medicine 01/30/18 documented as of this encounter
--- OUTSIDE RECORDS SUMMARY | 2025-02-28 15:07 | XMS_ITS | Encounter Summary ---
Author Organization [facility] Address [address] [place] [address] Care Team Providers Care Cooler Deliverer Name Role Phone Lucía Kohler MD Primary Care Provider [phone] Sabi Natarajan MD Primary Care Provider Sherita Stubbs MD Primary Care Provider Ellie moreno Encounter Details Date Type Department Care Team Description 06/01/2013 Controlled Substance Plan Medical Records [address] [place] [address] 28230 Abstract, Provider Social History Tobacco Use Types [...] on filedocumented in this encounter Care Teams Cooler Deliverer Relationship Specialty Start Date End Date Lucía Kohler MD [address] [place] [address] 91476 PCP - General 03/28/00 09/26/17 Sabi Natarajan MD [address] [place] [address] 96455 PCP - General Internal Medicine 09/27/17 01/29/18 Sherita Washburn MD [address] [place] [address] 97395 PCP - General Internal Medicine 01/30/18 documented as of this encounter
--- OUTSIDE RECORDS SUMMARY | 2025-02-28 15:07 | XMS_ITS | Encounter Summary ---
Author Organization [facility] Address [address] [place] [address] Care Team Providers Care Chemical Compounder Helper Name Role Phone Lucía Kohler MD Primary Care Provider [phone] Sabi Natarajan MD Primary Care Provider Sherita Stubbs MD Primary Care Provider Unavaila ble Reason for Visit * Reason Onset Date Comments medication problems 10/06/2016 medication problems 10/09/2016 Encounter Details Date Type Department Care Team Description 10/06/2016 Telephone Adult Medicine [address] [phone] Lucía Kohler MD [address] [place] [address] [phone] medication problems; medication problems Social History Tobacco Use Types Packs/Day Years Used Date Smoking Tobacco: Some Days Cigarettes Last attempted to quit: 11/27/2015 Smokeless Tobacco: Never Comments:1 cigarette once in awhile Alcohol Use Standard Drinks/Week Comments Yes 0.8 (1 standard drink = 0.6 oz p ure alcohol) socially Sex Assigned at Date Recorded Not on file documented as of this encounter Miscellaneous Notes * Telephone Encounter - Rolanda Nguyen L.P.N. - 10/09/2016 9:31 AM EST Spoke with pt. On 10/08/16 Cyril Millan faxed a script for tizanidine 6 mg (1) capsule three times daily. Per pharmacy, it needs prior auth. Pt had a script on file for tizanidine 4 mg so that was filled. Pt calls today worried that she did the wrong thing . States she was told a prior auth could take 7-10 days. The pharmacist recommended she take the 4 mg for now so she'd have something if she needs it. (Sig is 1 capsule every 8 hours as needed. Pt states Cyril allows her to take 2 capsules, if needed.) Advised I will let Cyril know what happened. I sent a separate message for the 6 mg tizanidine to the prior [facility] pool for Tuesday. FYI only to Cyril for Tuesday. * Telephone Encounter - Soraya Randall - 10/09/2016 8:36 AM EST Patient had a script on hold at the pharmacy and she had it filled. Want's to know if this is all right. * Telephone Encounter - Cyril Millan PA-C - 10/08/2016 5:06 PM EST Discussed back pain and spasm with the patient today. Stop tizanidine and other muscle relaxants. We will try tizanidine 6 mg capsules 1 by mouth 3 times a day as needed for muscle spasm. Cautioned regarding sedative side effects. Sent to patient's pharmacy and she is aware. Her recent lab work is reviewed with her today. LDL cholesterol is 188 and she needs to bring this down closer to 100. She wishes to try weight loss and diet control and we'll recheck in 3 months. GAIL Richard * Telephone Encounter - Quynh Tam - 10/08/2016 4:56 PM EST Patient calling back. * Telephone Encounter - Regine Hernandez - 10/08/2016 1:19 PM EST Patient is calling back she would like a call back FRED. * Telephone Encounter - Ioana Collier - 10/08/2016 10:09 AM EST Patient is looking to speak with Radha Millan. Please have Cyril call patient [phone]. Patient needsa new script for tizanidine (ZANAFLEX) 4 MG tablet. Patient has increased dosage due to lower back pain. Patient is requesting a call back from someone today. * Telephone Encounter - Sharon Gaming M.A. - 10/06/2016 1:50 PM EST Please advise * Telephone Encounter - Dyana Burnham - 10/06/2016 1:04 PM EST What is the name of the medication patient is having a problem with?: methocarbamol (ROBAXIN) 750 MG tablet What is the problem?: Patient said the medication isn't doing anything for her and that she has stopped taking it. She would like to continue to just take her tizanidine (ZANAFLEX) 4 MG tablet. Is the patient calling about the problem? YES If the patient is not the caller who is? N/a Is this a NEW medication?: YES How long has the patient been taking this medication? 10/01/16 Who prescribed this medication for the patient? Cyril Millan Who is patients PCP?: Lucía Kohler Payor: [facility] FFS / Plan: FFS HMO $0 [place] [id number] / Product Type: MEDICAID RISK documented in this encounter Plan of Treatment Not on file documented as of this encounter Visit Diagnoses Diagnosis Acute midline low back pain without sciatica- Primary documented in this encounter Care Teams Chemical Compounder Helper Relationship Specialty Start Date End Date Lucía Kohler MD [address] [place] [address] 63463 PCP - General 03/28/00 09/26/17 Sabi Natarajan MD [address] [place] [address] 99201 PCP - General Internal Medicine 09/27/17 01/29/18 Sherita Washburn MD [facility] [place] [address] PCP - General Internal Medicine 01/30/18 documented as of this encounter
--- OUTSIDE RECORDS SUMMARY | 2025-02-28 15:07 | XMS_ITS | Encounter Summary ---
Author Organization [facility] Address [address] [place] [address] Care Team Providers Care Express Clerk Name Role Phone Lucía Kohler MD Primary Care Provider [phone] Sabi Natarajan MD Primary Care Provider Sherita Stubbs MD Primary Care Provider Ellie moreno Encounter Details Date Type Department Care Team Description 09/08/2017 Flight Dynamicist Report Medical Records [address] [place] [address] Cy Guido, PA-C [address] [place] [address] 94492 Social History Tobacco Use Types Packs/Day Years [...] on filedocumented in this encounter Care Teams Express Clerk Relationship Specialty Start Date End Date Lucía Kohler MD [address] [place] [address] 05345 PCP - General 03/28/00 09/26/17 Sabi Natarajan MD [address] [place] [address] 86744 PCP - General Internal Medicine 09/27/17 01/29/18 Sherita Washburn MD [address] [place] [address] 83115 PCP - General Internal Medicine 01/30/18 documented as of this encounter
--- OUTSIDE RECORDS SUMMARY | 2025-02-28 15:07 | XMS_ITS | Encounter Summary ---
Author Organization [facility] Address [address] [place] [address] Care Team Providers Care Data Integration Developer Name Role Phone Lucía Kohler MD Primary Care Provider [phone] Sabi Natarajan MD Primary Care Provider Sherita Stubbs MD Primary Care Provider Unavaila ble Reason for Visit * Reason Onset Date Comments APPOINTMENT 02/04/2017 Encounter Details Date Type Department Care Team Description 02/04/2017 Telephone Gastroenterology - [address] [phone] Claude Delgadillo MD APPOINTMENT Social History Tobacco Use Types Packs/Day Years Used Date Smoking Tobacco: Former Cigarettes Q uit: 12/12/2016 Smokeless Tobacco: Never Comments:1 cigarette once in awhile Alcohol Use Standard Drinks/Week Comments Yes 0.8 (1 standard drink = 0.6 oz p ure alcohol) socially Sex Assigned at Date Recorded Not on file documented as of this encounter Miscellaneous Notes * Telephone Encounter - Leny Carrion - 02/04/2017 8:58 AM EST Message left for patient to call the office to schedule a follow up appointment with dr delgadillo. documented in this encounter Plan of Treatment Not on file documented as of this encounter Visit Diagnoses Not on filedocumented in this encounter Care Teams Data Integration Developer Relationship Specialty Start Date End Date Lucía Kohler MD [address] [place] [address]20 PCP - General 03/28/00 09/26/17 Sabi Natarajan MD [address] [place] [address] PCP - General Internal Medicine 09/27/17 01/29/18 Sherita Washburn MD [address] [place] [address] 77736 PCP - General Internal Medicine 01/30/18 documented as of this encounter
--- OUTSIDE RECORDS SUMMARY | 2025-02-28 15:07 | XMS_ITS | Encounter Summary ---
Author Organization [facility] Address [address] [place] [address] Care Team Providers Care Music Director Name Role Phone Sabi Natarajan MD Primary Care Provider Sherita Stubbs MD Primary Care Provider Ellie moreno Encounter Details Date Type Department Care Team Description 09/28/2017 Transfer Records Medical Records [address] [place] [address] Abstract, Provider Social History Tobacco Use Types Packs/Day Years Used Date Smoking Tobacco: Former Cigarettes 0 1996 - 12/12/2016 Smokeless Tobacco: Never Comments:1 cigarette once in awhile Alcohol Use Standard Drinks/Week Comments Yes 0.8 (1 standard drink = 0.6 oz p ure alcohol) q drink every 3 mos Sex Assigned at Date Recorded Not on file documented as of this encounter Nursing Notes * Malgorzata Blackman - 09/28/2017 3:00 PM EDT Transfer records received from [facility] sent to Sharon Cowart RN ski patrol officer. documented in this encounter Plan of Treatment Not on file documented as of this encounter Visit Diagnoses Not on filedocumented in this encounter Care Teams Music Director Relationship Specialty Start Date End Date Sabi Natarajan MD PCP - General Internal Medicine 09/27/17 01/29/18 Sherita Washburn MD PCP - General Internal Medicine 01/30/18 documented as of this encounter
--- OUTSIDE RECORDS SUMMARY | 2025-02-28 15:07 | XMS_ITS | Encounter Summary ---
Author Organization [facility] Address [address] [place] [address] Care Team Providers Care Sea Kayaking Guide Name Role Phone Sherita Washburn MD Primary Care Provider Unavaila ble Reason for Visit * Reason Onset Date Comments Gynecological Problem 05/01/2018 Encounter Details Date Type Department Care Team Description 05/01/2018 Telephone [facility] [address] [place], [place] [phone] Anisa Sweet CNM Gynecological Problem Social History Tobacco Use Types Packs/Day Years [...] on filedocumented in this encounter Care Teams Sea Kayaking Guide Relationship Specialty Start Date End Date Sherita Washburn MD PCP - General Internal Medicine 01/30/18 documented as of this encounter
--- OUTSIDE RECORDS SUMMARY | 2025-02-28 15:07 | XMS_ITS | Encounter Summary ---
Author Organization [facility] Address [address] [place] [address] Care Team Providers Care Physician Coding Specialist Name Role Phone Lucía Kohler MD Primary Care Provider [phone] Sabi Natarajan MD Primary Care Provider Sherita Stubbs MD Primary Care Provider Ellie moreno Encounter Details Date Type Department Care Team Description 08/03/2017 Punch Out Crew Member Report Medical Records [address] [place] [address] Cy Guido, PA-C [address] [place] [address] 17070 Social History Tobacco Use Types Packs/Day Years [...] on filedocumented in this encounter Care Teams Physician Coding Specialist Relationship Specialty Start Date End Date Lucía Kohler MD [address] [place] [address] 89361 PCP - General 03/28/00 09/26/17 Sabi Natarajan MD [address] [place] [address] 38862 PCP - General Internal Medicine 09/27/17 01/29/18 Sherita Washburn MD [address] [place] [address] 63389 PCP - General Internal Medicine 01/30/18 documented as of this encounter
--- OUTSIDE RECORDS SUMMARY | 2025-02-28 15:07 | XMS_ITS | Encounter Summary ---
Author Organization [facility] Address [address] [place] [address] Care Team Providers Care School Traffic Guard Name Role Phone Sherita Washburn MD Primary Care Provider Ellie moreno Encounter Details Date Type Department Care Team Description 04/04/2018 [facility] Medical Records [address] [place] [address]269 Abstract, Provider Social History Tobacco Use Types [...] on filedocumented in this encounter Care Teams School Traffic Guard Relationship Specialty Start Date End Date Sherita Washburn MD PCP - General Internal Medicine 01/30/18 documented as of this encounter
--- OUTSIDE RECORDS SUMMARY | 2025-02-28 15:07 | XMS_ITS | Encounter Summary ---
Author Organization [facility] Address [address] [place] [address] Care Team Providers Care Data Support Analyst Name Role Phone Lucía Kohler MD Primary Care Provider [phone] Sabi Natarajan MD Primary Care Provider Sherita Stubbs MD Primary Care Provider Ellie moreno Encounter Details Date Type Department Care Team Description 09/22/2017 [facility] Medical Records [address] [place] [address] 65543 Abstract, Provider Social History Tobacco Use Types [...] filedocumented in this encounter Care Teams Data Support Analyst Relationship Specialty Start Date End Date Lucía Kohler MD [address] [place] [address] 18039 PCP - General 03/28/00 09/26/17 Sabi Natarajan MD [address] [place] [address] 32272 PCP - General Internal Medicine 09/27/17 01/29/18 Sherita Washburn MD [address] [place] [address] 77939 PCP - General Internal Medicine 01/30/18 documented as of this encounter
--- OUTSIDE RECORDS SUMMARY | 2025-02-28 15:07 | XMS_ITS | Encounter Summary ---
Author Organization [facility] Address [address] [place] [address] Care Team Providers Care Ar Manager Name Role Phone Lucía Kohler MD Primary Care Provider [phone] Sabi Natarajan MD Primary Care Provider Sherita Stubbs MD Primary Care Provider Unavaila ble Reason for Visit * Reason Comments E-prescribe Rx Request Encounter Details Date Type Department Care Team Description 10/22/2015 Refill OBGYN - [place] [address] [place] [address] [phone] [place] Cohen MD E-prescribe Rx Request Social History Tobacco Use Types Packs/Day Years Used Date Smoking Tobacco: Former Cigarettes Q uit: 11/28/2010 Smokeless Tobacco: Never Comments:1-2 on weekends Alcohol Use Standard Drinks/Week Comments Yes 0.8 (1 standard drink = 0.6 oz p ure alcohol) socially Sex Assigned at Date Recorded Not on file documented as of this encounter Miscellaneous Notes * Telephone Encounter - Deana Brooke - 10/28/2015 4:12 PM EST Scheduled in [place] with dr diaz per patient * Telephone Encounter - Deana Brooke - 10/28/2015 3:57 PM EST Left message to schedule ag documented in this encounter Plan of Treatment Not on file documented as of this encounter Visit Diagnoses Not on filedocumented in this encounter Care Teams Ar Manager Relationship Specialty Start Date End Date Lucía Kohler MD [address] [place] [address] 25687 PCP - General 03/28/00 09/26/17 Sabi Natarajan MD [address] [place] [address] 11816 PCP - General Internal Medicine 09/27/17 01/29/18 Sherita Washburn MD [address] [place] [address] 51861 PCP - General Internal Medicine 01/30/18 documented as of this encounter
--- OUTSIDE RECORDS SUMMARY | 2025-02-28 15:07 | XMS_ITS | Encounter Summary ---
Author Organization [facility] Address [address] [place] [address] Care Team Providers Care Fiscal Services Director Name Role Phone Lucía Kohler MD Primary Care Provider [phone] Sabi Natarajan MD Primary Care Provider Sherita Stubbs MD Primary Care Provider Ellie moreno Encounter Details Date Type Department Care Team Description 07/21/2017 Systems Software Manager Report Medical Records [address] [place] [address] Cy Guido, PA-C [address] [place] [address] 78342 Social History Tobacco Use Types Packs/Day Years [...] on filedocumented in this encounter Care Teams Fiscal Services Director Relationship Specialty Start Date End Date Lucía Kohler MD [address] [place] [address] 35220 PCP - General 03/28/00 09/26/17 Sabi Natarajan MD [address] [place] [address] 53694 PCP - General Internal Medicine 09/27/17 01/29/18 Sherita Washburn MD [address] [place] [address] 64198 PCP - General Internal Medicine 01/30/18 documented as of this encounter
--- OUTSIDE RECORDS SUMMARY | 2025-02-28 15:07 | XMS_ITS | Encounter Summary ---
Author Organization [facility] Address [address] [place] [address] Care Team Providers Care Bag Bailer Name Role Phone Lucía Kohler MD Primary Care Provider [phone] Sabi Natarajan MD Primary Care Provider Sherita Stubbs MD Primary Care Provider Ellie moreno Encounter Details Date Type Department Care Team Description 05/25/2012 Release of Information Medical Records [address] [place] [address] 740[address] Abstract, Provider Social History Tobacco Use Types Packs/Day Years Used Date Smoking Tobacco: Passive Smo ke Exposure - Never Smoker Cigarettes Quit: Smokeless Tobacco: Never Comments:social Alcohol Use Standard Drinks/Week Comments Yes 0 (1 standard drink = 0.6 oz pur e alcohol) socially Sex Assigned at Date Recorded Not on file documented as of this encounter Plan of Treatment Not on file documented as of this encounter Visit Diagnoses Not on filedocumented in this encounter Care Teams Bag Bailer Relationship Specialty Start Date End Date Lucía Kohler MD [address] [place] [address] 59934 PCP - General 03/28/00 09/26/17 Sabi Natarajan MD [address] [place] [address] 30852 PCP - General Internal Medicine 09/27/17 01/29/18 Sherita Washburn MD [address] [place] [address] 45086 PCP - General Internal Medicine 01/30/18 documented as of this encounter
--- OUTSIDE RECORDS SUMMARY | 2025-02-28 15:07 | XMS_ITS | Encounter Summary ---
Author Organization [facility] Address [address] [place] [address] Care Team Providers Care Animal Ecologist Name Role Phone Lucía Kohler MD Primary Care Provider [phone] Sabi Natarajan MD Primary Care Provider Sherita Stubbs MD Primary Care Provider Ellie moreno Encounter Details Date Type Department Care Team Description 10/15/2015 TEACHER OF THE HANDICAPPED/[facility] Report Medical Records [address] [place] [address] 19718 Abstract, Provider Social History Tobacco Use Types [...] on filedocumented in this encounter Care Teams Animal Ecologist Relationship Specialty Start Date End Date Lucía Kohler MD [address] [place] [address] 76909 PCP - General 03/28/00 09/26/17 Sabi Natarajan MD [address] [place] [address] 58939 PCP - General Internal Medicine 09/27/17 01/29/18 Sherita Washburn MD [address] [place] [address] 79028 PCP - General Internal Medicine 01/30/18 documented as of this encounter
--- OUTSIDE RECORDS SUMMARY | 2025-02-28 15:07 | XMS_ITS | Encounter Summary ---
Author Organization [facility] Address [address] [place] [address] Care Team Providers Care Stemming Machine Operator Name Role Phone Lucía Kohler MD Primary Care Provider [phone] Sabi Natarajan MD Primary Care Provider Sherita Stubbs MD Primary Care Provider Ellie moreno Encounter Details Date Type Department Care Team Description 07/12/2017 Telephone Medicine/Pediatrics - [address] [phone] Lucía Kohler MD [address] [place] [address] [phone] Social History Tobacco Use Types Packs/Day Years Used Date Smoking Tobacco: Former Cigarettes Q uit: 12/12/2016 Smokeless Tobacco: Never Comments:1 cigarette once in awhile Alcohol Use Standard Drinks/Week Comments Yes 0.8 (1 standard drink = 0.6 oz p ure alcohol) socially Sex Assigned at Date Recorded Not on file documented as of this encounter Miscellaneous Notes * Telephone Encounter - Breanna Thornton - 07/12/2017 10:57 AM EDT documented in this encounter Plan of Treatment Not on file documented as of this encounter Visit Diagnoses Not on filedocumented in this encounter Care Teams Stemming Machine Operator Relationship Specialty Start Date End Date Lucía Kohler MD [address] [place] [address] [phone] PCP - General 03/28/00 09/26/17 Sabi Natarajan MD [address] [place] [address] 24844 PCP - General Internal Medicine 09/27/17 01/29/18 Sherita Washburn MD [address] [facility] [place] [address] PCP - General Internal Medicine 01/30/18 documented as of this encounter
--- OUTSIDE RECORDS SUMMARY | 2025-02-28 15:07 | XMS_ITS | Encounter Summary ---
Author Organization [facility] Address [address] [place] [address] Care Team Providers Care Preschool Assistant Director Name Role Phone Lucía Kohler MD Primary Care Provider [phone] Sabi Natarajan MD Primary Care Provider Sherita Stubbs MD Primary Care Provider Ellie moreno Encounter Details Date Type Department Care Team Description 05/24/2017 [facility] Medical Records [address] [place] [address] 52710 Abstract, Provider Social History Tobacco Use Types [...] on filedocumented in this encounter Care Teams Preschool Assistant Director Relationship Specialty Start Date End Date Lucía Kohler MD [address] [place] [address] 9[address] PCP - General 03/28/00 09/26/17 Sabi Natarajan MD [address] [place] [address] 42002 PCP - General Internal Medicine 09/27/17 01/29/18 Sherita Washburn MD [address] [place] [address] 12829 PCP - General Internal Medicine 01/30/18 documented as of this encounter
--- OUTSIDE RECORDS SUMMARY | 2025-02-28 15:07 | XMS_ITS | Encounter Summary ---
Author Organization [facility] Address [address] [place] [address] Care Team Providers Care Shirt Operator Name Role Phone Lucía Kohler MD Primary Care Provider [phone] Sabi Natarajan MD Primary Care Provider Sherita Stubbs MD Primary Care Provider Ellie moreno Encounter Details Date Type Department Care Team Description 08/05/2016 [facility] Medical Records [address] [place] [address] 21669 Abstract, Provider Social History Tobacco Use Types [...] on filedocumented in this encounter Care Teams Shirt Operator Relationship Specialty Start Date End Date Lucía Kohler MD [address] [place] [address] 39583 PCP - General 03/28/00 09/26/17 Sabi Natarajan MD [address] [place] [address] 75592 PCP - General Internal Medicine 09/27/17 01/29/18 Sherita Washburn MD [address] [place] [address] 43226 PCP - General Internal Medicine 01/30/18 documented as of this encounter
--- OUTSIDE RECORDS SUMMARY | 2025-02-28 15:07 | XMS_ITS | Encounter Summary ---
Author Organization [facility] Address [address] [place] [address] Care Team Providers Care Water Team Leader Name Role Phone Lucía Kohler MD Primary Care Provider [phone] Sabi Natarajan MD Primary Care Provider Sherita Stubbs MD Primary Care Provider Ellie moreno Encounter Details Date Type Department Care Team Description 06/23/2016 Telephone Adult Medicine [address] [address] Lucía Kohler MD [address] [place] [address]1431 Social History Tobacco Use Types Packs/Day Years [...] on filedocumented in this encounter Care Teams Water Team Leader Relationship Specialty Start Date End Date Lucía Kohler MD [address] [place] [address] 10827 PCP - General 03/28/00 09/26/17 Sabi Natarajan MD [address] [place] [address] 34270 PCP - General Internal Medicine 09/27/17 01/29/18 Sherita Washburn MD [address] [place] [address] 86302 PCP - General Internal Medicine 01/30/18 documented as of this encounter
--- OUTSIDE RECORDS SUMMARY | 2025-02-28 15:07 | XMS_ITS | Encounter Summary ---
Author Organization [facility] Address [address] [place] [address] Care Team Providers Care Torque Tester Name Role Phone Lucía Kohler MD Primary Care Provider [phone] Sabi Natarajan MD Primary Care Provider Sherita Stubbs MD Primary Care Provider Unavaila ble Reason for Referral * Non CHAU (Routine) - Authorized/Booked Specialty Diagnoses / Procedures Referred By Contbaisa bush Referred To Contact Physiatry Procedures REFERRAL TO INDIRECT FIRE INFANTRYMAN Pietro Saunders PA-C [address] [place] [address] [facility]/[address] [address] Referral ID Status Reason Start Date Expiration Date V isits Requested Visits Authorized [id number] Authorized/B ooked 10/14/2015 10/13/2016 1 1 Encounter Details Date Type Department Care Team Description 10/14/2015 Orders Only Adult Medicine [address] [address] Pietro Saunders PA-C Social History Tobacco Use Types Packs/Day [...] on filedocumented in this encounter Care Teams Torque Tester Relationship Specialty Start Date End Date Lucía Kohler MD [address] [place] [address] 72405 PCP - General 03/28/00 09/26/17 Sabi Natarajan MD [address] [place] [address] 49735 PCP - General Internal Medicine 09/27/17 01/29/18 Sherita Washburn MD [address] [place] [address] 75692 PCP - General Internal Medicine 01/30/18 documented as of this encounter
--- OUTSIDE RECORDS SUMMARY | 2025-02-28 15:07 | XMS_ITS | Encounter Summary ---
Author Organization [facility] Address [address] [place] [address] Care Team Providers Care Engineering Designer Name Role Phone Lucía Kohler MD Primary Care Provider [phone] Sabi Natarajan MD Primary Care Provider Sherita Stubbs MD Primary Care Provider Ellie moreno Encounter Details Date Type Department Care Team Description 06/08/2017 [facility] Medical Records [address] [place] [address] 99466 Abstract, Provider Social History Tobacco Use Types [...] on filedocumented in this encounter Care Teams Engineering Designer Relationship Specialty Start Date End Date Lucía Kohler MD [address] [place] [address] 29783 PCP - General 03/28/00 09/26/17 Sabi Natarajan MD [address] [place] [address] 17948 PCP - General Internal Medicine 09/27/17 01/29/18 Sherita Washburn MD [address] [place] [address] 26622 PCP - General Internal Medicine 01/30/18 documented as of this encounter
--- OUTSIDE RECORDS SUMMARY | 2025-02-28 15:07 | XMS_ITS | Encounter Summary ---
Author Organization [facility] Address [address] [place] [address] Care Team Providers Care Counterintelligence Agent Name Role Phone Lucía Kohler MD Primary Care Provider [phone] Sabi Natarajan MD Primary Care Provider Sherita Stubbs MD Primary Care Provider Ellie moreno Encounter Details Date Type Department Care Team Description 12/12/2002 Telephone OBGYN - [place] [address] [place] [address] 70642 Social History Tobacco Use Types Packs/Day Years Used Date Smoking Tobacco: Never Assessed Sex Assigned at Date Recorded Not on file documented as of this encounter Plan of Treatment Not on file documented as of this encounter Visit Diagnoses Not on filedocumented in this encounter Care Teams Counterintelligence Agent Relationship Specialty Start Date End Date Lucía Kohler MD [address] [place] [address] 95154 PCP - General 03/28/00 09/26/17 Saib Natarajan MD [address] [place] [address] 53535 PCP - General Internal Medicine 09/27/17 01/29/18 Sherita Washburn MD [address] [place] [address] 11464 PCP - General Internal Medicine 01/30/18 documented as of this encounter
--- OUTSIDE RECORDS SUMMARY | 2025-02-28 15:07 | XMS_ITS | Encounter Summary ---
Author Organization [facility] Address [address] [place] [address] Care Team Providers Care Client Application Support Engineer Name Role Phone Lucía Kohler MD Primary Care Provider [phone] Sabi Natarajan MD Primary Care Provider Sherita Stubbs MD Primary Care Provider Ellie moreno Encounter Details Date Type Department Care Team Description 04/04/2017 [facility] Medical Records [address] [place] [address] Abstract, Provider Social History Tobacco Use Types [...] on filedocumented in this encounter Care Teams Client Application Support Engineer Relationship Specialty Start Date End Date Lucía Kohler MD [address] [place] [address] 95136 PCP - General 03/28/00 09/26/17 Sabi Natarajan MD [address] [place] [address] 65510 PCP - General Internal Medicine 09/27/17 01/29/18 Sherita Washburn MD [address] [place] [address] 16954 PCP - General Internal Medicine 01/30/18 documented as of this encounter
--- OUTSIDE RECORDS SUMMARY | 2025-02-28 15:08 | XMS_ITS | Encounter Summary ---
Author Organization [facility] Address [address] [place] [address] Care Team Providers Care Saddle Lining Stitcher Name Role Phone Lucía Kohler MD Primary Care Provider [phone] Sabi Natarajan MD Primary Care Provider Sherita Stubbs MD Primary Care Provider Ellie moreno Encounter Details Date Type Department Care Team Description 04/01/2015 MAINTENANCE MECHANIC TECHNICIAN/[facility] Report Medical Records [address] [place] [address] 88801 Abstract, Provider Social History Tobacco Use Types [...] on filedocumented in this encounter Care Teams Saddle Lining Stitcher Relationship Specialty Start Date End Date Lucía Kohler MD [address] [place] [address] 12925 PCP - General 03/28/00 09/26/17 Sabi Natarajan MD [address] [place] [address] 11768 PCP - General Internal Medicine 09/27/17 01/29/18 Sherita Washburn MD [address] [place] [address] 23883 PCP - General Internal Medicine 01/30/18 documented as of this encounter
--- OUTSIDE RECORDS SUMMARY | 2025-02-28 15:08 | XMS_ITS | Encounter Summary ---
Author Organization [facility] Address [address] [place] [address] Care Team Providers Care Fur Stylist Name Role Phone Lucía Kohler MD Primary Care Provider [phone] Sabi Natarajan MD Primary Care Provider Sherita Stubbs MD Primary Care Provider Ellie moreno Encounter Details Date Type Department Care Team Description 06/04/2010 Night Triage Doc Medical Records [address] [place] [address] 15268 Abstract, Provider Social History Tobacco Use Types Packs/Day Years Used Date Smoking Tobacco: Former Cigarettes Q uit: 11/28/2008 Comments:Started @ age 19, 1 /2 PPW Alcohol Use Standard Drinks/Week Comments Yes 0 (1 standard drink = 0.6 oz pur e alcohol) socially Sex Assigned at Date Recorded Not on file documented as of this encounter Plan of Treatment Not on file documented as of this encounter Visit Diagnoses Not on filedocumented in this encounter Care Teams Fur Stylist Relationship Specialty Start Date End Date Lucía Kohler MD [address] [place] [address] 51200 PCP - General 03/28/00 09/26/17 Sabi Natarajan MD [address] [place] [address] 67447 PCP - General Internal Medicine 09/27/17 01/29/18 Sherita Washburn MD [address] [place] [address] 01021 PCP - General Internal Medicine 01/30/18 documented as of this encounter
--- OUTSIDE RECORDS SUMMARY | 2025-02-28 15:08 | XMS_ITS | Encounter Summary ---
Author Organization [facility] Address [address] [place] [address] Care Team Providers Care Lead Security Officer Name Role Phone Lucía Kohler MD Primary Care Provider [phone] Sabi Natarajan MD Primary Care Provider Sherita Stubbs MD Primary Care Provider Unavaila ble Reason for Visit * Reason Onset Date Comments Sore Throat 04/08/2015 Encounter Details Date Type Department Care Team Description 04/08/2015 Telephone Adult Medicine [facility] [address] [place], [place] [phone] Lucía Kohler MD [address] [place] [address] [phone] Sore Throat Social History Tobacco Use Types Packs/Day Years Used Date Smoking Tobacco: Passive Smo ke Exposure - Never Smoker Cigarettes Quit: Smokeless Tobacco: Never Comments:1-2 on weekends Alcohol Use Standard Drinks/Week Comments Yes 0.8 (1 standard drink = 0.6 oz p ure alcohol) socially Sex Assigned at Date Recorded Not on file documented as of this encounter Miscellaneous Notes * Telephone Encounter - Khalida Bey R.N. - 04/08/2015 12:25 PM EDT call #1 placed to patient [facility] - Telephone Triage Documentation CHIEF COMPLAINT:sore throat she c/o sore throat she states her tonsils are very swollen with white spots on them she has foul taste in her mouth her throat is painful to swallow appt scheduled PCP: Lucía Kohler LMP/EDC: Current Outpatient Prescriptions Medication Sig Dispense Refill ??? zolpidem (AMBIEN CR) 6.25 MG CR tablet Take 1 Tab by mouth at bedtime as needed for Sleep. 30 Tab 2 ??? clonazepam (KLONOPIN) 1 MG tablet Take 1 Tab by mouth 2 times daily as needed for Anxiety. 56 Tab 0 ??? tizanidine (ZANAFLEX) 4 MG tablet Take 1 Tab by mouth every 8 hours as needed for Muscle spasms. 42 Tab 0 ??? omeprazole (PRILOSEC) 20 MG capsule Take 1 Cap by mouth daily. 30 Cap 5 ??? norethindrone-ethinyl estradiol (ALAYCEN ) 1-35 MG-MCG per tablet Take 1 tablet by mouth daily. 84 Tab 3 ??? [DISCONTINUED] omeprazole (PRILOSEC OTC) 20 MG tablet Take 1 Tab by mouth daily. 28 Tab 5 ??? DiphenhydrAMINE HCl (BENADRYL) 25 MG TABS 2 TABS AT BEDTIME No current facility-administered medications for this visit. Allergies: Amoxil; Ciprofloxin hcl; Sulfa drugs; and Vicodin Patient Active Problem List Diagnosis Code ??? ANXIETY 300.00 ??? DEPRESSION 311 ??? ESSENTIAL TREMOR 333.1 ??? GERD (Gastroesophageal Reflux Disease) 530.81 ??? Agoraphobia with Panic Disorder 300.21 ??? Metabolic syndrome 277.7 ??? Back pain 724.5 ??? Obese 278.00 DISPOSITION:Appointment given REFERENCE:[facility] Telephone Triage Protocols for Nurses by Sara Enriquez CALLER UNDERSTANDS & AGREES WITH ADVICE:YES * Telephone Encounter - Nancy Thomas - 04/08/2015 9:38 AM EDT Symptoms patient is presenting: pt has white spots on the back of her throat and swellon glands, isin a lot of pain due to this, what to be seen [facility] How long has patient had these symptoms?: last night PCP: Lucía Kohler Payor: [facility] FFS / Plan: [facility] [employer] / Product Type: MEDICAID RISK documented in this encounter Plan of Treatment Not on file documented as of this encounter Visit Diagnoses Not on filedocumented in this encounter Care Teams Lead Security Officer Relationship Specialty Start Date End Date Lucía Kohler MD [address] [place] [address] 20436 PCP - General 03/28/00 09/26/17 Sabi Natarajan MD [address] [place] [address] 00235 PCP - General Internal Medicine 09/27/17 01/29/18 Sherita Washburn MD [address] [place] [address] PCP - General Internal Medicine 01/30/18 documented as of this encounter
--- OUTSIDE RECORDS SUMMARY | 2025-02-28 15:08 | XMS_ITS | Encounter Summary ---
Author Organization [facility] Address [address] [place] [address] Care Team Providers Care Rn Referral Name Role Phone Lucía Kohler MD Primary Care Provider [phone] Sabi Natarajan MD Primary Care Provider Shreita Stubbs MD Primary Care Provider Unavaila ble Reason for Visit * Reason Onset Date Comments other 04/15/2017 Encounter Details Date Type Department Care Team Description 04/15/2017 Telephone Medicine/Pediatrics - [place] [address] [place] [phone] Lucía Kohler MD [address] [place] [id number] other Social History Tobacco Use Types Packs/Day Years Used Date Smoking Tobacco: Former Cigarettes Q uit: 12/12/2016 Smokeless Tobacco: Never Comments:1 cigarette once in awhile Alcohol Use Standard Drinks/Week Comments Yes 0.8 (1 standard drink = 0.6 oz p ure alcohol) socially Sex Assigned at Date Recorded Not on file documented as of this encounter Miscellaneous Notes * Telephone Encounter - Giovanna Sparrow - 04/15/2017 3:21 PM EDT Referrals does not schedule internal appointment, redirecting to specialities * Telephone Encounter - Fadia Natarajan RN - 04/15/2017 3:03 PM EDT Please see below * Telephone Encounter - Shiloh Severino P.A.-C. - 04/15/2017 2:23 PM EDT Small left protrusion at L5-S1 closely approximates the exiting left L5 nerve root which could explain pain radiating down left leg Stable diffuse disc bulge, slightly eccentric to the left Please schedule an appt for possible injection with jayden next week * Telephone Encounter - Tamela Cleaning L.P.N. - 04/15/2017 1:20 PM EDT Please advise do you want to review results * Telephone Encounter - Breanna Thornton - 04/15/2017 12:49 PM EDT Did MRI as instructed by Shiloh and was looking for her results. Dr. Muhammad is doing injections all day today so won't be able to read it she said. Was told to contact Shiloh to get results. documented in this encounter Plan of Treatment Not on file documented as of this encounter Visit Diagnoses Not on filedocumented in this encounter Care Teams Rn Referral Relationship Specialty Start Date End Date Lucía Kohler MD [address] [place] [phone] PCP - General 03/28/00 09/26/17 Sabi Natarajan MD [address] [place] [id number] PCP - General Internal Medicine 09/27/17 01/29/18 Sherita Washburn MD [address] [place] [id number] PCP - General Internal Medicine 01/30/18 documented as of this encounter
--- OUTSIDE RECORDS SUMMARY | 2025-02-28 15:08 | XMS_ITS | Encounter Summary ---
Author Organization [facility] Address [address] [place] [address] Care Team Providers Care Bank Compliance Officer Name Role Phone Lucía Kohler MD Primary Care Provider [phone] Sabi Natarajan MD Primary Care Provider Sherita Stubbs MD Primary Care Provider Ellie moreno Encounter Details Date Type Department Care Team Description 06/08/2004 Telephone Adult Medicine [address] [phone] Lucía Kohler MD [address] [place] [address] [phone] (refused appt ) Social History Tobacco Use Types Packs/Day Years Used Date Smoking Tobacco: Never Assessed Sex Assigned at Date Recorded Not on file documented as of this encounter Miscellaneous Notes * Telephone Encounter - 06/08/2004 9:58 AM EDTCALL RECEIVED. Contact: documenting this pt called complaining that anxiety med she was given in er this am is making her sick, she wasoffered appt to come in this afternoon and refused. said she had to talk to her mom documented in this encounter Plan of Treatment Not on file documented as of this encounter Visit Diagnoses Not on filedocumented in this encounter Care Teams Bank Compliance Officer Relationship Specialty Start Date End Date Lucía Kohler MD [address] [place] [phone] PCP - General 03/28/00 09/26/17 Sabi Natarajan MD [address] [place] [id number] PCP - General Internal Medicine 09/27/17 01/29/18 Sherita Washburn MD [address] [place] [phone] PCP - General Internal Medicine 01/30/18 documented as of this encounter
== END 2025-02-28 14:14 | disposition home or self-care (01) ==
PROVIDERS: PCP Internal Medicine; Visit Provider Nurse Practitioner Family
DX: J06.9 Acute upper respiratory infection, unspecified (principal)

== ENCOUNTER 2025-02-28 13:46 | Outpatient (REF) | payer OTHER, SELFPAY ==
[2025-02-28 18:10] LABS: Influenza A PCR NEGATIVE (Negative); Influenza B PCR NEGATIVE (Negative); Resp Syncy Virus RNA Qual PCR NEGATIVE (Negative); SARS COV2 PCR INHOUSE NEGATIVE (Negative)
== END 2025-02-28 13:47 | disposition home or self-care (01) ==
LOC: HO.LAB 13:46
PROVIDERS: Nurse Practitioner Family; PCP Internal Medicine
DX: J06.9 Acute upper respiratory infection, unspecified (principal)
CPT/HCPCS: 0241U; 99212

== ENCOUNTER 2025-03-03 03:28 | Emergency (ER) | payer OTHER, SELFPAY ==
[2025-03-03 03:29] VITALS: BP 135/80; PULSE 89; RESP 18; TEMP 36.6; O2SAT 99; BMI 48.3
[2025-03-03 06:23] VITALS: BP 117/77; PULSE 83; RESP 18; TEMP 36.4; O2SAT 98
--- NOTE | 2025-03-03 06:42 | ED_ITS ---
HPI - Back Pain/Injury General Chief Complaint: Back Pain/Injury Stated Complaint: Diff breathing Time Seen by Provider: 03/03/25 06:21 Source: patient Mode of arrival: ambulatory Limitations: no limitations History of Present Illness ED Provider: Dr. Yun Esposito HPI Narrative: Patient comes to the emergency room complaining of lower back pain. Patient states that she has chronic back pain. Patient had an appointment with the PCP but she showed up couple of minutes late to her appointment and she was asked to reschedule her appointment. Patient has an appointment in 1 week but co mplaining of ongoing pain. Patient states that she is known to have lumbar disc herniations. Patient states that they have been talking about sending her for an MRI. Patient states that she has been coughing for about a week, no fever chills, however when she coughs, it triggers her back pain. Patient denies any recent injuries. 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 Patient denies urinary incontinence or retention. Denies leg weakness. Patient states that sometimes the pain in the lower back radiates towards the right leg Related Data Home Medications ?Medication ?Instructions ?Recorded ?Confirmed gabapentin 600 mg tablet 600 mg PO TID 10/16/20 11/12/24 buspirone 30 mg tablet 1 tab PO BID 11/04/20 11/12/24 escitalopram oxalate 20 mg tablet 20 mg PO DAILY 10/30/24 11/12/24 eszopiclone 3 mg tablet 3 mg PO BEDTIME PRN 10/30/24 11/12/24 mirtazapine 7.5 mg tablet 7.5 mg PO BEDTIME 10/30/24 11/12/24 alprazolam 1 mg tablet 1 mg PO TID PRN anxiety 02/28/25 escitalopram oxalate 5 mg tablet 5 mg PO DAILY 02/28/25 Previous Rx's ?Medication ?Instructions ?Recorded norethindrone (contraceptive) 0.35 0.35 mg PO DAILY #84 tabs 04/25/24 mg tablet omeprazole 20 mg capsule,delayed 20 mg PO DAILY #90 caps 05/17/24 release propranolol 40 mg tablet 60 mg (1.5 x 40 mg) PO BID #240 10/30/24 tabs baclofen 10 mg tablet 10 mg PO BID #30 tabs 02/21/25 acetaminophen 500 mg capsule 1,000 mg (2 x 500 mg) PO Q6H PRN 02/28/25 pain #30 caps azithromycin 500 mg tablet 500 mg PO DAILY 3 days #3 tabs 02/28/25 benzonatate 200 mg capsule 200 mg PO BID PRN cough #20 caps 03/01/25 baclofen 15 mg tablet 15 mg PO TID PRN muscle spasm #10 03/03/25 tabs carisoprodol 250 mg tablet 250 mg PO TID PRN muscle pain #12 03/03/25 tabs ketorolac 10 mg tablet 10 mg PO BID PRN pain #12 tabs 03/03/25 Allergies Allergy/AdvReac Type Severity Reaction Status Date / Time Penicillins [PENICILLINS] Allergy Severe Anaphylaxis Verified 03/03/25 03:34 amoxicillin [AMOXICILLIN] Allergy Intermediate HIVES Verified 03/03/25 03:34 ciprofloxacin [From CIPRO] Allergy Intermediate HIVES Verified 03/03/25 03:34 citalopram Allergy Intermediate sweating, Verified 03/03/25 03:34 panic attack diclofenac [DICLOFENAC] Allergy Intermediate HIVES, Verified 02/28/25 13:50 ITCHING, FLUSHED Sulfa (Sulfonamide Allergy Intermediate HIVES Verified 03/03/25 03:34 Antibiotics) [SULFA(SULFONAMIDE ANTIBIOTICS)] trazodone Allergy Mild increase Verified 03/03/25 03:34 appetite cyclobenzaprine Allergy Unknown unknown Verified 03/03/25 03:34 [From Flexeril] paroxetine [Paxil] AdvReac Intermediate stomach Verified 03/03/25 03:34 upset quetiapine [Seroquel] AdvReac Unknown Increased Verified 03/03/25 03:34 sweating and weight gain Review of Systems Review of Systems: Constitutional : No Weight loss, No Fever, No Chills, No Night Sweats, No Fatigue, No Malaise ENT/Mouth : No Hearing loss, No Ear Pain, No Nasal Congestion, No Sinus Pain, No Hoarseness, No sore throat, No Rhinorrhea, No Swallowing Difficulty Eyes: No Eye Pain, No Swelling, No Redness, No Foreign Body, No Discharge, No V ision Changes Cardiovascular : No Chest Pain, No SOB, No Dyspnea on Exertion, No Orthopnea, No Edema, No Palpitations Respiratory : No Cough, No Sputum, No Wheezing, No Smoke Exposure, No Dyspnea Gastrointestinal : No Nausea, No Vomiting, No Diarrhea, No Constipation, No abdominal Pain, No Hematochezia, No Melena Genitourinary : no irregular bleeding, No Dysuria, No Urinary Frequency, No Hematuria, No Urinary Incontinence, No Urgency, No Flank Pain, No Urinary Flow Changes, No Hesitancy Musculoskeletal : Chronic back pain No Myalgias, No Joint Swelling Skin : No Skin Lesions, No rash Neuro : No Weakness, No Numbness, No Paresthesias, No Loss of Consciousness, No Dizziness, No Headache Psych : No Anxiety/Panic, No Depression, No SI/HI/AH/VH, No Social Issues, Heme/Lymph: No Bruising, No Bleeding,No Lymphadenopathy Endocrine : No Polyuria, No Polydipsia, No Temperature Intolerance [facility] Past Medical History Medical History Acute respiratory disease Elevated cholesterol HTN (hypertension) Hand injury Annual physical exam Back pain GERD (gastroesophageal reflux disease) Anxiety Rotator cuff tear Complete tear of left rotator cuff Surgical History Hx of cholecystectomy S/P right rotator cuff repair S/P left rotator cuff repair Family History Family History Mother No problems noted. Father Lung cancer Sister Mental health disorder Social History Social History Housing: House Alcohol intake: former Patient Tobacco Use Status: Former Tobacco user Cigarettes Per Day: 3 Smoked in Last 30 Days: No e-Cigarette/Vaping Use: Never Used Second Hand Smoke Exposure: No Use of substances other than those prescribed or required for medical reasons: No Advance Directives: No Advance Directives Information Provided: Yes Do you have a plan to hurt others: No Plan Patient : No service: No Current occupational status: unemployed Current occupation: Unemployed - Right Handed Cognitive needs: No Hearing needs: No Vision needs: No Physical Exam Vital Signs: Vital Signs: Last Vital Signs Temp 97.6 F 03/03/25 07:10 Pulse 83 03/03/25 07:10 Resp 18 03/03/25 07:10 BP 117/77 03/03/25 07:10 Pulse Ox 98 03/03/25 07:10 O2 Del Method Room Air 03/03/25 07:10 BMI result Body Mass Index 48.3 Const: Other: Appearance: Alert. Oriented X3. No acute distress. Eyes: Pupils equal, round and reactive to light. ENT: Pharynx normal. Neck: Normal inspection. Neck supple. No lymph nodes noted. No crepitus CVS: Normal heart rate and rhythm. Pulses normal. Normal S1 and S2 Respiratory: No respiratory distress. Breath sounds normal. No Wheezing. No rales Abdomen: Soft and nontender. No rigidity. No distention. Back: Pain to palpation in the bilateral aspects to the lumbar region. No thoracic or lumbar spine tenderness Skin: Skin warm and dry. Normal skin color. Normal skin turgor. Extremities: No lower extremity edema. No Lacerations. No Rash Neuro: Oriented X 3. No motor deficit. No sensory deficit. Moving all extremities. No slurred speech. CN 2 through 12 grossly intact Psych: calm, cooperative, normal affect Medications Administered Discontinued Medications Generic Name Dose Route Start Last Admin Trade Name Freq PRN Reason Stop Dose Admin Dexamethasone Sodium Phosphate 4 mg 03/03/25 06:41 03/03/25 06:57 Dexamethasone Sod Phosphate 4 Mg/Ml Vial IM 03/03/25 06:42 4 mg ONCE ONE Administration Ketorolac Tromethamine 60 mg 03/03/25 06:41 03/03/25 06:57 Ketorolac Tromethamine 60 Mg/2 Ml Vial IM 03/03/25 06:42 60 mg ONCE ONE Administration Medical Decision Making Medical Decision Making MDM Narrative: Patient was given IM dexamethasone a ketorolac for pain control. Patient requesting SOMA, states that it helps her best with spasms. Imaging is not indicated at this time Of note, patient was discharged and she called back stating that her requested medication for spasms Soma, is not covered by her insurance. Patient requesting a different medication. Baclofen was sent to her pharmacy. Discharge Plan Discharge Clinical Impression: Chronic lumbar radiculopathy Patient Disposition: Home, Self-Care Instructions: Lumbar Radiculopathy (ED), Lower Back Exercises (ED) Additional Instructions: Please follow-up with your primary care physician tomorrow. If you have any worsening or new symptoms, please return to the emergency room or call 911 Prescriptions: New carisoprodol 250 mg tablet 250 mg PO TID PRN (Reason: muscle pain) Qty: 12 0RF Rx Instructions: Do not drive or use machinery after taking this medication ketorolac 10 mg tablet 10 mg PO BID PRN (Reason: pain) Qty: 12 0RF Rx Instructions: maximum total duration of 5 days from all oral, intranasal, or parenteral formulations baclofen 15 mg tablet 15 mg PO TID PRN (Reason: muscle spasm) Qty: 10 0RF No Action norethindrone (contraceptive) 0.35 mg tablet 0.35 mg PO DAILY Qty: 84 3RF omeprazole 20 mg capsule,delayed release(DR/EC) 20 mg PO DAILY Qty: 90 3RF baclofen 10 mg tablet 10 mg PO BID Qty: 30 4RF benzonatate 200 mg capsule 200 mg PO BID PRN (Reason: cough) Qty: 20 0RF buspirone 30 mg tablet 1 tab PO BID gabapentin 600 mg tablet 600 mg PO TID eszopiclone 3 mg tablet 3 mg PO BEDTIME PRN mirtazapine 7.5 mg tablet 7.5 mg PO BEDTIME escitalopram oxalate 20 mg tablet 20 mg PO DAILY propranolol 40 mg tablet 60 mg PO BID Qty: 240 1RF alprazolam 1 mg tablet 1 mg PO TID PRN (Reason: anxiety) escitalopram oxalate 5 mg tablet 5 mg PO DAILY acetaminophen 500 mg capsule 1,000 mg PO Q6H PRN (Reason: pain) Qty: 30 0RF azithromycin 500 mg tablet 500 mg PO DAILY 3 Days Qty: 3 0RF Interventions: ED Discharge Assessment Last Done: 03/03/25 07:10 Discharge Date/Time: 03/03/25 07:11 Print Language: Arabic
--- NOTE | 2025-03-03 06:50 | PC.NURSE ---
Resumed care of patient at 0700, DC placed, PM nurse to DC
[2025-03-03] MEDS: dexAMETHasone sod phosphate 4 MG/ML VIAL IM (06:57)
[2025-03-03] MEDS: Ketorolac Tromethamine 60 MG/2 ML VIAL IM (06:57)
[2025-03-03 07:10] VITALS: BP 117/77; PULSE 83; RESP 18; TEMP 36.4; O2SAT 98
== END 2025-03-03 07:11 | disposition home or self-care (01) ==
PROVIDERS: Emergency Provider Emergency Medicine; PCP Internal Medicine
DX: M54.16 Radiculopathy, lumbar region (principal); M54.50 Low back pain, unspecified
CPT/HCPCS: 96372; 99284; J1100; J1885

== ENCOUNTER 2025-03-05 10:40 | Outpatient (AMB) | payer OTHER, SELFPAY ==
[2025-03-05 11:14] VITALS: BP 136/88; PULSE 83; RESP 20; TEMP 37.1; O2SAT 96; BMI 49.3
--- NOTE | 2025-03-05 11:14 | MHC.PC.OV ---
Vital Signs 03/05/25 11:14 Height 5 ft 5 in Weight 296 lb BMI 49.3 BP 136/88 Blood Pressure Location Lt brachial Position Sitting Respiration 20 Pulse 83 Pulse Source Pulse Oximeter Temp 98.8 F Temp Source Oral Pulse Oximetry (%) 96 Oxygen Delivery Method Room Air Intake Visit Reasons: cough, sneezing, difficult breathing Intake Note: Pt is here today for a sick visit. Pt c/o cough, sneezing sob and lower back pain from coughing. Allergies Penicillins [PENICILLINS] Allergy (Severe, Verified 03/05/25 11:17) Anaphylaxis amoxicillin [AMOXICILLIN] Allergy (Intermediate, Verified 03/05/25 11:17) HIVES ciprofloxacin [From CIPRO] Allergy (Intermediate, Verified 03/05/25 11:17) HIVES citalopram Allergy (Intermediate, Verified 03/05/25 11:17) sweating, panic attack diclofenac [DICLOFENAC] Allergy (Intermediate, Verified 03/05/25 11:17) HIVES, ITCHING, FLUSHED Sulfa (Sulfonamide Antibiotics) [SULFA(SULFONAMIDE ANTIBIOTICS)] Allergy (Intermediate, Verified 03/05/25 11:17) HIVES trazodone Allergy (Mild, Verified 03/05/25 11:17) increase appetite cyclobenzaprine [From Flexeril] Allergy (Unknown, Verified 03/05/25 11:17) unknown paroxetine [Paxil] Adverse Reaction (Intermediate, Verified 03/05/25 11:17) stomach upset quetiapine [Seroquel] Adverse Reaction (Unknown, Verified 03/05/25 11:17) Increased sweating and weight gain Medication List - Last Reconciled 03/05/25 by Sherita Washburn MD acetaminophen 1,000 mg (2 x 500 mg) PO Q6H PRN alprazolam 1 mg PO TID PRN baclofen 15 mg PO TID PRN baclofen 10 mg PO Q6H buspirone 1 tab PO BID carisoprodol 250 mg PO TID PRN escitalopram oxalate 20 mg PO DAILY escitalopram oxalate 5 mg PO DAILY eszopiclone 3 mg PO BEDTIME PRN gabapentin 600 mg PO TID ketorolac 10 mg PO BID PRN mirtazapine 7.5 mg PO BEDTIME norethindrone (contraceptive) 0.35 mg PO DAILY omeprazole 20 mg PO DAILY propranolol 60 mg (1.5 x 40 mg) PO BID semaglutide (weight loss) (Wegovy) 0.25 mg (0.5 mL) subcut QWEEK Tobacco use date assessed: 03/05/25 Dental Screening Dental Screen Date: 11/12/24 HPI cough, sneezing, difficult breathing HPI Details Patient presents for the follow-up. She had upper respiratory infection treated with azithromycin and is feeling better still have some residual cough but denies wheezing. Patient has been decreasing caloric intake increasing physical activity for the last 3 months in effort to lose weight. She has will benefit from GLP 1 agonist to facilitate weight loss. Because of patient's longstanding hypertension and tachycardia phentermine is contraindicated. [facility] Medical History Acute respiratory disease Elevated cholesterol HTN (hypertension) Hand injury Annual physical exam Back pain GERD (gastroesophageal reflux disease) Anxiety Rotator cuff tear Complete tear of left rotator cuff Surgical History Hx of cholecystectomy S/P right rotator cuff repair S/P left rotator cuff repair Family History Mother No problems noted. Father Lung cancer Sister Mental health disorder Social History Housing: House Alcohol intake: former Patient Tobacco Use Status: Former Tobacco user Cigarettes Per Day: 3 e-Cigarette/Vaping Use: Never Used Second Hand Smoke Exposure: No service: No Current occupational status: unemployed Current occupation: Unemployed - Right Handed Cognitive needs: No Hearing needs: No Vision needs: No Questionnaire PHQ-9 Over the last 2 weeks, how often have you been bothered by any of the following problems? 1. Little interest or pleasure in doing things: several days 2. Feeling down, depressed, or hopeless: several days 3. Trouble falling or staying asleep, or sleeping too much: several days 4. Feeling tired or having little energy: several days 5. Poor appetite or overeating: several days 6. Feeling bad about yourself - or that you are a failure or have let yourself or your family down: several days 7. Trouble concentrating on things, such as reading the newspaper or watching television: not at all 8. Moving or speaking so slowly that other people could have noticed. Or the opposite - being so fidgety or restless that you have been moving around a lot more than usual: not at all 9. Thoughts that you would be better off or of hurting yourself in some way: not at all Total score: 6 Depression Screening Interpretation: Negative Depression Screening Done: Yes 13857 - PHQ-9 Billing: Yes Source: Developed by Drs. Rigo Villaseñor, Oliva Loyd, Tarik Robledo and colleagues, with an educational keegan from [employer]. Thrive Questionnaire Date Thrive assessed: 03/05/25 I am a: Patient What is your living situation today?: I have a steady place to live Within the past 12 months, did the food you bought not last and you didn't have the money to get more?: Never true Within the past 12 months, did you worry whether your food would run out before you got money to buy more?: Never true Do you have trouble paying for medicines?: No Do you have trouble getting transportation to medical appointments?: Yes Do you have trouble paying your heating and electricity bill?: No Do you have trouble taking care of your child, family member or friend?: No Do you have trouble with day-to-day activities such as bathing, preparing meals, shopping, managing finances, etc.?: Yes Are you currently unemployed and looking for a job?: No Are you interested in more education?: No Please select the resources that you would like help with: Transportation and Daily support THRIVE Score: 1 ASHLEY-7 AMB Questionnaire ASHLEY-7 Date ASHLEY - 7 assessed: 03/05/25 Feeling nervous, anxious, or on edge: 1 = Several days Not being able to stop or control worryin = Several days Worrying too much about different things: 1 = Several days Trouble relaxin = Several days Being so restless that it is hard to sit still: 1 = Several days Becoming easily annoyed or irritable: 0 = Not at all Feeling afraid as if something awful might happen: 0 = Not at all Total ASHLEY-7 score (0-4 normal; 5-9 mild; 10-14 moderate; 15-21 severe): 5 Source: Developed by Drs. Rigo Villaseñor, Oliva Loyd, Tarik Robledo and colleagues, with an educational keegan from [employer]. ASHLEY-7 Assessment Billing ASHLEY-7 Assessment Tool: ASHLEY-7 Assessment 69638 Review of Systems Const All systems reviewed & are unremarkable except as noted in HPI and below Eyes Reports no additional complaints ENT Reports no additional complaints Card Reports no additional complaints Resp Reports no additional complaints GI Reports no additional complaints Reports no additional complaints Physical exam (Primary Care) Vital Signs: Last Vital Signs Temp 98.8 F 03/05/25 11:14 Pulse 83 03/05/25 11:14 Resp 20 03/05/25 11:14 BP 136/88 03/05/25 11:14 Pulse Ox 96 03/05/25 11:14 Oxygen Delivery Method Room Air 03/05/25 11:14 BMI result Body Mass Index 49.3 Tobacco/Smoking Status: Tobacco use Status Tobacco use date assessed 03/05/25 03/05/25 11:17 Patient Tobacco Use Status Former Tobacco user 03/05/25 11:17 e-Cigarette/Vaping Use Never Used 03/05/25 11:14 PHQ-9: PHQ-9 Score PHQ-9: Total score 6 03/05/25 13:58 Depression Screening Interpretation: Negative Thrive Assessment: Date of Thrive Assessment Date Thrive assessed 03/05/25 03/05/25 11:26 Const General: well developed HENMT Head: Yes normal to inspection Face and sinus: Yes normal facial exam Throat: Yes posterior oropharynx normal Neck Neck: Yes no lymphadenopathy and Yes supple Resp Effort & Inspection: normal respiratory effort Auscultation: clear to auscultation bilaterally Cardio Rhythm: regular rhythm Heart sounds: S1 normal heart sound present and S2 normal heart sound present GI Inspection: Yes normal to inspection Palpation (GI): Soft to palpation Percussion: Yes normal to percussion Auscultation: normal bowel sounds Coding Level of Care Code Est Pt Level 4 (36480) Diagnoses DJD (degenerative joint disease), lumbar M47.816 Essential hypertension I10 Hyperglycemia R73.9 Hyperlipidemia E78.5 Obesity E66.9 Additional Codes ASHLEY-7 Assessment Billing - ASHLEY-7 Assessment Tool: AHSLEY-7 Assessment 43574 ([id number]) PHQ-9 - 17144 - PHQ-9 Billing: Yes ([id number]) Assessment & Plan Assessment & Plan (1) DJD (degenerative joint disease), lumbar: Code(s): M47.816 - Spondylosis without myelopathy or radiculopathy, lumbar region Category: Medical Plan: For chronic lower back pain regular physical activity stretching exercises discussed with the patient she has been taking baclofen on and off as needed. Patient was advised not to take it regularly to avoid tolerance (2) Essential hypertension: Code(s): I10 - Essential (primary) hypertension Category: Medical Plan: Increase propranolol to 60 mg twice a day. Patient was advised to follow low-sodium diet increase physical activity and follow-up in 2 months (3) Hyperglycemia: Code(s): R73.9 - Hyperglycemia, unspecified Category: Medical Plan: A1c is 5.9, ADA diet increase exercise weight loss discussed with the patient (4) Hyperlipidemia: Code(s): E78.5 - Hyperlipidemia, unspecified Category: Medical Plan: Low-cholesterol diet increase physical activity weight loss discussed with the patient. (5) Obesity: Code(s): E66.9 - Obesity, unspecified Category: Medical Plan: Decreasing caloric intake increase physical activity weight loss discussed with the patient. Phentermine is contraindicated because of patient hypertension and tachycardia. Wegovy 0.25 mg weekly will be started patient will follow-up in 2 months to monitor her weight Orders: Orders Hemoglobin A1c 2 Months I10 - Essential (primary) hypertension Complete Blood Count Auto Diff 2 Months I10 - Essential (primary) hypertension Lipid Panel 2 Months I10 - Essential (primary) hypertension Comprehensive Met. Panel 2 Months I10 - Essential (primary) hypertension Medications: New semaglutide (weight loss) (Wegovy) administer weeks 1 through 4 of therapy 0.25 mg (0.5 mL) subcut QWEEK 2 mL 0RF Changed From baclofen 10 mg PO BID 30 tabs 4RF To baclofen 10 mg PO Q6H 90 tabs 0RF Refilled propranolol 60 mg (1.5 x 40 mg) PO BID 240 tabs 1RF I10 - Essential (primary) hypertension
== END 2025-03-05 13:32 | disposition home or self-care (01) ==
LOC: HO.HMCC 10:40
PROVIDERS: PCP Internal Medicine; Visit Provider Internal Medicine
DX: M47.816 Spondylosis without myelopathy or radiculopathy, lumbar region (principal); I10 Essential (primary) hypertension; E66.9 Obesity, unspecified; Z68.42 Body mass index [BMI] 45.0-49.9, adult; R73.9 Hyperglycemia, unspecified; E78.5 Hyperlipidemia, unspecified

== ENCOUNTER → 2025-03-05 10:40 | Outpatient (BNVA) | payer OTHER, SELFPAY | PROVIDERS: PCP Internal Medicine; Visit Provider Internal Medicine | DX: M47.816 Spondylosis without myelopathy or radiculopathy, lumbar region (principal); I10 Essential (primary) hypertension; E78.5 Hyperlipidemia, unspecified; E66.9 Obesity, unspecified; R73.9 Hyperglycemia, unspecified | CPT/HCPCS: 96127; 99212 ==

== ENCOUNTER 2025-04-28 05:17 | Emergency (ER) | payer OTHER, SELFPAY ==
--- NOTE | ~2025-04-28 | XR_ITS ---
CLINICAL HISTORY: pain 3 view right elbow Comparison: None Findings: No acute fractures or dislocations. No significant loss of joint space, osteophytes, or erosions. No joint effusion. No radiopaque foreign body. IMPRESSION: 1. No acute findings This document has been electronically signed by: Cyril Blanco MD on 04/28/2025 08:19:07
[2025-04-28 05:20] VITALS: BP 148/91; PULSE 97; RESP 18; TEMP 36.6; O2SAT 99; BMI 45.8
[2025-04-28 05:52] VITALS: BP 148/91; PULSE 97; RESP 18; TEMP 36.6; O2SAT 99
--- NOTE | 2025-04-28 07:20 | ED_ITS ---
HPI - Extremity Problem General Chief complaint: Extremity Injury, Upper Stated complaint: elbow inj Time Seen by Provider: 04/28/25 06:53 Source: patient and old records reviewed Mode of arrival: ambulatory Limitations: no limitations History of Present Illness ED Provider: RD TOLEDO Narrative: 49 yo female with PMH of obesity, HLD, anxiety, GERD, rotator cuff tear, back pain she has appointment with our ortho team on May 24 for R elbow pain and R rotator cuff injury - she had a fall in October then reinjured it in January when lifting her mom. She is R hand dominant. She reports her R elbow at the olecranon hurts and feels spongy. She takes tylenol, NSAIDs and no relief. She states it is quite painful and needs medications. MD Complaint: joint pain Pain Consistency: constant Location: right and upper extremity Quality: aching and constant Radiation: none Relieving factors: immobilization Exacerbating factors: palpation Associated symptoms: denies other symptoms Context: other Related Data Home Medications ?Medication ?Instructions ?Recorded ?Confirmed gabapentin 600 mg tablet 600 mg PO TID 10/16/20 03/05/25 buspirone 30 mg tablet 1 tab PO BID 11/04/20 03/05/25 escitalopram oxalate 20 mg tablet 20 mg PO DAILY 10/30/24 03/05/25 eszopiclone 3 mg tablet 3 mg PO BEDTIME PRN 10/30/24 03/05/25 mirtazapine 7.5 mg tablet 7.5 mg PO BEDTIME 10/30/24 03/05/25 alprazolam 1 mg tablet 1 mg PO TID PRN anxiety 02/28/25 03/05/25 escitalopram oxalate 5 mg tablet 5 mg PO DAILY 02/28/25 03/05/25 Previous Rx's ?Medication ?Instructions ?Recorded omeprazole 20 mg capsule,delayed 20 mg PO DAILY #90 caps 05/17/24 release acetaminophen 500 mg capsule 1,000 mg (2 x 500 mg) PO Q6H PRN 02/28/25 pain #30 caps baclofen 15 mg tablet 15 mg PO TID PRN muscle spasm #10 03/03/25 tabs carisoprodol 250 mg tablet 250 mg PO TID PRN muscle pain #12 03/03/25 tabs ketorolac 10 mg tablet 10 mg PO BID PRN pain #12 tabs 03/03/25 propranolol 40 mg tablet 60 mg (1.5 x 40 mg) PO BID #240 03/05/25 tabs semaglutide (weight loss) 0.25 0.25 mg (0.5 mL) subcut QWEEK #2 mL 03/05/25 mg/0.5 mL subcutaneous pen injector (Wegovy) tirzepatide (weight loss) 2.5 2.5 mg (0.5 mL) subcut QWEEK #2 mL 03/06/25 mg/0.5 mL subcutaneous pen injector (Zepbound) norethindrone (contraceptive) 0.35 0.35 mg PO DAILY #84 tabs 03/22/25 mg tablet baclofen 10 mg tablet 10 mg PO Q6H #90 tabs 04/16/25 ketorolac 10 mg tablet 10 mg PO TID PRN pain 5 days #15 04/28/25 tabs tramadol 50 mg tablet 50 mg PO BID PRN pain #10 tabs 04/28/25 Allergies Allergy/AdvReac Type Severity Reaction Status Date / Time Penicillins [PENICILLINS] Allergy Severe Anaphylaxis Verified 04/28/25 05:21 amoxicillin [AMOXICILLIN] Allergy Intermediate HIVES Verified 04/28/25 05:21 ciprofloxacin [From CIPRO] Allergy Intermediate HIVES Verified 04/28/25 05:21 citalopram Allergy Intermediate sweating, Verified 04/28/25 05:21 panic attack diclofenac [DICLOFENAC] Allergy Intermediate HIVES, Verified 04/28/25 05:21 ITCHING, FLUSHED Sulfa (Sulfonamide Allergy Intermediate HIVES Verified 04/28/25 05:21 Antibiotics) [SULFA(SULFONAMIDE ANTIBIOTICS)] trazodone Allergy Mild increase Verified 04/28/25 05:21 appetite cyclobenzaprine Allergy Unknown unknown Verified 04/28/25 05:21 [From Flexeril] paroxetine [Paxil] AdvReac Intermediate stomach Verified 04/28/25 05:21 upset quetiapine [Seroquel] AdvReac Unknown Increased Verified 04/28/25 05:21 sweating and weight gain Review of Systems Review of Systems: Constitutional : No Fever, No Chills ENT/Mouth : No Ear Pain, No Hoarseness, No sore throat Eyes: No Eye Pain, No Swelling, No Redness, No Foreign Body Cardiovascular : No Chest Pain, No SOB Respiratory : No Cough, No Dyspnea Gastrointestinal : No Nausea, No Vomiting, No Diarrhea, No abdominal Pain Genitourinary : No Dysuria, No Hematuria Musculoskeletal : positive joint pain, No Myalgias, No Joint Swelling Skin : No Skin lacerations, No rash Neuro : No Weakness, No Numbness, No Loss of Consciousness, No Dizziness, No Headache All other systems reviewed and are negative [facility] Past Medical History Attestation statement: The following information was validated with the patient. Source: old records reviewed Medical History Acute respiratory disease Elevated cholesterol HTN (hypertension) Hand injury Annual physical exam Back pain GERD (gastroesophageal reflux disease) Anxiety Rotator cuff tear Complete tear of left rotator cuff Surgical History Hx of cholecystectomy S/P right rotator cuff repair S/P left rotator cuff repair Family History Family History Mother No problems noted. Father Lung cancer Sister Mental health disorder Social History Social History Housing: House Alcohol intake: former Patient Tobacco Use Status: Former Tobacco user Cigarettes Per Day: 3 Smoked in Last 30 Days: No e-Cigarette/Vaping Use: Never Used Second Hand Smoke Exposure: No Use of substances other than those prescribed or required for medical reasons: No Advance Directives: No Advance Directives Information Provided: Yes Do you have a plan to hurt others: No Plan Patient : No service: No Current occupational status: unemployed Current occupation: Unemployed - Right Handed Cognitive needs: No Hearing needs: No Vision needs: No Physical Exam Vital Signs: Vital Signs: Last Vital Signs Temp 97.8 F 04/28/25 07:36 Pulse 74 04/28/25 07:36 Resp 20 04/28/25 07:36 BP 105/56 L 04/28/25 07:36 Pulse Ox 98 04/28/25 07:36 O2 Del Method Room Air 04/28/25 07:36 BMI result Body Mass Index 45.8 Appearance: Alert. Oriented X3. No acute distress. Eyes: Pupils equal, round and reactive to light. ENT: Pharynx normal. Neck: Normal inspection. Neck supple. CVS: Pulses normal. Respiratory: No respiratory distress. Abdomen: atraumatic Skin: Skin warm and dry. Normal skin color. Extremities: No lower extremity edema. R elbow olecranon there are tiny deposits in the skin felt she states it is spongy, she can move the elbow she is distal NV intact, no redness/swelling. Bursa is not inflammed. Neuro: Oriented X 3. No motor deficit. No sensory deficit. CN2-12 intact Medications Administered Discontinued Medications Generic Name Dose Route Start Last Admin Trade Name Freq PRN Reason Stop Dose Admin Ketorolac Tromethamine 30 mg 04/28/25 07:10 04/28/25 07:40 Ketorolac Tromethamine 30 Mg/Ml Vial IM 04/28/25 07:11 30 mg ONCE ONE Administration Medical Decision Making Medical Decision Making MDM Narrative: 49 yo female with PMH of obesity, HLD, anxiety, GERD, rotator cuff tear, back pain here with prolonged R elbow pain after repeated trauma - at this time xray ordered, IM toradol, has ortho appointment already. She is NV intact and has no signs of infection. PO pain medications at home Differential Diagnosis Differential Diagnoses: The differential diagnosis associated with the presentation includes sprain, tendonitis, calcium deposits Admission/Observation Consideration of admission/observation: Escalation of care including admis abhishek/observation considered can be managed as outpatient Independent Interpretation I performed an independent interpretation of an: Plain X-Ray (no frx) Radiology Impression Discussion of test interpretation with radiology: I have reviewed the radiologist's reading. External Record Review External record reviewed: Outpatient record Prescription Management I considered prescription management with: Pain Medication and Other Discharge Plan Discharge Clinical Impression: Arthralgia of elbow, right Patient Disposition: Home, Self-Care Instructions: Arthralgia (ED), Arm Pain (ED) Additional Instructions: your preliminary read on xray shows no broken bones. your xray will be visible by orthopedics. If anything abnormal after final read we will call you return for any worsening symptoms or concern do not mix oral toradol with any other nsaids such as motrin, ibuprofen, naprosyn Prescriptions: New ketorolac 10 mg tablet 10 mg PO TID PRN (Reason: pain) 5 Days Qty: 15 0RF Rx Instructions: given IV toradol in department tramadol 50 mg tablet 50 mg PO BID PRN (Reason: pain) Qty: 10 0RF No Action omeprazole 20 mg capsule,delayed release(DR/EC) 20 mg PO DAILY Qty: 90 3RF Zepbound 2.5 mg/0.5 mL pen injector 2.5 mg subcut QWEEK Qty: 2 1RF norethindrone (contraceptive) 0.35 mg tablet 0.35 mg PO DAILY Qty: 84 3RF baclofen 10 mg tablet 10 mg PO Q6H Qty: 90 0RF buspirone 30 mg tablet 1 tab PO BID carisoprodol 250 mg tablet 250 mg PO TID PRN (Reason: muscle pain) Qty: 12 0RF Rx Instructions: Do not drive or use machinery after taking this medication ketorolac 10 mg tablet 10 mg PO BID PRN (Reason: pain) Qty: 12 0RF Rx Instructions: maximum total duration of 5 days from all oral, intranasal, or parenteral formulations baclofen 15 mg tablet 15 mg PO TID PRN (Reason: muscle spasm) Qty: 10 0RF gabapentin 600 mg tablet 600 mg PO TID eszopiclone 3 mg tablet 3 mg PO BEDTIME PRN mirtazapine 7.5 mg tablet 7.5 mg PO BEDTIME escitalopram oxalate 20 mg tablet 20 mg PO DAILY alprazolam 1 mg tablet 1 mg PO TID PRN (Reason: anxiety) escitalopram oxalate 5 mg tablet 5 mg PO DAILY acetaminophen 500 mg capsule 1,000 mg PO Q6H PRN (Reason: pain) Qty: 30 0RF Wegovy 0.25 mg/0.5 mL pen injector 0.25 mg subcut QWEEK Qty: 2 0RF Rx Instructions: administer weeks 1 through 4 of therapy propranolol 40 mg tablet 60 mg PO BID Qty: 240 1RF Print Language: Mongolian
[2025-04-28 07:36] VITALS: BP 105/56; PULSE 74; RESP 20; TEMP 36.6; O2SAT 98
[2025-04-28] MEDS: Ketorolac Tromethamine 30 MG/ML VIAL IM (07:40)
--- NOTE | 2025-04-28 07:44 | PC.NURSE ---
pt is alert and oriented, skin pwd, respirations even and unlabored, pt is reporting right elbow pain after a fall back in October and having to assist her mom and lots of lifting, pt states that her elbow feels spongy and throbbing all the time, pain is at 10/10
[2025-04-28 08:16] VITALS: BP 105/56; PULSE 74; RESP 20; TEMP 36.6; O2SAT 98
== END 2025-04-28 08:16 | disposition home or self-care (01) ==
PROVIDERS: Emergency Provider Emergency Medicine
DX: M25.521 Pain in right elbow (principal); E78.5 Hyperlipidemia, unspecified; K21.9 Gastro-esophageal reflux disease without esophagitis; M54.9 Dorsalgia, unspecified; I10 Essential (primary) hypertension
CPT/HCPCS: 73080; 96372; 99284; J1885

== ENCOUNTER → 2025-04-28 06:00 | Outpatient (BNV) | payer OTHER, SELFPAY | PROVIDERS: Emergency Provider Emergency Medicine; Visit Provider Specialist | DX: M25.521 Pain in right elbow (principal) | CPT/HCPCS: 73080 ==

== ENCOUNTER → 2025-07-24 06:24 | Outpatient (BNV) | payer OTHER, SELFPAY | PROVIDERS: PCP Internal Medicine; Visit Provider Radiology Diagnostic Radiology | DX: M17.12 Unilateral primary osteoarthritis, left knee (principal); M25.462 Effusion, left knee | CPT/HCPCS: 73564 ==

== ENCOUNTER 2025-07-24 06:51 | Emergency (ER) | payer OTHER, SELFPAY ==
--- NOTE | ~2025-07-24 | XR_ITS ---
EXAMINATION: XR KNEE, LEFT CLINICAL INFORMATION: lt knee pain COMPARISON: September 27, 2019. TECHNIQUE: AP oblique and lateral views of the left knee. FINDINGS: No acute cortical disruption or malalignment. Small marginal osteophyte formation at the medial femoral condyle. Asymmetric joint space narrowing involving mostly the medial compartment. Small to moderate volume suprapatellar bursa joint effusion. No lytic or blastic lesions. XR/XR knee LT 4V IMPRESSION: Bicompartmental osteoarthrosis/osteoarthritis involving mostly the medial compartment, mild without acute fracture or dislocation. Suprapatellar bursa joint effusion, small to moderate volume. Electronically signed by: Vamsi Koch MD 07/24/2025 07:57 AM EDT
[2025-07-24 06:54] VITALS: BP 146/72; PULSE 68; RESP 18; TEMP 36.6; O2SAT 95; BMI 47.9
--- NOTE | 2025-07-24 08:13 | ED_ITS ---
HPI - General Adult General Chief complaint: Extremity Injury, Lower Stated complaint: L Knee Pain No Injury Time Seen by Provider: 07/24/25 08:10 Source: patient Mode of arrival: ambulatory Limitations: no limitations History of Present Illness ED Provider: Radha Garcia PA-C HPI narrative: Patient is a 49 year old assigned female at with a history of GERD, anxiety, HTN, and DJD, presenting to the emergency department today with left knee pain. Patient states that approximately 1 month ago she was rushing down a set of stairs and hyperextended her left knee. Patient states that ever since then she has had pain and swelling. Patient denies any dizziness, lightheadedness, abdominal pain, nausea, vomiting, fever, chills, blurry vision, double vision, loss of vision, chest pain, difficulty breathing, shortness of breath, back pain, night sweats, pain with urination, increased urinary frequency, increased urinary urgency, blood in her urine or stool, syncope or a near syncopal episode, bowel incontinence, bladder incontinence, or any other complaints at this time. Onset (ago): month(s) (1) Relieving factors: rest Exacerbating factors: movement Associated symptoms: denies other symptoms Related Data Home Medications ?Medication ?Instructions ?Recorded ?Confirmed gabapentin 600 mg tablet 600 mg PO TID 10/16/2003/05 buspirone 30 mg tablet 1 tab PO BID 11/04/20 escitalopram oxalate 20 mg tablet 20 mg PO DAILY 10/3003/05/25 eszopiclone 3 mg tablet 3 mg PO BEDTIME PRN 10/30/24 03/05/25 mirtazapine 7.5 mg tablet 7.5 mg PO BEDTIME 10/30/24 0 03/05/25 alprazolam 1 mg tablet 1 mg PO TID PRN anxiety 02/1903/05/25 escitalopram oxalate 5 mg tablet 5 mg PO DAILY 5 03/05/25 Previous Rx's ?Medication ?Instructions ?Recorded omeprazole 20 mg capsule,delayed 20 mg PO DAILY #90 ca ps 05/17/24 release acetaminophen 500 mg capsule 1,000 mg (2 x 500 mg) PO Q6H PRN 02/28/25 pain #30 caps baclofen 15 mg tablet 15 mg PO TID PRN muscle spas m #10 03/03/25 tabs carisoprodol 250 mg tablet 250 mg PO TID PRN muscle pa in #12 03/03/25 tabs ketorolac 10 mg tablet 10 mg PO BID PRN pain #12 ta bs 03/03/25 semaglutide (weight loss) 0.25 0.25 mg (0.5 mL) subcut QWEEK #2 mL 03/05/25 mg/0.5 mL subcutaneous pen injector (Wegovy) tirzepatide (weight loss) 2.5 2.5 mg (0.5 mL) subcut Q WEEK #2 mL 03/06/25 mg/0.5 mL subcutaneous pen injector (Zepbound) norethindrone (contraceptive) 0.35 0.35 mg PO DAILY #8 4 tabs 03/22/ mg tablet ketorolac 10 mg tablet 10 mg PO TID PRN pain 5 days #15 04/28/25 tabs tramadol 50 mg tablet 50 mg PO BID PRN pain #10 ta bs 04/28/25 baclofen 10 mg tablet 10 mg PO Q6H #90 tabs propranolol 40 mg tablet 60 mg (1.5 x 40 mg) PO BID # 240 07/01/25 tabs naproxen 500 mg tablet 500 mg PO BID 7 days #14 tab s 07/24/25 Allergies Allergy/AdvReac Type Severity Reaction Status Date / Time Penicillins (PENICILLINS) Allergy Severe Anaphylaxis Verified 07/24/25 06:58 amoxicillin (AMOXICILLIN) Allergy Intermediate HIVES Verified 07/24/25 06:58 ciprofloxacin (From CIPRO) Allergy Intermediate HIVES Verified 07/24/25 06:58 citalopram Allergy Intermediate sweating, Verified 07/24/25 06:58 panic attack diclofenac (DICLOFENAC) Allergy Intermediate HIVES, Verified 07/24/25 06:58 ITCHING, FLUSHED Sulfa (Sulfonamide Allergy Intermediate HIVES Verified 07/24/25 06:58 Antibiotics) (SULFA(SULFONAMIDE ANTIBIOTICS)) trazodone Allergy Mild increase Verified 07/24/25 06:58 appetite cyclobenzaprine (From Allergy Unknown unknown Verified 07/24/25 06:58 Flexeril) paroxetine (Paxil) AdvReac Intermediate stomach Verified 07/24/25 06:58 upset quetiapine (Seroquel) AdvReac Unknown Increased Verified 07/24/25 06:58 sweating and weight gain Review of Systems 2 Constitutional: Constitutional: Reports no additional constitutional complaints, Denies chills, Denies fever(s) and Denies night sweats Eyes: Eyes: Reports no additional eye complaints, Denies blurry vision, Denies change in vision, Denies diplopia, Denies eye discharge, Denies loss of vision and Denies eye pain ENT: Denies dizziness Cardiovascular: Cardiovascular: Reports no additional cardiovascular comp laints, Denies chest pain, Denies lightheadedness, Denies Loss of Consciousness and Denies dyspnea Respiratory: Respiratory: Reports no additional respiratory complaints and Denies dyspnea Gastrointestinal: Gastrointestinal: Reports no additional gastrointestinal complaints, Denies abdominal pain, Denies melena, Denies hematochezia, Denies change in bowel habits and Denies change in stool character Genitourinary: Genitourinary: Denies hematuria, Denies urinary frequency, Denies dysuria, Denies urinary incontinence, Denies urinary hesitancy and Denies urinary urgency Musculoskeletal: Musculoskeletal: Reports no additional musculoskeletal complaints, Denies numbness and Denies tingling Comments: left kne pain Neurologic: Denies dizziness, Denies loss of vision, Denies numbness and Denies tingling Psychiatric: Psychiatric: Reports no additional psychiatric complaints Endocrine: Endocrine: Reports no additional endocrine complaints Hematologic/Lymphatic: Hematologic/Lymphatic: Reports no additional hematologic/lymphatic complaints Allergic/Immunologic: Allergic/Immunologic: Reports no additional allergic/immunologic complaints [facility] Past Medical History Attestation statement: The following information was validated with the patient. Source: old records reviewed and nursing notes reviewed Medical History Acute respiratory disease Elevated cholesterol HTN (hypertension) Hand injury Annual physical exam Back pain GERD (gastroesophageal reflux disease) Anxiety Rotator cuff tear Complete tear of left rotator cuff Surgical History Hx of cholecystectomy S/P right rotator cuff repair S/P left rotator cuff repair Family History Family History Mother No problems noted. Father Lung cancer Sister Mental health disorder Social History Social History Housing: House Alcohol intake: former Patient Tobacco Use Status: Former Tobacco user Cigarettes Per Day: 3 Smoked in Last 30 Days: No e-Cigarette/Vaping Use: Never Used Second Hand Smoke Exposure: No Use of substances other than those prescribed or required for medical reasons: No Advance Directives: No Advance Directives Information Provided: Yes Do you have a plan to hurt others: No Plan Patient : No service: No Current occupational status: unemployed Current occupation: Unemployed - Right Handed Cognitive needs: No Hearing needs: No Vision needs: No Physical Exam ED Vital Signs: Vital Signs - 24 hr 07/24/25 06:54 07/24/25 08:47 Temperature 98 F 98 F Pulse Rate 68 68 Respiratory Rate 18 18 Blood Pressure 146/72 H 146/72 H Pulse Oximetry 95 95 Oxygen Delivery Method Room Air Room Air BMI result Body Mass Index 47.9 Const General: cooperative, no acute distress, alert and awake Nutritional Appearance: well nourished Orientation/consciousness: patient oriented x3 HENMT Head: Yes normal to inspection and Yes atraumatic Ears: hearing grossly normal bilaterally and external ears normal General nose exam: Normal external nose present, no nasal discharge noted and no epistaxis Face and sinus: Yes normal facial exam, No abrasion and No laceration Mouth: Normal oral and palatal mucosa present, no drooling and no muffled voice Eyes General: appearance normal, both eyes and all related structures Periorbital: periorbital findings normal Eyelids: Yes eyelids normal Conjunctivae: conjunctivae normal Pupils: Equal, round and reactive pupils present EOM: EOMs intact bilaterally Neck Neck: Yes normal visual inspection and Yes full ROM Resp Effort & Inspection: normal respiratory effort and able to speak in complete sentences Neuro General: patient oriented x3, moves all extremities and CN's II-XI intact bilaterally Cranial nerves: Yes Equal, round and reactive pupils present Cognition (Neuro): normal cognition Extrem Other: Pain with passive and active ROM of the left knee Suprapetllar swelling present - minimal General: Yes full ROM and Yes capillary refill normal Psych Appearance: grossly normal Mental Status: mental status grossly normal Affect: normal affect Attitude: cooperative Thought process: Normal thought process present Thought content: Normal thought content present Insight: Good insight present (Psych) Medications Administered Discontinued Medications Generic Name Dose Route Start Last Admin Trade Name Freq PRN Reason Stop Dose Admin Ketorolac Tromethamine 15 mg 07/24/25 08:30 07/24/25 08:36 Ketorolac Tromethamine 15 Mg/Ml Vial IM 07/24/25 08:31 15 mg ONCE ONE Administration Oxycodone HCl 5 mg 07/24/25 08:30 07/24/25 08:36 Oxycodone Hcl Immed Release 5 Mg Tablet PO 07/24/25 08:31 5 mg ONCE ONE Administration Medical Decision Making Medical Decision Making MDM Narrative: Patient is a 49 year old assigned female at with a history of GERD, an xiety, HTN, and DJD, presenting to the emergency department today with left knee pain. Patient's physical exam was as noted in the physical exam portion of this note. Patient's left knee x-ray showed evidence of arthritis and a suprapetellar effusion. Patient's clinical presentation is most consistent with a strain and given the length of time since the incident - I recommended the patient follow up with the orthopedic team. Patient states that she is already established with them for previous issues. Patient states that she would not like prednisone or any type of steroids at this time as it sets off her anxiety. I explained my physical exam findings as well as all test results to the patient. I answered all questions asked by the patient. I stressed the importance of the patient taking her medication as directed (either prescribed or as the over the counter packaging recommends). I stressed the importance of the patient following up with her primary care provider and the orthopedic team. I stressed the importance of the patient returning to the emergency department immediately if her symptoms were to worsen or if she were to develop any dizziness, shortness of breath, difficulty breathing, chest pain, blurry vision, loss of vision, nausea, vomiting, abdominal pain, fever, chills, back pain, or any other complaints. Patient verbalized agreement and understanding with this treatment plan and discharge. Differential Diagnosis Differential Diagnoses: The differential diagnosis associated with the presentation includes Left knee sprain Left knee pain Left knee swelling Admission/Observation Consideration of admission/observation: Escalation of care including admission/observation considered Patient would have been admitted to the hospital had her work up had any findings where hospital admission was appropriate and her clinical presentation warranted hospital admission. Independent Interpretation I performed an independent interpretation of an: Plain X-Ray Interpretation: My interpretation is in agreement with the radiologist's impression of this imaging study. EXAMINATION: XR KNEE, LEFT CLINICAL INFORMATION: lt knee pain COMPARISON: September 27, 2019. TECHNIQUE: AP oblique and lateral views of the left knee. FINDINGS: No acute cortical disruption or malalignment. Small marginal osteophyte formation at the medial femoral condyle. Asymmetric joint space narrowing involving mostly the medial compartment. Small to moderate volume suprapatellar bursa joint effusion. No lytic or blastic lesions. XR/XR knee LT 4V IMPRESSION: Bicompartmental osteoarthrosis/osteoarthritis involving mostly the medial compartment, mild without acute fracture or dislocation. Suprapatellar bursa joint effusion, small to moderate volume. Electronically signed by: Vamsi Koch MD 07/24/2025 07:57 AM EDT RP Dictated By: Vamsi Canchola MD Signed By: Electronically signed by Vamsi Rincon MD 07/24/25 0757 Radiology Impression Discussion of test interpretation with radiology: I have reviewed the radiologist's reading. Prescription Management I considered prescription management with: Pain Medication (Patient prescribed pain medicine) Discharge Plan Discharge Clinical Impression: Knee sprain, Effusion of patella Patient Disposition: Home, Self-Care Instructions: Knee Sprain (DC), Swollen Knee Joint (ED), P.R.I.C.E. Treatment (ED) Additional Instructions: Your left knee x-ray showed mild bicompartmental osteoarthrosis/osteoarthritis involving mostly the medial compartment with no evidence of acute fracture or dislocation as well as a small - moderate suprapatellar bursa joint effusion. This is secondary to your hyperextension injury and consistent with a sprain / strain. Follow up with the orthopedic team. IF you are prescribed home medications and/or you are taking over the counter medications at home - it is very important you continue to do so as prescribed / directed unless told otherwise. Follow up with your primary care provider. Return to the emergency department immediately if your symptoms worsen or if you develop any numbness, tingling, dizziness, shortness of breath, difficulty breathing, chest pain, blurry vision, loss of vision, nausea, vomiting, abdominal pain, fever, chills, back pain, or any other complaints. Please see the information below about our Patient Portal. If you are not yet enrolled in the [facility] Patient Portal, you will receive an enrollment email invitation following your visit to any [facility] care setting. You may also self-enroll in the Patient Portal by visiting our website: [email or web address] The following information is required to access the Patient Portal: - Your [facility] Medical Record Number - Your personal home email address (must match what is in your electronic medical record, Registration staff can assist with this) - Name - Date of Capabilities of the Patient Portal: - Message some providers - View upcoming appointments - Access your health summary, medical history, and visit history - View current conditions and allergies - View procedure and lab results - View your medications, including guidelines, side effects, and precautions - Complete pre-appointment questionnaires requested by your provider - Ready summary reports of your office visits and procedures To access the Patient Portal Mobile [employer], follow these directions: - Search [employer] in the [employer] Store or [employer] - Download the [employer] - Search for [facility] - Enter your login/password Prescriptions: New naproxen 500 mg tablet 500 mg PO BID 7 Days Qty: 14 0RF No Action omeprazole 20 mg capsule,delayed release(DR/EC) 20 mg PO DAILY Qty: 90 3RF Zepbound 2.5 mg/0.5 mL pen injector 2.5 mg subcut QWEEK Qty: 2 1RF norethindrone (contraceptive) 0.35 mg tablet 0.35 mg PO DAILY Qty: 84 3RF baclofen 10 mg tablet 10 mg PO Q6H Qty: 90 1RF propranolol 40 mg tablet 60 mg PO BID Qty: 240 1RF buspirone 30 mg tablet 1 tab PO BID ketorolac 10 mg tablet 10 mg PO TID PRN (Reason: pain) 5 Days Qty: 15 0RF Rx Instructions: given IV toradol in department tramadol 50 mg tablet 50 mg PO BID PRN (Reason: pain) Qty: 10 0RF carisoprodol 250 mg tablet 250 mg PO TID PRN (Reason: muscle pain) Qty: 12 0RF Rx Instructions: Do not drive or use machinery after taking this medication ketorolac 10 mg tablet 10 mg PO BID PRN (Reason: pain) Qty: 12 0RF Rx Instructions: maximum total duration of 5 days from all oral, intranasal, or parenteral formulations baclofen 15 mg tablet 15 mg PO TID PRN (Reason: muscle spasm) Qty: 10 0RF gabapentin 600 mg tablet 600 mg PO TID eszopiclone 3 mg tablet 3 mg PO BEDTIME PRN mirtazapine 7.5 mg tablet 7.5 mg PO BEDTIME escitalopram oxalate 20 mg tablet 20 mg PO DAILY alprazolam 1 mg tablet 1 mg PO TID PRN (Reason: anxiety) escitalopram oxalate 5 mg tablet 5 mg PO DAILY acetaminophen 500 mg capsule 1,000 mg PO Q6H PRN (Reason: pain) Qty: 30 0RF Wegovy 0.25 mg/0.5 mL pen injector 0.25 mg subcut QWEEK Qty: 2 0RF Rx Instructions: administer weeks 1 through 4 of therapy Referrals: [facility] Orthopedic Surgeons [Provider Group] Referral Note: Call to follow up with the orthopedic group for your left knee sprain. Sherita Washburn MD [Primary Care Provider, Internal Medicine] Interventions: ED Discharge Assessment Last Done: 07/24/25 08:47 Discharge Date/Time: 07/24/25 08:48 Print Language: Egyptian
--- OUTSIDE RECORDS SUMMARY | 2025-07-24 08:32 | XMS_ITS | Encounter Summary ---
Author Organization [facility] Address [address] [place] [address] Care Team Providers Care Skidder Runner Name Role Phone Sherita Washburn MD Primary Care Provider Unavaila ble Reason for Visit * Reason Onset Date Comments refill request 02/26/2019 Encounter Details Date Type Department Care Team Description 02/26/2019 Refill [facility] [address] [place], [place] [id number] Shanelle Oropeza CNM refill request Social History Tobacco Use Types [...] encounter Miscellaneous Notes * Telephone Encounter - Faith Rg - 02/26/2019 11:23 AM EDT WHEN WAS THE PATIENTS LAST ANNUAL LAUNCH MANAGER EXAM? 03/29/18 Does patient have an upcoming appointment? Yes 04/05/19 (THE MEDICATION REQUESTED IS ON THE MED LIST ABOVE) Did you check the Pharmacy information above?: YES Indicate how soon the patient needs the script: FRED (pharmacy states has tried to fax it 3 times to us. Patient is out of meds) Patient would like script to be: E-PRESCRIBED/FAXED TO PHARMACY Is the doctor here today?: NO Can the message wait until the doctor returns?: NO Has the patient been told that the prescription will not be filled until the end of the day? NO Payor: [employer] / Plan: [facility] / Product Type: MEDICAID RISK documented in this encounter Plan of Treatment Not on file documented as of this encounter Visit Diagnoses Not on filedocumented in this encounter Care Teams Skidder Runner Relationship Specialty Start Date End Date Sherita Washburn MD PCP - General Internal Medicine 01/30/18 documented as of this encounter
--- OUTSIDE RECORDS SUMMARY | 2025-07-24 08:32 | XMS_ITS | Encounter Summary ---
Author Organization [facility] Address [address] [place] [address] Care Team Providers Care Nitroglycerin Nitrator Operator Batch Name Role Phone Lucía Kohler MD Primary Care Provider [phone] Sabi Natarajan MD Primary Care Provider Sherita Stubbs MD Primary Care Provider Ellie moreno Encounter Details Date Type Department Care Team Description 07/21/2017 Director Radio News Report Medical Records [address] [place] [address] Cy Guido, PA-C [address] [place] [id number] Social History Tobacco Use Types Packs/Day Years [...] on filedocumented in this encounter Care Teams Nitroglycerin Nitrator Operator Batch Relationship Specialty Start Date End Date Lucía Kohler MD [address] [place] [phone] PCP - General 03/28/00 09/26/17 Sabi Natarajan MD [address] [place] [phone] PCP - General Internal Medicine 09/27/17 01/29/18 Sherita Washburn MD [address] [place] [phone] PCP - General Internal Medicine 01/30/18 documented as of this encounter
--- OUTSIDE RECORDS SUMMARY | 2025-07-24 08:32 | XMS_ITS | Encounter Summary ---
Author Organization [facility] Address [address] [place] [address] Care Team Providers Care Bus Van Driver Name Role Phone Lucía Kohler MD Primary Care Provider [phone] Sabi Natarajan MD Primary Care Provider Sherita Stubbs MD Primary Care Provider Ellie moreno Encounter Details Date Type Department Care Team Description 08/04/2017 [facility] Medical Records [address] [place] [id number] Abstract, Provider Social History Tobacco Use Types [...] on filedocumented in this encounter Care Teams Bus Van Driver Relationship Specialty Start Date End Date Lucía Kohler MD [address] [place] [phone] PCP - General 03/28/00 09/26/17 Sabi Natarajan MD [address] [place] [phone] PCP - General Internal Medicine 09/27/17 01/29/18 Sherita Washburn MD [address] [place] [phone] PCP - General Internal Medicine 01/30/18 documented as of this encounter
--- OUTSIDE RECORDS SUMMARY | 2025-07-24 08:32 | XMS_ITS | Encounter Summary ---
Author Organization [facility] Address [address] [place] [address] Care Team Providers Care Take Off Man Name Role Phone Lucía Kohler MD Primary Care Provider [phone] Sabi Natarajan MD Primary Care Provider Sherita Stubbs MD Primary Care Provider Ellie moreno Encounter Details Date Type Department Care Team Description 09/22/2017 [facility] Medical Records [address] [place] [id number] Abstract, Provider Social History Tobacco Use Types [...] on filedocumented in this encounter Care Teams Take Off Man Relationship Specialty Start Date End Date Lucía Kohler MD [address] [place] [phone] PCP - General 03/28/00 09/26/17 Sabi Natarajan MD [address] [place] [address] PCP - General Internal Medicine 09/27/17 01/29/18 Sherita Washburn MD [address] [place] [phone] PCP - General Internal Medicine 01/30/18 documented as of this encounter
--- OUTSIDE RECORDS SUMMARY | 2025-07-24 08:32 | XMS_ITS | Encounter Summary ---
Author Organization [facility] Address [address] [place] [address] Care Team Providers Care Report Analyst Name Role Phone Sherita Washburn MD Primary Care Provider Ellie moreno Encounter Details Date Type Department Care Team Description 08/24/2019 Telephone [address]erm[address] [place] [phone] Rajesh Muhammad DO Social History Tobacco Use Types Packs/Day Years [...] on filedocumented in this encounter Care Teams Report Analyst Relationship Specialty Start Date End Date Sherita Washburn MD PCP - General Internal Medicine 01/30/18 documented as of this encounter
--- OUTSIDE RECORDS SUMMARY | 2025-07-24 08:32 | XMS_ITS | Encounter Summary ---
Author Organization [facility] Address [address] [place] [address] Care Team Providers Care Patch Sander Name Role Phone Sabi Natarajan MD Primary Care Provider Sherita Stubbs MD Primary Care Provider Ellie moreno Encounter Details Date Type Department Care Team Description 01/20/2018 Release of Information Medical Records [address] [place] [id number] Abstract, Provider Social History Tobacco Use Types [...] on filedocumented in this encounter Care Teams Patch Sander Relationship Specialty Start Date End Date Sabi Natarajan MD PCP - General Internal Medicine 09/27/17 01/29/18 Sherita Washburn MD PCP - General Internal Medicine 01/30/18 documented as of this encounter
--- OUTSIDE RECORDS SUMMARY | 2025-07-24 08:32 | XMS_ITS | Encounter Summary ---
Author Organization [facility] Address [address] [place] [address] Care Team Providers Care Small Wind Energy Installer Name Role Phone Lucía Kohler MD Primary Care Provider [phone] Sabi Natarajan MD Primary Care Provider Sherita Stubbs MD Primary Care Provider Ellie moreno Encounter Details Date Type Department Care Team Description 12/12/2002 Telephone OBGYN - [facility] [address] [place] [phone] Social History Tobacco Use Types Packs/Day Years Used Date Smoking Tobacco: Never Assessed Sex Assigned at Date Recorded Not on file documented as of this encounter Plan of Treatment Not on file documented as of this encounter Visit Diagnoses Not on filedocumented in this encounter Care Teams Small Wind Energy Installer Relationship Specialty Start Date End Date Lucía Kohler MD [address] [place] [phone] PCP - General 03/28/00 09/26/17 Sabi Natarajan MD [address] [place] [phone] PCP - General Internal Medicine 09/27/17 01/29/18 Sherita Washburn MD [address] [place] [phone] PCP - General Internal Medicine 01/30/18 documented as of this encounter
--- OUTSIDE RECORDS SUMMARY | 2025-07-24 08:32 | XMS_ITS | Clinical Summary ---
Author Organization [facility] Address [address] [place] [address] Phone Care Team Providers Care Trial Management Associate Name Role Phone Sherita Washburn MD Primary Care Provider Allergies Active Allergy Reactions Criticality Noted Date Comments Amoxicillin Hives 05/24/2018 Ciprofloxacin Unknown 05/24/2018 Sulfa (Sulfonamide Antibiotics) Anaphylaxis High Medications omeprazole (PRILOSEC) 20 MG capsuleIndicat ions:gastroeso phageal reflux disease Take 20 mg by mouth daily. Indications: gastroesophageal reflux disease Active clonazePAM (KLONOPIN) 1 MG tablet Take 1 mg by mouth 2 (two) times a day as needed. Active norethindrone (MICRONOR) 0.35 mg tablet Take 1 tablet by mouth daily. Active tiZANidine (ZANAFLEX) 4 MG capsule Take 4 mg by mouth 3 (three) times a day. Acti ve traMADol (ULTRAM) 50 mg tablet Take 1 tablet (50 mg total) by mouth every 6 (six) hours as needed for pain (specific location in comments). 10 tablet 05/24/20 18 Active Social History Tobacco Use Types Packs/Day Years Used Date Smoking Tobacco: Light Smoker Alcohol Use Standard Drinks/Week Comments Yes 0 (1 standard drink = 0.6 oz pur e alcohol) occasional Education Answer Date Recorded Are you interested in more education? Not on gisel e 03/25/2023 Are you concerned about learning? Not on file 03/25/2023 No 03/25/2023 No 03/25/2023 Digital Access Answer Date Recorded No 04/25/2023 No 04/25/2023 No 04/25/2023 Reliable internet access at home? Not on file 04/25/2023 Device with a working camera? Not on file Comments Unknown Sex and Gender Information Value Date Recorded Sex Assigned at Female 05/24/2018 6:02 AM EDT Legal Sex Female 9:25 PM EDT Gender Identity Female 05/24/2018 6:02 AM EDT Sexual Orientation Straight 05/24/2018 6: 02 AM EDT Last Filed Vital Signs Vital Sign Reading Time Taken Comments Blood Pressure 130/100 05/24/2018 9:31 AM EDT Pulse 88 05/24/2018 9:31 AM EDT Temperature 36.7 C (98 F) 05/24/2018 9:31 AM EDT Respiratory Rate 18 05/24/2018 9:31 AM EDT Oxygen Saturation 99% 05/24/2018 5:54 AM EDT Inhaled Oxygen Concentration - - Weight 98.9 kg (218 lb) 05/24/2018 5:54 AM EDT Height 165.1 cm (5' 5 ) 05/24/2018 5:54 AM EDT Body Mass Index 36.28 05/24/2018 5:54 AM EDT Plan of Treatment Not on file Medical Devices Not on [place] [address] [place] [address] ACO [facility] [place] [address] [place] [address] [place] [address] [place] [address] [place] [address] [place] [address] ACO Care Teams Trial Management Associate Relationship Specialty Start Date End Date Sherita Washburn MD [facility] [place] [address] PCP - General Internal Medicine 05/24/18 Additional Source Comments The information contained in this document represents components of the legal health record. It is not the complete legal health record.[facility]
--- OUTSIDE RECORDS SUMMARY | 2025-07-24 08:32 | XMS_ITS | Encounter Summary ---
Author Organization [facility] Address [address] [place] [address] Care Team Providers Care Weight And Test Bar Clerk Name Role Phone Lucía Kohler MD Primary Care Provider [phone] Sabi Natarajan MD Primary Care Provider Sherita Stubbs MD Primary Care Provider Unavaila ble Reason for Visit * Reason Comments E-prescribe Rx Request Encounter Details Date Type Department Care Team Description 12/08/2015 Refill Adult Medicine [address] [id number] Cyril Millan PA-C E-prescribe Rx Request Social [...] NO Patients current insurance carrier is: Payor: [employer] FFS / Plan: [employer] PLUS PLAN / Product Type: MEDICAID RISK documented in this encounter Plan of Treatment Not on file documented as of this encounter Visit Diagnoses Not on filedocumented in this encounter Care Teams Weight And Test Bar Clerk Relationship Specialty Start Date End Date Lucía Kohler MD [address] [place], [place] [phone] PCP - General 03/28/00 09/26/17 Sabi Natarajan MD [address] [place] [address] PCP - General Internal Medicine 09/27/17 01/29/18 Sherita Washburn MD [address] [place] [address] PCP - General Internal Medicine 01/30/18 documented as of this encounter
--- OUTSIDE RECORDS SUMMARY | 2025-07-24 08:32 | XMS_ITS | Encounter Summary ---
Author Organization [facility] Address [address] [place] [address] Care Team Providers Care Brass Instrument Repair Technician Name Role Phone Sherita Washburn MD Primary Care Provider Ellie moreno Encounter Details Date Type Department Care Team Description 04/04/2018 [facility] Medical Records [address] [place] [address] Abstract, Provider Social History Tobacco Use Types [...] on filedocumented in this encounter Care Teams Brass Instrument Repair Technician Relationship Specialty Start Date End Date Sherita Washburn MD PCP - General Internal Medicine 01/30/18 documented as of this encounter
--- OUTSIDE RECORDS SUMMARY | 2025-07-24 08:32 | XMS_ITS | Encounter Summary ---
Author Organization [facility] Address [address] [place] [address] Care Team Providers Care Abattoir Manager Name Role Phone Lucía Kohler MD Primary Care Provider [phone] Sabi Natarajan MD Primary Care Provider Sherita Stubbs MD Primary Care Provider Unavaila ble Reason for Visit * Reason Onset Date Comments refill request 01/27/2016 Encounter Details Date Type Department Care Team Description 01/27/2016 Refill Adult Medicine [facility] [address] [place] [address] [phone] Lucía Kohler MD [address] [place] [place] [address] [phone] refill request Social History Tobacco Use Types Packs/Day Years Used Date Smoking Tobacco: Former Cigarettes Q uit: 11/27/2015 Smokeless Tobacco: Never Comments:1-2 on weekends Alcohol Use Standard Drinks/Week Comments Yes 0.8 (1 standard drink = 0.6 oz p ure alcohol) socially Sex Assigned at Date Recorded Not on file documented as of this encounter Miscellaneous Notes * Telephone Encounter - Maite Garcia - 01/27/2016 11:48 AM EST PATIENT'S ORIGINAL REQUEST DENIED DUE TO NOT HAVING APPOINTMENT, PATIENT DOES HAVE APPOINTMENT. PLEASE CALL PATIENT AND EXPLAIN PROBLEM IF ANY, SHE IS CONFUSED AND UPSET. Patient would like script to be: E-PRESCRIBED/FAXED TO PHARMACY WHEN WAS THE PATIENT'S LAST APPOINTMENT IN ADULT MEDICINE? 11/02/15 WHEN WAS THE LAST TIME THE PATIENT SAW THEIR PCP? 06/09/15 Does patient have an upcoming appointment? Yes 02/17/16 (THE MEDICATION REQUESTED IS ON THE MED LIST ABOVE) All of the medications requested were on the CURRENT MEDS list Did you check the Pharmacy information above?: YES Patient wants: 30 -day supply Is this a mail order prescription request ? NO Patients current insurance carrier is: Payor: [employer] FFS / Plan: [employer] PLUS PLAN / Product Type: MEDICAID RISK documented in this encounter Plan of Treatment Not on file documented as of this encounter Visit Diagnoses Not on filedocumented in this encounter Care Teams Abattoir Manager Relationship Specialty Start Date End Date Lucía Kohler MD [address] [place] [address] PCP - General 03/28/00 09/26/17 Sabi Natarajan MD [address] [place] [address] PCP - General Internal Medicine 09/27/17 01/29/18 Sherita Washburn MD [address] [place] [address] PCP - General Internal Medicine 01/30/18 documented as of this encounter
--- OUTSIDE RECORDS SUMMARY | 2025-07-24 08:32 | XMS_ITS | Encounter Summary ---
Author Organization [facility] Address [address] [place] [address] Care Team Providers Care Integration Developer Name Role Phone Lucía Kohler MD Primary Care Provider Sabi Natarajan MD Primary Care Provider Sherita Stubbs MD Primary Care Provider Ellei moreno Encounter Details Date Type Department Care Team Description 08/05/2016 [facility] Medical Records [address] [place] [address] Abstract, Provider Social History Tobacco Use Types [...] on filedocumented in this encounter Care Teams Integration Developer Relationship Specialty Start Date End Date Lucía Kohler MD [address] [place] [address] PCP - General 03/28/00 09/26/17 Sabi Natarajan MD [address] [place] [address] PCP - General Internal Medicine 09/27/17 01/29/18 Sherita Washburn MD [address] [place] [address] PCP - General Internal Medicine 01/30/18 documented as of this encounter
--- OUTSIDE RECORDS SUMMARY | 2025-07-24 08:32 | XMS_ITS | Encounter Summary ---
Author Organization [facility] Address [address] [place] [address] Care Team Providers Care Property Insurance Inspector Name Role Phone Sabi Natarajan MD Primary Care Provider Sherita Stubbs MD Primary Care Provider Ellie moreno Encounter Details Date Type Department Care Team Description 09/28/2017 Transfer Records Medical Records [address] [place] [address] Abstract, Provider Social History Tobacco Use Types [...] 3:00 PM EDT Transfer records received from [facility] sent to Sharon Cowart RN certifed refrigeration operator. documented in this encounter Plan of Treatment Not on file documented as of this encounter Visit Diagnoses Not on filedocumented in this encounter Care Teams Property Insurance Inspector Relationship Specialty Start Date End Date Sabi Natarajan MD PCP - General Internal Medicine 09/27/17 01/29/18 Sherita Washburn MD PCP - General Internal Medicine 01/30/18 documented as of this encounter
--- OUTSIDE RECORDS SUMMARY | 2025-07-24 08:32 | XMS_ITS | Encounter Summary ---
Author Organization [facility] Address [address] [place] [address] Care Team Providers Care Crane Operator Name Role Phone Sherita Washburn MD Primary Care Provider Unavaila ble Reason for Visit * Reason Onset Date Comments refill request 07/10/2019 Encounter Details Date Type Department Care Team Description 07/10/2019 Refill Physiatry - [address] [address] Rajesh Muhammad DO refill request Social History [...] N/A Patients current insurance carrier is: Payor: [employer] FFS / Plan: [employer] / Product Type: MEDICAID RISK documented in this encounter Plan of Treatment Not on file documented as of this encounter Visit Diagnoses Diagnosis Lumbar sprain, subsequent encounter Lumbar radiculitis Thoracic or lumbosacral neuritis or radiculitis, unspecified Lumbar paraspinal muscle spasm Other symptoms referable to back Chronic bilateral low back pain with left-sided sciatica documented in this encounter Care Teams Crane Operator Relationship Specialty Start Date End Date Sherita Washburn MD PCP - General Internal Medicine 01/30/18 documented as of this encounter
--- OUTSIDE RECORDS SUMMARY | 2025-07-24 08:32 | XMS_ITS | Encounter Summary ---
Author Organization [facility] Address [address] [place] [address] Care Team Providers Care Mental Retardation Nurse Name Role Phone Sherita Washburn MD Primary Care Provider Ellie moreno Encounter Details Date Type Department Care Team Description 07/27/2019 [facility] Medical Records [address] [place] [address] Abstract, Provider Social History Tobacco Use Types [...] on filedocumented in this encounter Care Teams Mental Retardation Nurse Relationship Specialty Start Date End Date Sherita Washburn MD PCP - General Internal Medicine 01/30/18 documented as of this encounter
--- OUTSIDE RECORDS SUMMARY | 2025-07-24 08:32 | XMS_ITS | Encounter Summary ---
Author Organization [facility] Address [address] [place] [address] Care Team Providers Care Human Resources Professional Name Role Phone Sherita Washburn MD Primary Care Provider Unavaila ble Reason for Visit * Reason Comments E-prescribe Rx Request Encounter Details Date Type Department Care Team Description 04/21/2019 Refill OBGYN - [place] [address] [place], [place] [phone] Shanelle Oropeza CNM E-prescribe Rx Request Social History Tobacco Use [...] encounter Miscellaneous Notes * Telephone Encounter - Juliette Munoz - 04/24/2019 8:14 AM EDT WHEN WAS THE PATIENTS LAST ANNUAL BUSINESS PRACTICES OFFICER EXAM? 03 29 18 Does patient have an upcoming appointment? Yes 04 30 19 (THE MEDICATION REQUESTED IS ON THE MED LIST ABOVE) Did you check the Pharmacy information above?: YES Indicate how soon the patient needs the script: BY THE END OF THE DAY Patient would like script to be: E-PRESCRIBED/FAXED TO PHARMACY Is the doctor here today?: NO Can the message wait until the doctor returns?: NO Has the patient been told that the prescription will not be filled until the end of the day? YES [place]or[place] [id number] / Plan: [facility] / Product Type: MEDICAID RISK documented in this encounter Plan of Treatment Not on file documented as of this encounter Visit Diagnoses Not on filedocumented in this encounter Care Teams Human Resources Professional Relationship Specialty Start Date End Date Sherita Washburn MD PCP - General Internal Medicine 01/30/18 documented as of this encounter
--- OUTSIDE RECORDS SUMMARY | 2025-07-24 08:32 | XMS_ITS | Encounter Summary ---
Author Organization [facility] Address [address] [place] [address] Care Team Providers Care Lobster Fisherman Name Role Phone Sherita Washburn MD Primary Care Provider Ellie moreno Encounter Details Date Type Department Care Team Description 04/24/2019 Telephone OBGYN - [place] [address] [place] [address] Shanelle Oropeza CNM Social History Tobacco Use Types Packs/Day Years [...] encounter Miscellaneous Notes * Telephone Encounter - Lydia Guillory R.N. - 04/24/2019 9:52 AM EDT What medication? * Telephone Encounter - Gladys Estrada - 04/24/2019 8:50 AM EDT Patient would like script to be: E-PRESCRIBED/FAXED TO PHARMACY WHEN WAS THE PATIENT'S LAST APPOINTMENT IN ADULT MEDICINE? 01/12/19 WHEN WAS THE LAST TIME THE PATIENT SAW THEIR PCP? Same as above Does patient have an upcoming appointment? Yes 04/30/19 (THE MEDICATION REQUESTED IS ON THE MED [...] N/A Patients current insurance carrier is: Payor: [employer] FFS / Plan: [employer] / Product Type: MEDICAID RISK documented in this encounter Plan of Treatment Not on file documented as of this encounter Visit Diagnoses Not on filedocumented in this encounter Care Teams Lobster Fisherman Relationship Specialty Start Date End Date Sherita Washburn MD PCP - General Internal Medicine 01/30/18 documented as of this encounter
--- OUTSIDE RECORDS SUMMARY | 2025-07-24 08:32 | XMS_ITS | Encounter Summary ---
Author Organization [facility] Address [address] [place] [address] Care Team Providers Care Cutter Inspector Name Role Phone Sherita Washburn MD Primary Care Provider Unavaila ble Reason for Visit * Reason Onset Date Comments refill request 08/25/2018 Encounter Details Date Type Department Care Team Description 08/25/2018 Refill Physiatry - [address] [address] Rajesh Muhammad DO refill request Social History [...] encounter Miscellaneous Notes * Telephone Encounter - Akosua Winkler - 08/25/2018 3:19 PM EDT Patient called to change pharmacy location. Patient states she does not want to go [facility] any longer and wants the script to be sent to [facility]. * Telephone Encounter - Sandee Chance M.A. - 08/25/2018 10:06 AM EDT Last ov 07/07/18 Last refill 03/31/18 No future ov * Telephone Encounter - Heather Kincaid - 08/25/2018 9:37 AM EDT Patient would like script to be: E-PRESCRIBED/FAXED TO PHARMACY (THE MEDICATION REQUESTED IS ON THE MED [...] N/A Patients current insurance carrier is: Payor: [facility] / Plan: [facility] / Product Type: MEDICAID RISK documented in this encounter Plan of Treatment Not on file documented as of this encounter Visit Diagnoses Diagnosis Lumbar radiculitis Thoracic or lumbosacral neuritis or radiculitis, unspecified Lumbar paraspinal muscle spasm Other symptoms referable to back Chronic bilateral low back pain with left-sided sciatica documented in this encounter Care Teams Cutter Inspector Relationship Specialty Start Date End Date Sherita Washburn MD PCP - General Internal Medicine 01/30/18 documented as of this encounter
--- OUTSIDE RECORDS SUMMARY | 2025-07-24 08:33 | XMS_ITS | Encounter Summary ---
Author Organization [facility] Address [address] [place] [address] Care Team Providers Care Jingle Writer Name Role Phone Lucía Kohler MD Primary Care Provider [phone] Sabi Natarajan MD Primary Care Provider Sherita Stubbs MD Primary Care Provider Ellie moreno Encounter Details Date Type Department Care Team Description 08/09/2013 FRONT DESK HOST/[facility] Report Medical Records [address] [place] [address] Abstract, Provider Social History Tobacco Use Types [...] on filedocumented in this encounter Care Teams Jingle Writer Relationship Specialty Start Date End Date Lucía Kohler MD [address] [place] [address] PCP - General 03/28/00 09/26/17 Sabi Natarajan MD [address] [place] [address] PCP - General Internal Medicine 09/27/17 01/29/18 Sherita Washburn MD [address] [place] [address] PCP - General Internal Medicine 01/30/18 documented as of this encounter
--- OUTSIDE RECORDS SUMMARY | 2025-07-24 08:33 | XMS_ITS | Encounter Summary ---
Author Organization [facility] Address [address] [place] [address] Care Team Providers Care Dam Tender Name Role Phone Lucía Kohler MD Primary Care Provider [phone] Sabi Natarajan MD Primary Care Provider Sherita Stubbs MD Primary Care Provider Unavaila ble Reason for Visit * Reason Onset Date Comments TEST RESULTS 02/25/2016 Encounter Details Date Type Department Care Team Description 02/25/2016 Telephone Physiatry - [address] [phone] Antonietta Rahman DO TEST RESULTS Social History Tobacco Use Types Packs/Day Years Used Date Smoking Tobacco: Former Cigarettes Q uit: 11/27/2015 Smokeless Tobacco: Never Comments:1-2 on weekends Alcohol Use Standard Drinks/Week Comments Yes 0.8 (1 standard drink = 0.6 oz p ure alcohol) socially Sex Assigned at Date Recorded Not on file documented as of this encounter Miscellaneous Notes * Telephone Encounter - Shiloh Miller C.M.A. - 02/25/2016 8:55 AM EDT Spoke to pt. Pt states she would like to wait until her F/U with Dr. Rahman on 03/26/16 to talk withhim personally regarding her MRI. Pt also stated she did not do any PT because of a family emergency. * Telephone Encounter - Shiloh Miller C.M.A. - 02/25/2016 8:08 AM EDT Left message for pt to call. * Telephone Encounter - Shiloh Miller C.M.A. - 02/25/2016 8:08 AM EDT Message copied by SHILOH MILLER C.M.A. on TueFeb 25, 2016 8:08 AM ------ Message from: ANTONIETTA RAHMAN Created: Miladys Feb 22, 2016 2:48 PM Recommend left L4 TFE, if not better in PT ------ documented in this encounter Plan of Treatment Not on file documented as of this encounter Visit Diagnoses Not on filedocumented in this encounter Care Teams Dam Tender Relationship Specialty Start Date End Date Lucía Kohler MD [address] [place] [address] PCP - General 03/28/00 09/26/17 Sabi Natarajan MD [address] [place] [address] PCP - General Internal Medicine 09/27/17 01/29/18 Sherita Washburn MD [address] [place] [address] PCP - General Internal Medicine 01/30/18 documented as of this encounter
--- OUTSIDE RECORDS SUMMARY | 2025-07-24 08:33 | XMS_ITS | Encounter Summary ---
Author Organization [facility] Address [address] [place] [address] Care Team Providers Care Barrel Ribs Solderer Name Role Phone Lucía Kohler MD Primary Care Provider [phone] Sabi Natarajan MD Primary Care Provider Sherita Stubbs MD Primary Care Provider Ellie moreno Encounter Details Date Type Department Care Team Description 06/08/2017 [facility] Medical Records [address] [place] [address] Abstract, Provider Social History Tobacco Use Types [...] on filedocumented in this encounter Care Teams Barrel Ribs Solderer Relationship Specialty Start Date End Date Lucía Kohler MD [address] [place] [address] PCP - General 03/28/00 09/26/17 Sabi Natarajan MD [address] [place] [address] PCP - General Internal Medicine 09/27/17 01/29/18 Sherita Washburn MD [address] [place] [address] PCP - General Internal Medicine 01/30/18 documented as of this encounter
--- OUTSIDE RECORDS SUMMARY | 2025-07-24 08:33 | XMS_ITS | Encounter Summary ---
Author Organization [facility] Address [address] [place] [address] Care Team Providers Care Groundman/Lineman Name Role Phone Lucía Kohler MD Primary Care Provider [phone] Sabi Natarajan MD Primary Care Provider Sherita Stubbs MD Primary Care Provider Ellie moreno Encounter Details Date Type Department Care Team Description 03/22/2001 Telephone Adult Medicine [address] [address] Cyril Millan PA-C Social History Tobacco Use Types Packs/Day Years Used Date Smoking Tobacco: Never Assessed Sex Assigned at Date Recorded Not on file documented as of this encounter Plan of Treatment Not on file documented as of this encounter Visit Diagnoses Not on filedocumented in this encounter Care Teams Groundman/Lineman Relationship Specialty Start Date End Date Lucía Kohler MD [address] [place] [address] PCP - General 03/28/00 09/26/17 Sabi Natarajan MD [address] [place] [address] PCP - General Internal Medicine 09/27/17 01/29/18 Sherita Washburn MD [address] [place] [address] PCP - General Internal Medicine 01/30/18 documented as of this encounter
--- OUTSIDE RECORDS SUMMARY | 2025-07-24 08:33 | XMS_ITS | Encounter Summary ---
Author Organization [facility] Address [address] [place] [address] Care Team Providers Care Supervisor Records Change Name Role Phone Lucía Kohler MD Primary Care Provider [phone] Sabi Natarajan MD Primary Care Provider Sherita Stubbs MD Primary Care Provider Ellie moreno Encounter Details Date Type Department Care Team Description 04/29/2017 [facility] Controlled Substance Contract Medical Records [address] [place] [address] Abstract, Provider Social History Tobacco Use Types [...] on filedocumented in this encounter Care Teams Supervisor Records Change Relationship Specialty Start Date End Date Lucía Kohler MD [address] [place] [address] PCP - General 03/28/00 09/26/17 Sabi Natarajan MD [address] [place] [address] PCP - General Internal Medicine 09/27/17 01/29/18 Sherita Washburn MD [address] [place] [address] PCP - General Internal Medicine 01/30/18 documented as of this encounter
--- OUTSIDE RECORDS SUMMARY | 2025-07-24 08:33 | XMS_ITS | Encounter Summary ---
Author Organization [facility] Address [address] [place] [address] Care Team Providers Care Center Lead Consultant Name Role Phone Lucía Kohler MD Primary Care Provider [phone] Sabi Natarajan MD Primary Care Provider Sherita Stubbs MD Primary Care Provider Ellie moreno Encounter Details Date Type Department Care Team Description 07/02/2016 APPLICATION DEVELOPMENT SPECIALIST/[facility] Report Medical Records [address] [place] [address] Abstract, Provider Social History Tobacco Use Types [...] on filedocumented in this encounter Care Teams Center Lead Consultant Relationship Specialty Start Date End Date Lucía Kohler MD [address] [place] [address] PCP - General 03/28/00 09/26/17 Sabi Natarajan MD [address] [place] [address] PCP - General Internal Medicine 09/27/17 01/29/18 Sherita Washburn MD [address] [place] [address] PCP - General Internal Medicine 01/30/18 documented as of this encounter
--- OUTSIDE RECORDS SUMMARY | 2025-07-24 08:33 | XMS_ITS | Encounter Summary ---
Author Organization [facility] Address [address] [place] [address] Care Team Providers Care Dental Laboratory Technician Apprentice Name Role Phone Lucía Kohler MD Primary Care Provider [phone] Sabi Natarajan MD Primary Care Provider Sherita Stubbs MD Primary Care Provider Unavaila ble Reason for Visit * Reason Onset Date Comments Provider Call Back 05/09/2017 Encounter Details Date Type Department Care Team Description 05/09/2017 Telephone Physiatry - [address] [address] Rajesh Muhammad DO Provider Call Back Social History Tobacco Use Types Packs/Day Years Used Date Smoking Tobacco: Former Cigarettes Q uit: 12/12/2016 Smokeless Tobacco: Never Comments:1 cigarette once in awhile Alcohol Use Standard Drinks/Week Comments Yes 0.8 (1 standard drink = 0.6 oz p ure alcohol) socially Sex Assigned at Date Recorded Not on file documented as of this encounter Miscellaneous Notes * Telephone Encounter - Mikayla Morgan C.M.A. - 05/10/2017 10:03 AM EDT FYI sent to Dr Kohler. * Telephone Encounter - Concha Sheffield - 05/10/2017 9:15 AM EDT To ISAI Matt. * Telephone Encounter - Quynh Tam - 05/10/2017 8:51 AM EDT Patient Also wanted Dr Kohler to know she got Oxycodone from the ED. * Telephone Encounter - Concha Fry - 05/10/2017 8:32 AM EDT Patient wants to let DR Muhammad know that she did end up going to [facility] er last night and she got a script for oxycodone 10 mg, 10 pills only. She will keep calling to check for cancellations with Dr Muhammad. 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 * Telephone Encounter - Sandee Chance M.A. - 05/09/2017 1:48 PM EDT FYI Patient is aware Dr Muhammad has no appointments available for today and if her pain is this bad thatshe needed to be helped to her car then she should go to the ER. Patient refused the ER and said that the ER personnel are mean to her and told her they will not give her an MRI and they do not treatback pain. I advised her to call her PCP to see if she could be evaluated. Patient states she woulddo this but she would rather see physiatry. I explained we do not have anything open today that cara call tomorrow and at this time I could book her an appointment with Frankie Aden to be seen on Tuesday. Patient declined and stated she only wanted to see Dr Muhammad because he is nice to her and understands her pain. I advised patient to use the medication she has for her back and to rest/ice or heat and see if this helps, she has Percocet, Gabapentin and Tizanidine at home. she is aware that if she gets any weakness or incontinence she needs to go to the ER. * Telephone Encounter - Karla Holly - 05/09/2017 1:15 PM EDT Patient states she was in [facility] today and she all of a sudden had so much pain she had to be helped to her car. Patient states she mowed her lawn yesterday and when she emptied the bag on the dining service supervisor she felt like something was ripping and the pain went down her leg. She applied her lidocaine patch last night about 6:00 pm. patient has been icing the lower back. Patient does have a follow up 05/27/17. Patient is in so much pain and would like a call back. documented in this encounter Plan of Treatment Not on file documented as of this encounter Visit Diagnoses Not on filedocumented in this encounter Care Teams Dental Laboratory Technician Apprentice Relationship Specialty Start Date End Date Lucía Kohler MD [address] [place] [address] PCP - General 03/28/00 09/26/17 Sabi Natarajan MD [address] [place] [address] 19594 PCP - General Internal Medicine 09/27/17 01/29/18 Sherita Washburn MD [address] [place] [address] PCP - General Internal Medicine 01/30/18 documented as of this encounter
--- OUTSIDE RECORDS SUMMARY | 2025-07-24 08:33 | XMS_ITS | Encounter Summary ---
Author Organization [facility] Address [address] [place] [address] Care Team Providers Care Offset Press Operator Apprentice Name Role Phone Lucía Kohler MD Primary Care Provider [phone] Sabi Natarajan MD Primary Care Provider Sherita Stubbs MD Primary Care Provider Ellie moreno Encounter Details Date Type Department Care Team Description 05/25/2012 Controlled Substance Contract with Plan Medical Records [address] [place] [address] Abstract, Provider Social History Tobacco Use Types [...] this encounter Care Teams Offset Press Operator Apprentice Relationship Specialty Start Date End Date Lucía Kohler MD [address] [place] [address] PCP - General 03/28/00 09/26/17 Sabi Natarajan MD [address] [place] [address] 13964 PCP - General Internal Medicine 09/27/17 01/29/18 Sherita Washburn MD [address] [place] [address] 75991 PCP - General Internal Medicine 01/30/18 documented as of this encounter
--- OUTSIDE RECORDS SUMMARY | 2025-07-24 08:33 | XMS_ITS | Encounter Summary ---
Author Organization [facility] Address [address] [place] [address] Care Team Providers Care Gaming Commissioner Name Role Phone Lucía Kohler MD Primary Care Provider [phone] Sabi Natarajan MD Primary Care Provider Sherita Stubbs MD Primary Care Provider Ellie moreno Encounter Details Date Type Department Care Team Description 05/24/2017 [facility] Medical Records [address] [place] [address] Abstract, Provider Social History Tobacco Use Types [...] on filedocumented in this encounter Care Teams Gaming Commissioner Relationship Specialty Start Date End Date Lucía Kohler MD [address] [place] [address] PCP - General 03/28/00 09/26/17 Sabi Natarajan MD [address] [place] [address] 41406 PCP - General Internal Medicine 09/27/17 01/29/18 Sherita Washburn MD [address] [place] [address] 385[address] PCP - General Internal Medicine 01/30/18 documented as of this encounter
--- OUTSIDE RECORDS SUMMARY | 2025-07-24 08:33 | XMS_ITS | Encounter Summary ---
Author Organization [facility] Address [address] [place] [address] Care Team Providers Care Analysis Tester Name Role Phone Lucía Kohler MD Primary Care Provider [phone] Sabi Natarajan MD Primary Care Provider Sherita Stubbs MD Primary Care Provider Unavaila ble Reason for Visit * Reason Onset Date Comments Back Pain 04/28/2017 Encounter Details Date Type Department Care Team Description 04/28/2017 Telephone Physiatry - [address] [phone] Rajesh Muhammad DO Back Pain Social History [...] Telephone Encounter - Sandee Chance M.A. - 04/28/2017 10:41 AM EDT FYI [...] on filedocumented in this encounter Care Teams Analysis Tester Relationship Specialty Start Date End Date Lucía Kohler MD [address] [place] [address] PCP - General 03/28/00 09/26/17 Sabi Natarajan MD [address] [place] [address] PCP - General Internal Medicine 09/27/17 01/29/18 Sherita Washburn MD [address] [place] [address] PCP - General Internal Medicine 01/30/18 documented as of this encounter
--- OUTSIDE RECORDS SUMMARY | 2025-07-24 08:33 | XMS_ITS | Encounter Summary ---
Author Organization [facility] Address [address] [place] [address] Care Team Providers Care Child Daycare Worker Name Role Phone Lucía Kohler MD Primary Care Provider [phone] Sabi Natarajan MD Primary Care Provider Sherita Stubbs MD Primary Care Provider Ellie moreno Encounter Details Date Type Department Care Team Description 05/25/2012 Release of Information Medical Records [address] [place] [address] Abstract, Provider Social History Tobacco Use Types [...] on filedocumented in this encounter Care Teams Child Daycare Worker Relationship Specialty Start Date End Date Lucía Kohler MD [address] [place] [phone] PCP - General 03/28/00 09/26/17 Sabi Natarajan MD [address] [place] [address]649 PCP - General Internal Medicine 09/27/17 01/29/18 Sherita Washburn MD [address] [place] [address] PCP - General Internal Medicine 01/30/18 documented as of this encounter
--- OUTSIDE RECORDS SUMMARY | 2025-07-24 08:33 | XMS_ITS | Encounter Summary ---
Author Organization [facility] Address [address] [place] [address] Care Team Providers Care Mines Inspector Name Role Phone Lucía Kohler MD Primary Care Provider [phone] Sabi Natarajan MD Primary Care Provider Sherita Stubbs MD Primary Care Provider Unavaila ble Reason for Visit * Reason Onset Date Comments Testing 04/22/2016 Encounter Details Date Type Department Care Team Description 04/22/2016 Telephone Radiology - [address] [phone] Anisa Sweet CNM Testing Social History Tobacco Use Types Packs/Day Years Used Date Smoking Tobacco: Former Cigarettes Q uit: 11/27/2015 Smokeless Tobacco: Never Comments:1-2 on weekends Alcohol Use Standard Drinks/Week Comments Yes 0.8 (1 standard drink = 0.6 oz p ure alcohol) socially Sex Assigned at Date Recorded Not on file documented as of this encounter Miscellaneous Notes * Telephone Encounter - Concha Escobar - 04/22/2016 3:36 PM EDT Arlette Mcdaniel was scheduled for an Ultrasound on 12/12/15 and 12/16/15; however Arlette Mcdaniel cancelled her appointment. We have made several attempts by telephone as well as sent a letter on 03/22/16 to reschedule the appointment and were unsuccessful; therefore we are removing the test from our Scheduled Orders Report. Please note that this test must be reordered if required in the future. Thank you, Radiology documented in this encounter Plan of Treatment Not on file documented as of this encounter Visit Diagnoses Not on filedocumented in this encounter Care Teams Mines Inspector Relationship Specialty Start Date End Date Lucía Kohler MD [address] [place] [address] PCP - General 03/28/00 09/26/17 Sabi Natarajan MD [address] [place] [address] PCP - General Internal Medicine 09/27/17 01/29/18 Sherita Washburn MD [address] [place], [place] [phone] PCP - General Internal Medicine 01/30/18 documented as of this encounter
--- OUTSIDE RECORDS SUMMARY | 2025-07-24 08:34 | XMS_ITS | Encounter Summary ---
Author Organization [facility] Address [address] [place] [address] Care Team Providers Care Pointing Machine Operator Name Role Phone Lucía Kohler MD Primary Care Provider [phone] Sabi Natarajan MD Primary Care Provider Sherita Stubbs MD Primary Care Provider Ellie moreno Encounter Details Date Type Department Care Team Description 04/04/2017 [facility] Medical Records [address] [place] [address] Abstract, Provider Social History Tobacco Use Types [...] on filedocumented in this encounter Care Teams Pointing Machine Operator Relationship Specialty Start Date End Date Lucía Kohler MD [address] [place] [address] 41246 PCP - General 03/28/00 09/26/17 Sabi Natarajan MD [address] [place] [address] 22737 PCP - General Internal Medicine 09/27/17 01/29/18 Sherita Washburn MD [address] [place] [address] PCP - General Internal Medicine 01/30/18 documented as of this encounter
--- OUTSIDE RECORDS SUMMARY | 2025-07-24 08:34 | XMS_ITS | Encounter Summary ---
Author Organization [facility] Address [address] [place] [address] Care Team Providers Care Manager Clinical Services Name Role Phone Lucía Kohler MD Primary Care Provider [phone] Sabi Natarajan MD Primary Care Provider Sherita Stubbs MD Primary Care Provider Unavaila ble Reason for Visit * Reason Onset Date Comments Sore Throat 04/08/2015 Encounter Details Date Type Department Care Team Description 04/08/[address] [facility] [address] [place], [place] [phone] Lucía Kohler MD [address] [place] [address] [phone] Sore Throat Social History Tobacco Use Types [...] on filedocumented in this encounter Care Teams Manager Clinical Services Relationship Specialty Start Date End Date Lucía Kohler MD [address] [place] [address] PCP - General 03/28/00 09/26/17 Sabi Natarajan MD [address] [place] [address]48 PCP - General Internal Medicine 09/27/17 01/29/18 Sherita Washburn MD [address] [place] [address] PCP - General Internal Medicine 01/30/18 documented as of this encounter
--- OUTSIDE RECORDS SUMMARY | 2025-07-24 08:34 | XMS_ITS | Encounter Summary ---
Author Organization [facility] Address [address] [place] [address] Care Team Providers Care Functional Director Name Role Phone Lucía Kohler MD Primary Care Provider [phone] Sabi Natarajan MD Primary Care Provider Sherita Stubbs MD Primary Care Provider Ellie moreno Encounter Details Date Type Department Care Team Description 10/08/2016 Night Triage Doc Medical Records [address] [place] [address] Abstract, Provider Social History Tobacco Use Types [...] on filedocumented in this encounter Care Teams Functional Director Relationship Specialty Start Date End Date Lucía Kohler MD [address] [place] [address] 06172 PCP - General 03/28/00 09/26/17 Sabi Natarajan MD [address] [place] [address] 34035 PCP - General Internal Medicine 09/27/17 01/29/18 Sherita Washburn MD [address] [place] [address] 69874 PCP - General Internal Medicine 01/30/18 documented as of this encounter
--- OUTSIDE RECORDS SUMMARY | 2025-07-24 08:34 | XMS_ITS | Encounter Summary ---
Author Organization [facility] Address [address] [place] [address] Care Team Providers Care Chrome Worker Name Role Phone Lucía Kohler MD Primary Care Provider [phone] Sabi Natarajan MD Primary Care Provider Sheirta Stubbs MD Primary Care Provider Ellie moreno Encounter Details Date Type Department Care Team Description 10/30/2014 BASKET PATCHER/[facility] Report Medical Records [address] [place] [address] Abstract, Provider Social History Tobacco Use Types [...] on filedocumented in this encounter Care Teams Chrome Worker Relationship Specialty Start Date End Date Lucía Kohler MD [address] [place] [address] 20844 PCP - General 03/28/00 09/26/17 Sabi Natarajan MD [address] [place] [address] 23854 PCP - General Internal Medicine 09/27/17 01/29/18 Sherita Washburn MD [address] [place] [address] 04430 PCP - General Internal Medicine 01/30/18 documented as of this encounter
--- OUTSIDE RECORDS SUMMARY | 2025-07-24 08:34 | XMS_ITS | Encounter Summary ---
Author Organization [facility] Address [address] [place] [address] Care Team Providers Care Customer Strategy Manager Name Role Phone Lucía Kohler MD Primary Care Provider [phone] Sabi Natarajan MD Primary Care Provider Sherita Stubbs MD Primary Care Provider Unavaila ble Reason for Visit * Reason Onset Date Comments refill request 10/26/2016 Encounter Details Date Type Department Care Team Description 10/26/2016 Refill IT AUDIT MANAGER - [address] [phone] Anisa Sweet CNM refill request Social History Tobacco Use [...] encounter Miscellaneous Notes * Telephone Encounter - La Ram - 10/26/2016 9:05 AM EST Patient would like script to be: E-PRESCRIBED/FAXED TO PHARMACY WHEN WAS THE PATIENT'S LAST APPOINTMENT IN ADULT MEDICINE? 12/01/2015 WHEN WAS THE LAST TIME THE PATIENT SAW THEIR PCP? 08/26/16 Does patient have an upcoming appointment? Yes 12/07/2016 (THE MEDICATION REQUESTED IS ON THE MED LIST ABOVE) All of the medications requested were on the CURRENT MEDS list Did you check the Pharmacy information above?: YES Patient wants: 30 -day supply Is this a mail order prescription request ? NO Patients current insurance carrier is: Payor: [employer] FFS / Plan: FFS HMO $0 [employer] [id number] / Product Type: MEDICAID RISK documented in this encounter Plan of Treatment Not on file documented as of this encounter Visit Diagnoses Not on filedocumented in this encounter Care Teams Customer Strategy Manager Relationship Specialty Start Date End Date Lucía Kohler MD [address] [place], [place] [phone] PCP - General 03/28/00 09/26/17 Sabi Natarajan MD [address] [place], [place] [phone] PCP - General Internal Medicine 09/27/17 01/29/18 Sherita Washburn MD [address] [place], [place] [phone] PCP - General Internal Medicine 01/30/18 documented as of this encounter
--- OUTSIDE RECORDS SUMMARY | 2025-07-24 08:34 | XMS_ITS | Encounter Summary ---
Author Organization [facility] Address [address] [place] [address] Care Team Providers Care Clinical Account Executive Name Role Phone Lucía Kohler MD Primary Care Provider [phone] Sabi Natarajan MD Primary Care Provider Sherita Stubbs MD Primary Care Provider Ellie moreno Encounter Details Date Type Department Care Team Description 06/04/2010 Night Triage Doc Medical Records [address] [place] [address] Abstract, Provider Social History Tobacco Use Types [...] on filedocumented in this encounter Care Teams Clinical Account Executive Relationship Specialty Start Date End Date Lucía Kohler MD [address] [place] [address] 11680 PCP - General 03/28/00 09/26/17 Sabi Natarajan MD [address] [place] [address] 21744 PCP - General Internal Medicine 09/27/17 01/29/18 Sherita Washburn MD [address] [place] [address] 74063 PCP - General Internal Medicine 01/30/18 documented as of this encounter
--- OUTSIDE RECORDS SUMMARY | 2025-07-24 08:34 | XMS_ITS | Encounter Summary ---
Author Organization [facility] Address [address] [place] [address] Care Team Providers Care Linux Kernel Developer Name Role Phone Lucía Kohler MD Primary Care Provider [phone] Sabi Natarajan MD Primary Care Provider Sherita Stubbs MD Primary Care Provider Unavaila ble Reason for Visit * Reason Onset Date Comments APPOINTMENT 02/04/2017 Encounter Details Date Type Department Care Team Description 02/04/2017 Telephone Gastroenterology - [address] [phone] Claude Delgadillo MD APPOINTMENT Social History Tobacco [...] on filedocumented in this encounter Care Teams Linux Kernel Developer Relationship Specialty Start Date End Date Lucía Kohler MD [address] [place] [address] 01020 PCP - General 03/28/00 09/26/17 Sabi Natarajan MD [address] [place] [address] PCP - General Internal Medicine 09/27/17 01/29/18 Sherita Washburn MD [address] [place] [address] 85875 PCP - General Internal Medicine 01/30/18 documented as of this encounter
--- OUTSIDE RECORDS SUMMARY | 2025-07-24 08:34 | XMS_ITS | Encounter Summary ---
Author Organization [facility] Address [address] [place] [address] Care Team Providers Care Balancing Machine Operator Name Role Phone Lucía Kohler MD Primary Care Provider [phone] Sabi Natarajan MD Primary Care Provider Sherita Stubbs MD Primary Care Provider Ellie moreno Encounter Details Date Type Department Care Team Description 05/17/2008 Hospital Medical Records [address] [place] [address] Cisco Esposito MD Social History Tobacco Use Types Packs/Day Years [...] on filedocumented in this encounter Care Teams Balancing Machine Operator Relationship Specialty Start Date End Date Lucía Kohler MD [address] [place] [address] 37787 PCP - General 03/28/00 09/26/17 Sabi Natarajan MD [address] [place] [address] 30754 PCP - General Internal Medicine 09/27/17 01/29/18 Sherita Washburn MD [address] [place] [address] 17699 PCP - General Internal Medicine 01/30/18 documented as of this encounter
--- OUTSIDE RECORDS SUMMARY | 2025-07-24 08:34 | XMS_ITS | Encounter Summary ---
Author Organization [facility] Address [address] [place] [address] Care Team Providers Care Conference Specialist Name Role Phone Lucía Kohler MD Primary Care Provider [phone] Sabi Natarajan MD Primary Care Provider Sherita Stubbs MD Primary Care Provider Ellie moreno Encounter Details Date Type Department Care Team Description 04/01/2015 GLOVE PAIRER/[facility] Report Medical Records [address] [place] [address] 50[address] Abstract, Provider Social History Tobacco Use Types [...] on filedocumented in this encounter Care Teams Conference Specialist Relationship Specialty Start Date End Date Lucía Kohler MD [address] [place] [address] 87379 PCP - General 03/28/00 09/26/17 Sabi Natarajan MD [address] [place] [address] 04141 PCP - General Internal Medicine 09/27/17 01/29/18 Sherita Washburn MD [address] [place] [address] 61882 PCP - General Internal Medicine 01/30/18 documented as of this encounter
--- OUTSIDE RECORDS SUMMARY | 2025-07-24 08:34 | XMS_ITS | Encounter Summary ---
Author Organization [facility] Address [address] [place] [address] Care Team Providers Care Char Conveyor Tender Cellar Name Role Phone Lucía Kohler MD Primary Care Provider [phone] Sabi Natarajan MD Primary Care Provider Sherita Stubbs MD Primary Care Provider Unavaila ble Reason for Visit * Reason Onset Date Comments hospital follow up 11/30/2016 Encounter Details Date Type Department Care Team Description 11/30/2016 Telephone Adult Medicine [facility] [address] [place], [place] [phone] Lucía Kohler MD [address] [place] [address] [phone] hospital follow up Social History Tobacco Use Types Packs/Day Years Used Date Smoking Tobacco: Some Days Cigarettes Last attempted to quit: 11/27/2015 Smokeless Tobacco: Never Comments:1 cigarette once in awhile Alcohol Use Standard Drinks/Week Comments Yes 0.8 (1 standard drink = 0.6 oz p ure alcohol) socially Sex Assigned at Date Recorded Not on file documented as of this encounter Miscellaneous Notes * Telephone Encounter - Prateek Townsend L.P.N. - 11/30/2016 12:01 PM EST ER follow up booked with Lata REYNOLDS for 12/07 at 10:30 Faxed a requests to [facility] for records * Telephone Encounter - Donna Gutierrez - 11/30/2016 9:44 AM EST Patient is calling back. * Telephone Encounter - Prateek HensonP.NMatilde - 11/30/2016 9:22 AM EST Called patient left message for patient to call triage nurse * Telephone Encounter - Stacy Brannon - 11/30/2016 8:38 AM EST Hospital follow up appointment needed Hospital patient was treated at: [facility] Was this only an ER visit or was the patient admitted to the hospital? ER visit only Date of visit if ER visit only: 11/29/15 If patient was admitted what was the date of discharge? N/A Reason/diagnosis for visit or stay: stomach pains When was the patient told to follow up? 1 week Was visit or stay related to an injury? NO If yes, what was the date of injury (DOI)? N/A If yes, was the injury due to N/A documented in this encounter Plan of Treatment Not on file documented as of this encounter Visit Diagnoses Not on filedocumented in this encounter Care Teams Char Conveyor Tender Cellar Relationship Specialty Start Date End Date Lucía Kohler MD [address] [place] [address]58 PCP - General 03/28/00 09/26/17 Sabi Natarajan MD [address] [place] [address] 75980 PCP - General Internal Medicine 09/27/17 01/29/18 Sherita Washburn MD [address] [place] [address] 11872 PCP - General Internal Medicine 01/30/18 documented as of this encounter
--- OUTSIDE RECORDS SUMMARY | 2025-07-24 08:34 | XMS_ITS | Encounter Summary ---
Author Organization [facility] Address [address] [place] [address] Care Team Providers Care Boiler Plant Operator Name Role Phone Lucía Kohler MD Primary Care Provider Sabi Natarajan MD Primary Care Provider Sheriat Stubbs MD Primary Care Provider Ellie moreno Encounter Details Date Type Department Care Team Description 02/08/2010 Night Triage Doc Medical Records [address] [place] [id number] Abstract, Provider Social History Tobacco Use Types [...] on filedocumented in this encounter Care Teams Boiler Plant Operator Relationship Specialty Start Date End Date Lucía Kohler MD [address] [place] [address] PCP - General 03/28/00 09/26/17 Sabi Natarajan MD [address] [place] [address] 37566 PCP - General Internal Medicine 09/27/17 01/29/18 Sherita Washburn MD [address] [place] [address] 21214 PCP - General Internal Medicine 01/30/18 documented as of this encounter
--- OUTSIDE RECORDS SUMMARY | 2025-07-24 08:34 | XMS_ITS | Encounter Summary ---
Author Organization [facility] Address [address] [place] [address] Care Team Providers Care Vessel Builder Name Role Phone Lucía Kohler MD Primary Care Provider [phone] Sbai Natarajan MD Primary Care Provider Sherita Stubbs MD Primary Care Provider Unavaila ble Reason for Visit * Reason Comments E-prescribe Rx Request Encounter Details Date Type Department Care Team Description 03/25/2015 Refill Adult Medicine [address] [phone] Lucía Kohler MD [address] [place] [id number] E-prescribe Rx Request Social History Tobacco Use [...] Miscellaneous Notes * Telephone Encounter - Khalida Willis L.P.N. - 03/26/2015 11:09 AM EDT Script faxed * Telephone Encounter - Lucía Kohler MD - 03/26/2015 9:52 AM EDT Yes, 42 so we can more easily track when the rx will be due * Telephone Encounter - Khalida Willis L.P.NMatilde - 03/26/2015 9:38 AM EDT Last refill per [facility] was 03/12/15, is amount being changed to 42? * Telephone Encounter - Lucía Kohler MD - 03/26/2015 9:26 AM EDT Please verify date of last rx with pharmacy since she was previously trying to fill early. If she is due, set up for 14 day script and treat as a contracted medication * Telephone Encounter - Khalida HensonP.NMatilde - 03/26/2015 9:09 AM EDT Last refill 03/12/15 * Telephone Encounter - Donna Gutierrez - 03/26/2015 8:48 AM EDT Patient would like script to be: E-PRESCRIBED/FAXED TO PHARMACY WHEN WAS THE PATIENT'S LAST APPOINTMENT IN ADULT MEDICINE? 12/18/14 WHEN WAS THE LAST TIME THE PATIENT SAW THEIR PCP? Same as above Does patient have an upcoming appointment? Yes 06/09/15 (THE MEDICATION REQUESTED IS ON THE MED LIST ABOVE) All of the medications requested were on the CURRENT MEDS list Did you check the Pharmacy information above?: YES Patient wants: 30 -day supply Is this a mail order prescription request ? NO Patients current insurance carrier is: Payor: [employer] FFS / Plan: [facility] CARE PLUS PLAN / Product Type: MEDICAID RISK documented in this encounter Plan of Treatment Not on file documented as of this encounter Visit Diagnoses Not on filedocumented in this encounter Care Teams Vessel Builder Relationship Specialty Start Date End Date Lucía Kohler MD [address] [place] [phone] PCP - General 03/28/00 09/26/17 Sabi Natarajan MD [address] [place] [address] 31534 PCP - General Internal Medicine 09/27/17 01/29/18 Sherita Washburn MD [address] [place] [address] 16792 PCP - General Internal Medicine 01/30/18 documented as of this encounter
[2025-07-24] MEDS: oxyCODONE HCl Immed Release 5 MG TABLET PO (08:36)
[2025-07-24 08:47] VITALS: BP 146/72; PULSE 68; RESP 18; TEMP 36.6; O2SAT 95
== END 2025-07-24 08:48 | disposition home or self-care (01) ==
PROVIDERS: Emergency Provider Emergency Medicine; PCP Internal Medicine
DX: M25.562 Pain in left knee (principal); M25.462 Effusion, left knee; I10 Essential (primary) hypertension; K21.9 Gastro-esophageal reflux disease without esophagitis
CPT/HCPCS: 73564; 96372; 99284; J1885

== ENCOUNTER 2025-07-27 14:04 | Emergency (ER) | payer OTHER, SELFPAY ==
[2025-07-27 14:14] VITALS: BP 138/101; PULSE 78; RESP 16; TEMP 36.4; O2SAT 95; BMI 47.9
--- NOTE | 2025-07-27 14:22 | ED.GENADULT ---
HPI - General Adult General Chief complaint: Extremity Injury, Lower Stated complaint: l knee pain Time Seen by Provider: 07/27/25 14:21 Source: patient, RN notes reviewed and old records reviewed Mode of arrival: ambulatory Limitations: no limitations History of Present Illness ED Provider: Denise TOLEDO narrative: 49-year-old female presents for evaluation of left knee pain. She was seen here 2 days ago for similar complaint. Denies any recent falls. She reports her pain was improved when she was given Toradol and oxycodone. She states that she was walking 8000 steps per day and now her left knee hurts more The patient states that every time she takes a step she feels as if her knee is dislocating She is able to walk but has pain while doing so. She is due to see Orthopedics, Dr. Cain on August 15 Related Data Home Medications ?Medication ?Instructions ?Recorded ?Confirmed gabapentin 600 mg tablet 600 mg PO TID 10/16/20 03/05/25 buspirone 30 mg tablet 1 tab PO BID 11/04/20 03/05/25 escitalopram oxalate 20 mg tablet 20 mg PO DAILY 10/30/24 03/05/25 eszopiclone 3 mg tablet 3 mg PO BEDTIME PRN 10/30/24 03/05/25 mirtazapine 7.5 mg tablet 7.5 mg PO BEDTIME 10/30/24 03/05/25 alprazolam 1 mg tablet 1 mg PO TID PRN anxiety 02/28/25 03/05/25 escitalopram oxalate 5 mg tablet 5 mg PO DAILY 02/28/25 03/05/25 Previous Rx's ?Medication ?Instructions ?Recorded omeprazole 20 mg capsule,delayed 20 mg PO DAILY #90 caps 05/17/24 release acetaminophen 500 mg capsule 1,000 mg (2 x 500 mg) PO Q6H PRN 02/28/25 pain #30 caps baclofen 15 mg tablet 15 mg PO TID PRN muscle spasm #10 03/03/25 tabs carisoprodol 250 mg tablet 250 mg PO TID PRN muscle pain #12 03/03/25 tabs ketorolac 10 mg tablet 10 mg PO BID PRN pain #12 tabs 03/03/25 semaglutide (weight loss) 0.25 0.25 mg (0.5 mL) subcut QWEEK #2 mL 03/05/25 mg/0.5 mL subcutaneous pen injector (Wegovy) tirzepatide (weight loss) 2.5 2.5 mg (0.5 mL) subcut QWEEK #2 mL 03/06/25 mg/0.5 mL subcutaneous pen injector (Zepbound) norethindrone (contraceptive) 0.35 0.35 mg PO DAILY #84 tabs 03/22/25 mg tablet ketorolac 10 mg tablet 10 mg PO TID PRN pain 5 days #15 04/28/25 tabs tramadol 50 mg tablet 50 mg PO BID PRN pain #10 tabs 04/28/25 baclofen 10 mg tablet 10 mg PO Q6H #90 tabs 05/29/25 propranolol 40 mg tablet 60 mg (1.5 x 40 mg) PO BID #240 07/01/25 tabs naproxen 500 mg tablet 500 mg PO BID 7 days #14 tabs 07/24/25 oxycodone 5 mg tablet 5 mg PO Q6H PRN severe pain (scale 07/27/25 score 7-10) #15 tabs Allergies Allergy/AdvReac Type Severity Reaction Status Date / Time Penicillins (PENICILLINS) Allergy Severe Anaphylaxis Verified 07/27/25 14:16 amoxicillin (AMOXICILLIN) Allergy Intermediate HIVES Verified 07/27/25 14:16 ciprofloxacin (From CIPRO) Allergy Intermediate HIVES Verified 07/27/25 14:16 citalopram Allergy Intermediate sweating, Verified 07/27/25 14:16 panic attack diclofenac (DICLOFENAC) Allergy Intermediate HIVES, Verified 07/27/25 14:16 ITCHING, FLUSHED Sulfa (Sulfonamide Allergy Intermediate HIVES Verified 07/27/25 14:16 Antibiotics) (SULFA(SULFONAMIDE ANTIBIOTICS)) trazodone Allergy Mild increase Verified 07/27/25 14:16 appetite cyclobenzaprine (From Allergy Unknown unknown Verified 07/27/25 14:16 Flexeril) paroxetine (Paxil) AdvReac Intermediate stomach Verified 07/27/25 14:16 upset quetiapine (Seroquel) AdvReac Unknown Increased Verified 07/27/25 14:16 sweating and weight gain Review of Systems Constitutional: Constitutional: Denies body ache(s), Denies chills, Denies fever(s) and Denies headache(s) Eyes: Eyes: Denies blurry vision ENT: Denies vertigo, Denies dizziness and Denies headache(s) Cardiovascular: Cardiovascular: Denies chest pain and Denies dyspnea on exertion Respiratory: Respiratory: Denies cough and Denies dyspnea on exertion Gastrointestinal: Gastrointestinal: Denies abdominal pain, Denies nausea and Denies vomiting Musculoskeletal: Musculoskeletal: Reports arthralgias, Reports joint swelling and Denies limited range of motion Neurologic: Denies vertigo, Denies dizziness and Denies headache(s) [facility] Past Medical History Medical History Acute respiratory disease Elevated cholesterol HTN (hypertension) Hand injury Annual physical exam Back pain GERD (gastroesophageal reflux disease) Anxiety Rotator cuff tear Complete tear of left rotator cuff Surgical History Hx of cholecystectomy S/P right rotator cuff repair S/P left rotator cuff repair Family History Family History Mother No problems noted. Father Lung cancer Sister Mental health disorder Social History Social History Housing: House Alcohol intake: former Patient Tobacco Use Status: Former Tobacco user Cigarettes Per Day: 3 e-Cigarette/Vaping Use: Never Used Second Hand Smoke Exposure: No Advance Directives: No Advance Directives Information Provided: No service: No Current occupational status: unemployed Current occupation: Unemployed - Right Handed Cognitive needs: No Hearing needs: No Vision needs: No Physical Exam ED Vital Signs: Vital Signs - 24 hr 07/27/25 14:14 Temperature 97.6 F Pulse Rate 78 Respiratory Rate 16 Blood Pressure 138/101 H Pulse Oximetry 95 Oxygen Delivery Method Room Air BMI result Body Mass Index 47.9 Const General: healthy appearing, comfortable, no acute distress, alert and awake Nutritional Appearance: well nourished Orientation/consciousness: patient oriented x3 HENMT Head: Yes normocephalic and Yes atraumatic Eyes Eyelids: Yes eyelids normal Conjunctivae: conjunctivae normal Sclerae: sclerae normal Corneas: corneas normal Pupils: Equal, round and reactive pupils present EOM: EOMs intact bilaterally Neck Neck: Yes full ROM Resp Effort & Inspection: normal respiratory effort, able to speak in complete sentences and not labored Skin General skin exam: elasticity normal Neuro General: patient oriented x3 Cranial nerves: Yes Equal, round and reactive pupils present and Yes Bilaterally intact EOM present Cognition (Neuro): normal cognition Extrem Other: Exam is somewhat limited due to body habitus. She is able to flex and extend the knee with full range of motion. There was no calf tenderness on exam. She has some pain elicited with valgus strain. She is globally tender to left knee without any obvious deformity on exam. Medical Decision Making Medical Decision Making [facility] Narrative: 49-year-old female presents for evaluation of left knee pain. She has not had any recent trauma since being seen 2 days ago. I reviewed the recent x-ray which shows osteoarthritis with a small joint effusion. There was no evidence of infectious process, the patient retains good range of motion. There was no recent injury to warrant additional imaging at this time. No calf pain or tenderness on exam to suggest DVT. We will treat her pain and she will be discharged to follow up with Orthopedics. The patient is given an Jayro wrap and crutches Differential Diagnosis Differential Diagnoses: The differential diagnosis associated with the presentation includes Left knee pain Arthritis Joint effusion Knee sprain Discharge Plan Discharge Clinical Impression: Acute pain of left knee Patient Disposition: Home, Self-Care Instructions: Knee Pain (ED) Additional Instructions: Follow-up with orthopedics as planned. Your x-ray from 2 days ago showed fairly significant joint effusion and arthritis You may continue to use naproxen for pain. I sent a prescription for oxycodone to your pharmacy. This may make you drowsy, do not drink alcohol or drive after taking it Prescriptions: New oxycodone 5 mg tablet 5 mg PO Q6H PRN (Reason: severe pain (scale score 7-10)) Qty: 15 0RF Rx Instructions: Partial Fill upon patient request. No Action omeprazole 20 mg capsule,delayed release(DR/EC) 20 mg PO DAILY Qty: 90 3RF Zepbound 2.5 mg/0.5 mL pen injector 2.5 mg subcut QWEEK Qty: 2 1RF norethindrone (contraceptive) 0.35 mg tablet 0.35 mg PO DAILY Qty: 84 3RF baclofen 10 mg tablet 10 mg PO Q6H Qty: 90 1RF propranolol 40 mg tablet 60 mg PO BID Qty: 240 1RF buspirone 30 mg tablet 1 tab PO BID ketorolac 10 mg tablet 10 mg PO TID PRN (Reason: pain) 5 Days Qty: 15 0RF Rx Instructions: given IV toradol in department tramadol 50 mg tablet 50 mg PO BID PRN (Reason: pain) Qty: 10 0RF naproxen 500 mg tablet 500 mg PO BID 7 Days Qty: 14 0RF carisoprodol 250 mg tablet 250 mg PO TID PRN (Reason: muscle pain) Qty: 12 0RF Rx Instructions: Do not drive or use machinery after taking this medication ketorolac 10 mg tablet 10 mg PO BID PRN (Reason: pain) Qty: 12 0RF Rx Instructions: maximum total duration of 5 days from all oral, intranasal, or parenteral formulations baclofen 15 mg tablet 15 mg PO TID PRN (Reason: muscle spasm) Qty: 10 0RF gabapentin 600 mg tablet 600 mg PO TID eszopiclone 3 mg tablet 3 mg PO BEDTIME PRN mirtazapine 7.5 mg tablet 7.5 mg PO BEDTIME escitalopram oxalate 20 mg tablet 20 mg PO DAILY alprazolam 1 mg tablet 1 mg PO TID PRN (Reason: anxiety) escitalopram oxalate 5 mg tablet 5 mg PO DAILY acetaminophen 500 mg capsule 1,000 mg PO Q6H PRN (Reason: pain) Qty: 30 0RF Wegovy 0.25 mg/0.5 mL pen injector 0.25 mg subcut QWEEK Qty: 2 0RF Rx Instructions: administer weeks 1 through 4 of therapy Discharge Date/Time: 07/27/25 14:35 Print Language: Spanish
--- OUTSIDE RECORDS SUMMARY | 2025-07-27 14:34 | XMS_ITS | Encounter Summary ---
Author Organization [facility] Address [address] [place] [address] Care Team Providers Care Greenskeeper Laborer Name Role Phone Sherita Washburn MD Primary Care Provider Unavaila ble Reason for Visit * Reason Onset Date Comments refill request 07/10/2019 Encounter Details Date Type Department Care Team Description 07/10/2019 Refill Physiatry - [address] [id number] Rajesh Muhammad DO refill request Social History [...] N/A Patients current insurance carrier is: Payor: [employer] FFS / Plan: [employer] / Product Type: MEDICAID RISK documented in this encounter Plan of Treatment Not on file documented as of this encounter Visit Diagnoses Diagnosis Lumbar sprain, subsequent encounter Lumbar radiculitis Thoracic or lumbosacral neuritis or radiculitis, unspecified Lumbar paraspinal muscle spasm Other symptoms referable to back Chronic bilateral low back pain with left-sided sciatica documented in this encounter Care Teams Greenskeeper Laborer Relationship Specialty Start Date End Date Sherita Washburn MD PCP - General Internal Medicine 01/30/18 documented as of this encounter
--- OUTSIDE RECORDS SUMMARY | 2025-07-27 14:34 | XMS_ITS | Encounter Summary ---
Author Organization [facility] Address [address] [place] [address] Care Team Providers Care Shoe Associate Name Role Phone Lucía Kohler MD Primary Care Provider [phone] Sabi Natarajan MD Primary Care Provider Sherita Stubbs MD Primary Care Provider Ellie moreno Encounter Details Date Type Department Care Team Description 09/22/2017 [facility] Medical Records [address] [place] [id number] Abstract, Provider Social History Tobacco Use Types [...] on filedocumented in this encounter Care Teams Shoe Associate Relationship Specialty Start Date End Date Lucía Kohler MD [address] [place] [address]992 PCP - General 03/28/00 09/26/17 Sabi Natarajan MD [address] [place] [address]21 PCP - General Internal Medicine 09/27/17 01/29/18 Sherita Washburn MD [address] [place] [address] 36801 PCP - General Internal Medicine 01/30/18 documented as of this encounter
--- OUTSIDE RECORDS SUMMARY | 2025-07-27 14:34 | XMS_ITS | Encounter Summary ---
Author Organization [facility] Address [address] [place] [address] Care Team Providers Care Scissors Sharpener Name Role Phone Lucía Kohler MD Primary Care Provider Sabi Natarajan MD Primary Care Provider Sherita Stubbs MD Primary Care Provider Unavaila ble Reason for Visit * Reason Onset Date Comments Testing 04/22/2016 Encounter Details Date Type Department Care Team Description 04/22/2016 Telephone Radiology - [address] [phone] Anisa Sweet CNM Testing Social History Tobacco [...] on filedocumented in this encounter Care Teams Scissors Sharpener Relationship Specialty Start Date End Date Lucía Kohler MD [address] [place] [address]95 PCP - General 03/28/00 09/26/17 Sabi Natarajan MD [address] [place] [address] 17855 PCP - General Internal Medicine 09/27/17 01/29/18 Sherita Washburn MD [address] [place], [place] [phone] PCP - General Internal Medicine 01/30/18 documented as of this encounter
--- OUTSIDE RECORDS SUMMARY | 2025-07-27 14:34 | XMS_ITS | Encounter Summary ---
Author Organization [facility] Address [address] [place] [address] Care Team Providers Care Dowel Setting Machine Operator Name Role Phone Lucía Kohler MD Primary Care Provider [phone] Sabi Natarajan MD Primary Care Provider Sherita Stubbs MD Primary Care Provider Unavaila ble Reason for Visit * Reason Comments E-prescribe Rx Request Encounter Details Date Type Department Care Team Description 12/08/2015 Refill Adult Medicine [address] [phone] Cyril Millan PA-C E-prescribe Rx Request Social [...] NO Patients current insurance carrier is: Payor: [employer] FFS / Plan: [employer] PLUS PLAN / Product Type: MEDICAID RISK documented in this encounter Plan of Treatment Not on file documented as of this encounter Visit Diagnoses Not on filedocumented in this encounter Care Teams Dowel Setting Machine Operator Relationship Specialty Start Date End Date Lucía Kohler MD [address] [place], [place] [phone] PCP - General 03/28/00 09/26/17 Sabi Natarajan MD [address] [place] [address] PCP - General Internal Medicine 09/27/17 01/29/18 Sherita Washburn MD [address] [place] [address] 17618 PCP - General Internal Medicine 01/30/18 documented as of this encounter
--- OUTSIDE RECORDS SUMMARY | 2025-07-27 14:34 | XMS_ITS | Encounter Summary ---
Author Organization [facility] Address [address] [place] [address] Care Team Providers Care Collector Of Port Name Role Phone Lucía Kohler MD Primary Care Provider [phone] Sabi Natarajan MD Primary Care Provider Sherita Stubbs MD Primary Care Provider Ellie moreno Encounter Details Date Type Department Care Team Description 06/01/2013 Controlled Substance Plan Medical Records [address] [place] [address] [id number] Abstract, Provider Social History Tobacco Use Types [...] on filedocumented in this encounter Care Teams Collector Of Port Relationship Specialty Start Date End Date Lucía Kohler MD [address] [place] [address]69 PCP - General 03/28/00 09/26/17 Sabi Natarajan MD [address] [place] [address] 60968 PCP - General Internal Medicine 09/27/17 01/29/18 Sherita Washburn MD [address] [place] [address] PCP - General Internal Medicine 01/30/18 documented as of this encounter
--- OUTSIDE RECORDS SUMMARY | 2025-07-27 14:34 | XMS_ITS | Encounter Summary ---
Author Organization [facility] Address [address] [place] [address] Care Team Providers Care Driver License Reviewing Officer Name Role Phone Lucía Kohler MD Primary Care Provider Sabi Natarajan MD Primary Care Provider Sherita Stubbs MD Primary Care Provider Unavaila ble Reason for Visit * Reason Onset Date Comments refill request 01/27/2016 Encounter Details Date Type Department Care Team Description 01/27/2016 Refill Adult Medicine [facility] [address] [place] [address] [phone] Lucía Kohler MD [address] [place] [address] [phone] refill request Social History Tobacco Use Types [...] NO Patients current insurance carrier is: Payor: [employer] FFS / Plan: [employer] PLUS PLAN / Product Type: MEDICAID RISK documented in this encounter Plan of Treatment Not on file documented as of this encounter Visit Diagnoses Not on filedocumented in this encounter Care Teams Driver License Reviewing Officer Relationship Specialty Start Date End Date Lucía Kohler MD [address] [place] [address] PCP - General 03/28/00 09/26/17 Sabi Natarajan MD [address] [place] [address] 60159 PCP - General Internal Medicine 09/27/17 01/29/18 Sherita Washburn MD [address] [place] [address] PCP - General Internal Medicine 01/30/18 documented as of this encounter
--- OUTSIDE RECORDS SUMMARY | 2025-07-27 14:34 | XMS_ITS | Encounter Summary ---
Author Organization [facility] Address [address] [place] [address] Care Team Providers Care Engineering Project Designer Name Role Phone Sherita Washburn MD Primary Care Provider Unavaila ble Reason for Visit * Reason Onset Date Comments Gynecological Problem 05/01/2018 Encounter Details Date Type Department Care Team Description 05/01/2018 Telephone [facility] [address] [place], [place] [phone] Anisa Sweet CNM Gynecological Problem Social History [...] filedocumented in this encounter Care Teams Engineering Project Designer Relationship Specialty Start Date End Date Sherita Washburn MD PCP - General Internal Medicine 01/30/18 documented as of this encounter
--- OUTSIDE RECORDS SUMMARY | 2025-07-27 14:34 | XMS_ITS | Encounter Summary ---
Author Organization [facility] Address [address] [place] [address] Care Team Providers Care Legal Administrative Assistant Name Role Phone Lucía Kohler MD Primary Care Provider [phone] Sabi Natarajan MD Primary Care Provider Sherita Stubbs MD Primary Care Provider Unavaila ble Reason for Visit * Reason Comments E-prescribe Rx Request Encounter Details Date Type Department Care Team Description 03/22/2016 Refill Adult Medicine [address] [address] Cyril Millan PA-C E-prescribe Rx Request Social [...] encounter Miscellaneous Notes * Telephone Encounter - Nikki Burnham M.A. - 03/23/2016 11:12 AM EDT Is this for the tizandine? * Telephone Encounter - Cyril Millan PA-C - 03/23/2016 11:02 AM EDT What is this? estrada * Telephone Encounter - Elli Montano L.P.N. - 03/23/2016 9:12 AM EDT Last written 03/09/16 #42 * Telephone Encounter - Rox Shrestha - 03/23/2016 8:50 AM EDT Patient would like script to be: E-PRESCRIBED/FAXED TO PHARMACY WHEN WAS THE PATIENT'S LAST APPOINTMENT IN ADULT MEDICINE? 02/19/16 WHEN WAS THE LAST TIME THE PATIENT SAW THEIR PCP? Same as above Does patient have an upcoming appointment? Yes 03/23/16 (THE MEDICATION REQUESTED IS ON THE MED LIST ABOVE) All of the medications requested were on the CURRENT MEDS list Did you check the Pharmacy information above?: YES Patient wants: 30 -day supply Is this a mail order prescription request ? NO Patients current insurance carrier is: Payor: [employer] FFS / Plan: [employer] CARE PLUS PLAN / Product Type: MEDICAID RISK documented in this encounter Plan of Treatment Not on file documented as of this encounter Visit Diagnoses Not on filedocumented in this encounter Care Teams Legal Administrative Assistant Relationship Specialty Start Date End Date Lucía Kohler MD [address] [place] [address] PCP - General 03/28/00 09/26/17 Sabi Natarajan MD [address] [place] [address] PCP - General Internal Medicine 09/27/17 01/29/18 Sherita Washburn MD [address] [place], [place] [phone] PCP - General Internal Medicine 01/30/18 documented as of this encounter
--- OUTSIDE RECORDS SUMMARY | 2025-07-27 14:34 | XMS_ITS | Encounter Summary ---
Author Organization [facility] Address [address] [place] [address] Care Team Providers Care Data Reduction Technician Name Role Phone Sherita Washburn MD Primary Care Provider Unavaila ble Reason for Visit * Reason Comments E-prescribe Rx Request Encounter Details Date Type Department Care Team Description 04/21/2019 Refill OBGYN - [facility] [address] [place], [place] [id number] Shanelle Oropeza CNM E-prescribe Rx Request Social [...] EDT WHEN WAS THE PATIENTS LAST ANNUAL HSE ADVISOR EXAM? 03 29 18 Does patient have [...] the end of the day? YES Payor: [facility] / Plan: [facility] / Product Type: MEDICAID RISK documented in this encounter Plan of Treatment Not on file documented as of this encounter Visit Diagnoses Not on filedocumented in this encounter Care Teams Data Reduction Technician Relationship Specialty Start Date End Date Sherita Washburn MD PCP - General Internal Medicine 01/30/18 documented as of this encounter
--- OUTSIDE RECORDS SUMMARY | 2025-07-27 14:34 | XMS_ITS | Encounter Summary ---
Author Organization [facility] Address [address] [place] [address] Care Team Providers Care Typewriter Assembly And Parts Inspector Name Role Phone Lucía Kohler MD Primary Care Provider [phone] Sabi Natarajan MD Primary Care Provider Sherita Stubbs MD Primary Care Provider Ellie moreno Encounter Details Date Type Department Care Team Description 06/23/2016 Telephone Adult Medicine [address] [address] Lucía Kohler MD [address] [place] [address] 17801 Social History Tobacco Use Types Packs/Day Years [...] on filedocumented in this encounter Care Teams Typewriter Assembly And Parts Inspector Relationship Specialty Start Date End Date Lucía Kohler MD [address] [place] [address] 15491 PCP - General 03/28/00 09/26/17 Sabi Natarajan MD [address] [place] [address] 44271 PCP - General Internal Medicine 09/27/17 01/29/18 Sherita Washburn MD [address] [place] [address] 77358 PCP - General Internal Medicine 01/30/18 documented as of this encounter
--- OUTSIDE RECORDS SUMMARY | 2025-07-27 14:34 | XMS_ITS | Encounter Summary ---
Author Organization [facility] Address [address] [place] [address] Care Team Providers Care Lounge Car Attendant Name Role Phone Lucía Kohler MD Primary Care Provider [phone] Sabi Natarajan MD Primary Care Provider Sherita Stubbs MD Primary Care Provider Ellie moreno Encounter Details Date Type Department Care Team Description 09/07/2017 Plant Assigner Report Medical Records [address] [place] [id number] Abstract, Provider Social History Tobacco Use Types [...] on filedocumented in this encounter Care Teams Lounge Car Attendant Relationship Specialty Start Date End Date Lucía Kohler MD [address] [place] [address] PCP - General 03/28/00 09/26/17 Sabi Natarajan MD [address] [place] [address] 32819 PCP - General Internal Medicine 09/27/17 01/29/18 Sherita Washburn MD [address] [place] [address] 79889 PCP - General Internal Medicine 01/30/18 documented as of this encounter
--- OUTSIDE RECORDS SUMMARY | 2025-07-27 14:34 | XMS_ITS | Encounter Summary ---
Author Organization [facility] [place] [facility] Address [address] [place] [address] Care Team Providers Care Corporate Strategist Name Role Phone Lucía Kohler MD Primary Care Provider [phone] Sabi Natarajan MD Primary Care Provider Sherita Stubbs MD Primary Care Provider Ellie moreno Encounter Details Date Type Department Care Team Description 04/29/2017 PNO Controlled Substance Contract Medical Records [address] [place] [address] Abstract, Provider Social History Tobacco Use Types [...] on filedocumented in this encounter Care Teams Corporate Strategist Relationship Specialty Start Date End Date Lucía Kohler MD [address] [place] [address] 19807 PCP - General 03/28/00 09/26/17 Sabi Natarajan MD [address] [place] [address] PCP - General Internal Medicine 09/27/17 01/29/18 Sherita Washburn MD [address] [place] [address]651 PCP - General Internal Medicine 01/30/18 documented as of this encounter
--- OUTSIDE RECORDS SUMMARY | 2025-07-27 14:34 | XMS_ITS | Encounter Summary ---
Author Organization [facility] Address [address] [place] [address] Care Team Providers Care Pipe Fitter Supervisor Maintenance Name Role Phone Lucía Kohler MD Primary Care Provider [phone] Sabi Natarajan MD Primary Care Provider Sherita Stubbs MD Primary Care Provider Unavaila ble Reason for Visit * Reason Onset Date Comments Flu Vaccine 08/27/2016 Encounter Details Date Type Department Care Team Description 08/27/2016 Telephone Adult Medicine [facility] [address] [place], [place] [phone] Lucía Kohler MD [address] [place], [place] [phone] Flu Vaccine Social History Tobacco Use Types Packs/Day Years Used Date Smoking Tobacco: Some Days Cigarettes Last attempted to quit: 11/27/2015 Smokeless Tobacco: Never Comments:1 cigarette once in awhile Alcohol Use Standard Drinks/Week Comments Yes 0.8 (1 standard drink = 0.6 oz p ure alcohol) socially Sex Assigned at Date Recorded Not on file documented as of this encounter Miscellaneous Notes * Telephone Encounter - Charmaine Reyes - 08/27/2016 5:37 PM EDT Pt seen here yesterday and had flu shot. States left upper arm is sore and pink with small lump. Denies any swelling of throat, swelling of lips or difficulty breathing. States she donated blood today and did not have a fever. Denies rash. Pt is A&O x 3, speech is clear and appropriate, able to speak in full sentences, denies CP/SOB,dizziness/weakness, no changes to CMS, no swelling, no N/V/D/Fever (temperature not taken), abdomennon tender, able to eat/drink, able to void, pt reports being able to ambulate with steady gate. Advised home care following the immunization reactions protocol. RN reinforced telephone consultation and advice. Reviewed with patient the signs and symptoms to watch for that would require immediate attention. If symptoms change, worsen or increase in intensity, to call office back immediately orgo to the ER/call 911. Pt verbalized understanding and agreed with plan. * Telephone Encounter - Regine Hernandez - 08/27/2016 3:48 PM EDT Symptoms patient is presenting: Redness where the flu shot was and a lump and sore. If pain or injury related was it due to an accident at work or from a motor vehicle accident? NO If yes, gather 3rd alliance party insurance information Date of accident/Injury: How long has patient had these symptoms?: Got the shot 08/26/16 11 am sore last night PCP: Lucía Kohler Payor: [employer] FFS / Plan: FFS HMO $0 [employer] [id number] / Product Type: MEDICAID RISK documented in this encounter Plan of Treatment Not on file documented as of this encounter Visit Diagnoses Not on filedocumented in this encounter Care Teams Pipe Fitter Supervisor Maintenance Relationship Specialty Start Date End Date Lucía Kohler MD [address] [place] [address] PCP - General 03/28/00 09/26/17 Sabi Natarajan MD [address] [place] [address] 227[address] PCP - General Internal Medicine 09/27/17 01/29/18 Sherita Washburn MD [address] [place] [address]017 PCP - General Internal Medicine 01/30/18 documented as of this encounter
--- OUTSIDE RECORDS SUMMARY | 2025-07-27 14:34 | XMS_ITS | Encounter Summary ---
Author Organization [facility] Address [address] [place] [address] Care Team Providers Care Assessment Specialist Name Role Phone Lucía Kohler MD Primary Care Provider [phone] Sabi Natarajan MD Primary Care Provider Sherita Stubbs MD Primary Care Provider Ellie moreno Encounter Details Date Type Department Care Team Description 07/13/2017 Telephone Medicine/Pediatrics - [address] [phone] Lucía Kohler MD [address] [place] [address] Social History Tobacco Use Types Packs/Day Years [...] on filedocumented in this encounter Care Teams Assessment Specialist Relationship Specialty Start Date End Date Lucía Kohler MD [address] [place] [address] PCP - General 03/28/00 09/26/17 Sabi Natarajan MD [address] [place] [address] 667[address] PCP - General Internal Medicine 09/27/17 01/29/18 Sherita Washburn MD [address] [place] [address] PCP - General Internal Medicine 01/30/18 documented as of this encounter
--- OUTSIDE RECORDS SUMMARY | 2025-07-27 14:34 | XMS_ITS | Encounter Summary ---
Author Organization [facility] Address [address] [place] [address] Care Team Providers Care Boiler Tester Name Role Phone Lucía Kohler MD Primary Care Provider Sabi Natarajan MD Primary Care Provider Sherita Stubbs MD Primary Care Provider Ellie moreno Encounter Details Date Type Department Care Team Description 10/15/2015 MACHINE PACKAGE SEALER/[facility] Report Medical Records [address] [place] [address] Abstract, Provider Social History Tobacco Use Types [...] filedocumented in this encounter Care Teams Boiler Tester Relationship Specialty Start Date End Date Lucía Kohler MD [address] [place] [address] PCP - General 03/28/00 09/26/17 Sabi Natarajan MD [address] [place] [address] 480[address] PCP - General Internal Medicine 09/27/17 01/29/18 Sherita Washburn MD [address] [place] [address] PCP - General Internal Medicine 01/30/18 documented as of this encounter
--- OUTSIDE RECORDS SUMMARY | 2025-07-27 14:34 | XMS_ITS | Encounter Summary ---
Author Organization [facility] Address [address] [place] [address] Care Team Providers Care Pot Washer Name Role Phone Lucía Kohler MD Primary Care Provider [phone] Sabi Natarajan MD Primary Care Provider Sherita Stubbs MD Primary Care Provider Ellie moreno Encounter Details Date Type Department Care Team Description 09/08/2017 House Cleaner Supervisor Report Medical Records [address] [place] [address] Cy Guido, PA-C [address] [place] [address] Social History Tobacco Use Types Packs/Day Years [...] on filedocumented in this encounter Care Teams Pot Washer Relationship Specialty Start Date End Date Lucía Kohler MD [address] [place] [address] PCP - General 03/28/00 09/26/17 Sabi Natarajan MD [address] [place] [address] PCP - General Internal Medicine 09/27/17 01/29/18 Sherita Washburn MD [address] [place] [address] PCP - General Internal Medicine 01/30/18 documented as of this encounter
--- OUTSIDE RECORDS SUMMARY | 2025-07-27 14:34 | XMS_ITS | Encounter Summary ---
Author Organization [facility] Address [address] [place] [address] Care Team Providers Care Adult Protective Caseworker Name Role Phone Lucía Kohler MD Primary Care Provider [phone] Sabi Natarajan MD Primary Care Provider Sherita Stubbs MD Primary Care Provider Unavaila ble Reason for Visit * Reason Comments E-prescribe Rx Request Encounter Details Date Type Department Care Team Description 10/22/2015 Refill OBGYN - [facility] [address] [place] [address] [phone] Aurora Cohen MD E-prescribe Rx Request Social [...] - 10/28/2015 4:12 PM EST Scheduled in [place] with dr diaz per patient * Telephone Encounter - Deana Brooke - 10/28/2015 3:57 PM EST Left message to schedule ag documented in this encounter Plan of Treatment Not on file documented as of this encounter Visit Diagnoses Not on filedocumented in this encounter Care Teams Adult Protective Caseworker Relationship Specialty Start Date End Date Lucía Kohler MD [address] [place] [address] PCP - General 03/28/00 09/26/17 Sabi Natarajan MD [address] [place] [address] PCP - General Internal Medicine 09/27/17 01/29/18 Sherita Washburn MD [address] [place] [address] PCP - General Internal Medicine 01/30/18 documented as of this encounter
--- OUTSIDE RECORDS SUMMARY | 2025-07-27 14:34 | XMS_ITS | Encounter Summary ---
Author Organization [facility] Address [address] [place] [address] Care Team Providers Care Hospice Care Consultant Name Role Phone Lucía Kohler MD Primary Care Provider [phone] Sabi Natarajan MD Primary Care Provider Sherita Stubbs MD Primary Care Provider Unavaila ble Reason for Visit * Reason Onset Date Comments Provider Call Back 05/09/2017 Encounter Details Date Type Department Care Team Description 05/09/2017 Telephone Physiatry - [address] [address] Rajesh Muhammad DO Provider Call Back Social [...] that she did end up going to [facility] last night and she got a script for oxycodone 10 mg, 10 pills only. She will keep calling to check for cancellations with Dr Muhammad. 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 * Telephone Encounter - Sandee Chance M.A. [...] when she emptied the bag on the director ship she felt like something was ripping and [...] on filedocumented in this encounter Care Teams Hospice Care Consultant Relationship Specialty Start Date End Date Lucía Kohler MD [address] [place] [address] PCP - General 03/28/00 09/26/17 Sabi Natarajan MD [address] [place] [address] 08402 PCP - General Internal Medicine 09/27/17 01/29/18 Sherita Washburn MD [address] [place] [address] PCP - General Internal Medicine 01/30/18 documented as of this encounter
--- OUTSIDE RECORDS SUMMARY | 2025-07-27 14:34 | XMS_ITS | Clinical Summary ---
Author Organization [facility] Address [address] [place] [address] Care Team Providers Care Epic Beacon Analyst Name Role Phone Sherita Washburn MD Primary Care Provider Unavaila ble Allergies Active Allergy Reactions Severity Noted Date Comments Amoxicillin Trihydrate Hives/Urticaria 10/26/20 05 Ciprofloxacin Hydrochloride 10/26/20 05 racing H.B. Eszopiclone OTHER 03/12/2016 Heart racing, body shakes and kept her awake Piroxicam Headaches 10/13/2015 Sulfa Drugs Itching/Pruritus 10/26/2005 Medications Medication Sig Dispensed Refills Start Date End Date Status DiphenhydrAMINE HCl (BENADRYL) 25 MG TABS Take 2 Tabs by mouth at bedtime as needed. 0 Active gabapentin (NEURONTIN) 600 MG tablet Take 600 mg by mouth 3 times daily as needed. Prn 0 Active ibuprofen (ADVIL,MOTRIN) 800 MG tablet Take 800 mg by mouth every 8 hours as needed. 0 Active omeprazole (PRILOSEC) 20 MG capsule Take 20 mg by mouth daily. Prn 0 Active norethindrone (MICRONOR) 0.35 MG tablet Take 1 Tab by mouth daily. 28 Tab 0 04/24/2019 Active clonazepam (KLONOPIN) 1 MG tablet Take 1 mg by mouth 3 times daily as needed. 0 Active propranolol (INDERAL) 40 MG tablet 1 Tab 2 times daily. 0 04/18/2020 Active busPIRone (BUSPAR) 30 MG tablet Take 30 mg by mouth 2 Times Daily. 0 04/26/2020 Active tramadol (ULTRAM) 50 MG tabletIndications:Dayana mbar sprain, subsequent encounter Take 1 Tab by mouth every 4 hours as needed for Pain (post procedural) for up to 7 days. 42 Tab 0 04/30/2020 Active dexamethasone (DECADRON) 10 MG/ML injectionIndications :Lumbar radiculitis 1 mL by Other route once for 1 dose. Epidural injection 1 Vial 0 04/30/2020 Active tizanidine (ZANAFLEX) 4 MG tabletIndications:Dayana mbar radiculitis,Lumbar paraspinal muscle spasm,Chronic bilateral low back pain with left-sided sciatica TAKE 1 AND 1/2 TABLETS BY MOUTH 4 TIMES A DAY NEEDED FOR SPASMS 180 tablet 0 06/04/2021 Active Active Problems Problem Noted Date Torn rotator cuff 09/29/2017 Overview: Surgical repair 08/2017 Family history of breast cancer in femal e 08/28/2015 Obese 06/07/2014 Back pain 05/30/2014 Overview: chronic Metabolic syndrome 09/25/2013 Agoraphobia with panic disorder 01/01/20 10 GERD (gastroesophageal reflux disease) 1 Overview: 01/27/2017: EGD visually normal on H2 john treatment. Anxiety 10/26/2005 Overview: meds from psychiatry Depression 10/26/2005 ESSENTIAL TREMOR 10/26/2005 Immunizations Name Administration Dates Next Due Influenza (> 6 Months) 08/26/2016,2012,10/26/2012, 011,11/30/2010 Influenza Flu (PT Reported) 08/20/2017 PPD-RBMG 08/08/2013 TD (STATE SUPPLIED FOR ADULT S AND CHILDREN) 10/06/2004 Tdap 10/26/2012 Family History Medical History Relation Name Comments CA Lung Aunt maternal side Cancer of the Lung Father 62 [place] Maternal Grandfather CA Breast Maternal Grandmother CA Colon Maternal Grandmother CA Ovarian Maternal Grandmother Hypertension Mother elevated choles terol, emphysema Suicide Paternal Grandfather Bipolar Disorder Sister CA Lung Uncle paternal side CA Prostate Negative Hx Uterine Cancer Negative Hx Relation Name Status Comments Aunt Father Maternal Grandfather Maternal Grandmother Mother Alive Paternal Grandfather Sister Alive Uncle Social History Tobacco Use Types Packs/Day Years Used Date Smoking Tobacco: Some Days Cigarettes Started: 1996; Last attempted to quit: 12/12/2016 Smokeless Tobacco: Never Comments:1 cigarette once in awhile Alcohol Use Standard Drinks/Week Comments Yes 0.8 (1 standard drink = 0.6 oz p ure alcohol) q drink every 3 mos Sex Assigned at Date Recorded Not on file Last Filed Vital Signs Vital Sign Reading Time Taken Comments Blood Pressure 120/80 04/30/2020 9:55 AM EDT Pulse 72 04/30/2020 9:55 AM EDT Temperature 36.8 C (98.3 F) 09/19/2017 1:02 PM EDT Respiratory Rate 16 04/30/2020 9:55 AM EDT Oxygen Saturation 100% 02/20/2017 10: 06 AM EDT Inhaled Oxygen Concentration - - Weight 103.6 kg (228 lb 6.4 oz) 08/30/2019 3:03 PM EDT Height 165.1 cm (5' 5 ) 08/30/2019 3:03 PM EDT Body Mass Index 38.01 08/30/2019 3:03 PM EDT Plan of Treatment Health Maintenance Due Date Last Done Comments Covid-19 Vaccine (#1) 06/29/1978 BASELINE HEALTH EXAM 40-64 12/30/201709/28, 09/28/2016, 08/28/2015, Additional history exists MAMMOGRAM 02/03/2019 02/03/2018 CERVICAL CANCER SCREENING 12/01/20202015, 09/25/2013, 05/16/2012, Additional history exists CHOLESTEROL SCREENING 09/28/2021 09/28/2016 , 08/28/2015, 06/07/2014, Additional history exists DTAP/TDAP/TD (2 - Td or Tdap) 10/26/2022 10/26/2012, 10/06/2004 BMI CHECK/ADVISE 11/28/2024 05/13/2020, , 08/30/2019, Additional history exists DEPRESSION SCREENING/FOLLOWUP 11/28/2024, 02/19/2016, 01/21/2014, Additional history exists SOCIAL NEEDS SCREENING 11/28/2024 INFLUENZA (#1) 2025 08/20/2017, 07/30, 08/26/2016, Additional history exists PNEUMOCOCCAL VACCINE FOR HIG H RISK PATIENTS (#1) 2042 Care Teams Epic Beacon Analyst Relationship Specialty Start Date End Date Sherita Washburn MD PCP - General Internal Medicine 01/30/18
--- OUTSIDE RECORDS SUMMARY | 2025-07-27 14:34 | XMS_ITS | Encounter Summary ---
Author Organization [facility] Address [address] [place] [address] Care Team Providers Care Plate Mill Hand Name Role Phone Lucía Kohler MD Primary Care Provider [phone] Sabi Natarajan MD Primary Care Provider Sherita Stubbs MD Primary Care Provider Unavaila ble Reason for Visit * Reason Onset Date Comments Genetic Counseling 10/06/2015 Encounter Details Date Type Department Care Team Description 10/06/2015 Telephone Genetic & Disease Counseling - [address] [address] Cassie Bar PA-C Genetic Counseling Social History Tobacco Use Types Packs/Day Years Used Date Smoking Tobacco: Former Cigarettes Q uit: 11/28/2010 Smokeless Tobacco: Never Comments:1-2 on weekends Alcohol Use Standard Drinks/Week Comments Yes 0.8 (1 standard drink = 0.6 oz p ure alcohol) socially Sex Assigned at Date Recorded Not on file documented as of this encounter Miscellaneous Notes * Telephone Encounter - Karla Key - 10/06/2015 11:18 AM EST FYI ONLY. Pt declined to schedule genetic counseling visit, she will discuss at next visit. I am removing this pt's order from the genetic testing schedule. Order expires 08/28/16,[facility]. documented in this encounter Plan of Treatment Not on file documented as of this encounter Visit Diagnoses Not on filedocumented in this encounter Care Teams Plate Mill Hand Relationship Specialty Start Date End Date Lucía Kohler MD [address] [place], [place] [phone] PCP - General 03/28/00 09/26/17 Sabi Natarajan MD [address] [place] [address] PCP - General Internal Medicine 09/27/17 01/29/18 Sherita Washburn MD [address] [place] [address] PCP - General Internal Medicine 01/30/18 documented as of this encounter
--- OUTSIDE RECORDS SUMMARY | 2025-07-27 14:34 | XMS_ITS | Encounter Summary ---
Author Organization [facility] Address [address] [place] [address] Care Team Providers Care Mobile Nurse Name Role Phone Lucía Kohler MD Primary Care Provider [phone] Sabi Natarajan MD Primary Care Provider Sherita Stubbs MD Primary Care Provider Ellie moreno Encounter Details Date Type Department Care Team Description 07/21/2017 Director Of Quality Improvement Report Medical Records [address] [place] [address] Cy Guido, PA-C [address] [place] [address] Social History Tobacco Use Types Packs/Day Years [...] on filedocumented in this encounter Care Teams Mobile Nurse Relationship Specialty Start Date End Date Lucía Kohler MD [address] [place] [address] PCP - General 03/28/00 09/26/17 Sabi Natarajan MD [address] [place] [address] 81436 PCP - General Internal Medicine 09/27/17 01/29/18 Sherita Washburn MD [address] [place] [address] PCP - General Internal Medicine 01/30/18 documented as of this encounter
--- OUTSIDE RECORDS SUMMARY | 2025-07-27 14:34 | XMS_ITS | Encounter Summary ---
Author Organization [facility] Address [address] [place] [address] Care Team Providers Care Lan Specialist Name Role Phone Sherita Washburn MD Primary Care Provider Ellie moreno Encounter Details Date Type Department Care Team Description 07/27/2019 [facility] Medical Records [address] [place] [phone] Abstract, Provider Social History Tobacco Use Types [...] on filedocumented in this encounter Care Teams Lan Specialist Relationship Specialty Start Date End Date Sherita Washburn MD PCP - General Internal Medicine 01/30/18 documented as of this encounter
--- OUTSIDE RECORDS SUMMARY | 2025-07-27 14:34 | XMS_ITS | Encounter Summary ---
Author Organization [facility] Address [address] [place] [address] Care Team Providers Care Drug Abuse Counselor Name Role Phone Lucía Kohler MD Primary Care Provider [phone] Sabi Natarajan MD Primary Care Provider Sherita Stubbs MD Primary Care Provider Ellie moreno Encounter Details Date Type Department Care Team Description 05/25/2012 Controlled Substance Contract with Plan Medical Records [address] [place] [id number] Abstract, Provider Social History Tobacco Use Types [...] on filedocumented in this encounter Care Teams Drug Abuse Counselor Relationship Specialty Start Date End Date Lucía Kohler MD [address] [place] [address] 28581 PCP - General 03/28/00 09/26/17 Sabi Natarajan MD [address] [place] [address] 70809 PCP - General Internal Medicine 09/27/17 01/29/18 Sherita Washburn MD [address] [place] [address] PCP - General Internal Medicine 01/30/18 documented as of this encounter
--- OUTSIDE RECORDS SUMMARY | 2025-07-27 14:34 | XMS_ITS | Encounter Summary ---
Author Organization [facility] Address [address] [place] [address] Care Team Providers Care Farm Hand Name Role Phone Lucía Kohler MD Primary Care Provider [phone] Sabi Natarajan MD Primary Care Provider Sherita Stubbs MD Primary Care Provider Ellie moreno Encounter Details Date Type Department Care Team Description 05/24/2017 [facility] Medical Records [address] [place] [address] 45789 Abstract, Provider Social History Tobacco Use Types [...] on filedocumented in this encounter Care Teams Farm Hand Relationship Specialty Start Date End Date Lucía Kohler MD [address] [place] [address] 97517 PCP - General 03/28/00 09/26/17 Sabi Natarajan MD [address] [place] [address] 50401 PCP - General Internal Medicine 09/27/17 01/29/18 Sherita Washburn MD [address] [place] [address] 83348 PCP - General Internal Medicine 01/30/18 documented as of this encounter
--- OUTSIDE RECORDS SUMMARY | 2025-07-27 14:34 | XMS_ITS | Encounter Summary ---
Author Organization [facility] Address [address] [place] [address] Care Team Providers Care Reaming Press Operator Name Role Phone Lucía Kohler MD Primary Care Provider [phone] Sabi Natarajan MD Primary Care Provider Sherita Stubbs MD Primary Care Provider Unavaila ble Reason for Visit * Reason Onset Date Comments medication problems 02/18/2014 Encounter Details Date Type Department Care Team Description 02/18/2014 Telephone Adult Medicine [address] [phone] Cyril Millan PA-C medication problems Social History Tobacco Use Types [...] encounter Miscellaneous Notes * Telephone Encounter - Mica Steve - 02/18/2014 1:22 PM EDT Patient has a Aragon allergy Is this ok to fill The indomethacin ? pharamcy is calling the [facility] documented in this encounter Plan of Treatment Not on file documented as of this encounter Visit Diagnoses Not on filedocumented in this encounter Care Teams Reaming Press Operator Relationship Specialty Start Date End Date Lucía Kohler MD [address] [place] [address] PCP - General 03/28/00 09/26/17 Sabi Natarajan MD [address] [place] [address] 93225 PCP - General Internal Medicine 09/27/17 01/29/18 Sherita Washburn MD [address] [place] [address] 14621 PCP - General Internal Medicine 01/30/18 documented as of this encounter
--- OUTSIDE RECORDS SUMMARY | 2025-07-27 14:34 | XMS_ITS | Encounter Summary ---
Author Organization [facility] Address [address] [place] [address] Care Team Providers Care Stove Carriage Operator Name Role Phone Sherita Washburn MD Primary Care Provider Ellie moreno Encounter Details Date Type Department Care Team Description 04/04/2018 [facility] Medical Records [address] [place] [address]22 Abstract, Provider Social History Tobacco Use Types [...] on filedocumented in this encounter Care Teams Stove Carriage Operator Relationship Specialty Start Date End Date Sherita Washburn MD PCP - General Internal Medicine 01/30/18 documented as of this encounter
--- OUTSIDE RECORDS SUMMARY | 2025-07-27 14:35 | XMS_ITS | Encounter Summary ---
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 - [address] [id number] Anisa Sweet CNM refill request Social History [...] NO Patients current insurance carrier is: Payor: [employer] FFS / Plan: FFS HMO $0 [employer] [id number] / Product Type: MEDICAID RISK documented in this encounter Plan of Treatment Not on file documented as of this encounter Visit Diagnoses Not on filedocumented in this encounter Care Teams Electrical Technology Instructor Relationship Specialty Start Date End Date Lucía Kohler MD [address] [place], [place] [phone] PCP - General 03/28/00 09/26/17 Sabi Natarajan MD [address] [place], [place] [phone] PCP - General Internal Medicine 09/27/17 01/29/18 Sherita Washburn MD [address] [place], [place] [phone] PCP - General Internal Medicine 01/30/18 documented as of this encounter
--- OUTSIDE RECORDS SUMMARY | 2025-07-27 14:35 | XMS_ITS | Encounter Summary ---
Author Organization [facility] Address [address] [place] [address] Care Team Providers Care Soap Chipper Name Role Phone Lucía Kohler MD Primary Care Provider [phone] Sabi Natarajan MD Primary Care Provider Sherita Stubbs MD Primary Care Provider Ellie moreno Encounter Details Date Type Department Care Team Description 04/23/2010 Night Triage Doc Medical Records [address] [place] [address] 42163 Abstract, Provider Social History Tobacco Use Types [...] on filedocumented in this encounter Care Teams Soap Chipper Relationship Specialty Start Date End Date Lucía Kohler MD [address] [place] [address] 40792 PCP - General 03/28/00 09/26/17 Sabi Natarajan MD [address] [place] [address] 67476 PCP - General Internal Medicine 09/27/17 01/29/18 Sherita Washburn MD [address] [place] [address] 03092 PCP - General Internal Medicine 01/30/18 documented as of this encounter
--- OUTSIDE RECORDS SUMMARY | 2025-07-27 14:35 | XMS_ITS | Encounter Summary ---
Author Organization [facility] Address [address] [place] [address] Care Team Providers Care Plaster Helper Name Role Phone Lucía Kohler MD Primary Care Provider [phone] Sabi Natarajan MD Primary Care Provider Sherita Stubbs MD Primary Care Provider Unavaila ble Reason for Visit * Reason Comments E-prescribe Rx Request Encounter Details Date Type Department Care Team Description 12/16/2016 Refill Adult Medicine [address] [phone] Cyril Millan PA-C E-prescribe Rx Request Social [...] * Telephone Encounter - Maite Garcia - 12/16/2016 3:04 PM EST Patient would like script to be: E-PRESCRIBED/FAXED TO PHARMACY WHEN WAS THE PATIENT'S LAST APPOINTMENT IN ADULT MEDICINE? 12/07/16 WHEN WAS THE LAST TIME THE PATIENT SAW THEIR PCP? 08/26/16 Does patient have an upcoming appointment? Yes 02/23/17 (THE MEDICATION REQUESTED IS ON THE MED LIST ABOVE) All of the medications requested were on the CURRENT MEDS list Did you check the Pharmacy information above?: YES Patient wants: 30 -day supply Is this a mail order prescription request ? NO Patients current insurance carrier is: Payor: [employer] FFS / Plan: FFS HMO $0 [employer] [id number] / Product Type: MEDICAID RISK documented in this encounter Plan of Treatment Not on file documented as of this encounter Visit Diagnoses Not on filedocumented in this encounter Care Teams Plaster Helper Relationship Specialty Start Date End Date Lucía Kohler MD [address] [place] [address] 41595 PCP - General 03/28/00 09/26/17 Sabi Natarajan MD [address] [place] [address] 52275 PCP - General Internal Medicine 09/27/17 01/29/18 Sherita Washburn MD [address] [place] [address] 33078 PCP - General Internal Medicine 01/30/18 documented as of this encounter
--- OUTSIDE RECORDS SUMMARY | 2025-07-27 14:35 | XMS_ITS | Encounter Summary ---
Author Organization [facility] Address [address] [place] [address] Care Team Providers Care Dining Room Server Name Role Phone Lucía Kohler MD Primary Care Provider [phone] Sabi Natarajan MD Primary Care Provider Sherita Stubbs MD Primary Care Provider Unavaila ble Reason for Visit * Reason Comments E-prescribe Rx Request Encounter Details Date Type Department Care Team Description 03/25/2015 Refill Adult Medicine [address] [phone] Lucía Kohler MD [address] [place] [phone] E-prescribe Rx Request Social History Tobacco Use [...] NO Patients current insurance carrier is: Payor: [employer] FFS / Plan: [facility] CARE PLUS PLAN / Product Type: MEDICAID RISK documented in this encounter Plan of Treatment Not on file documented as of this encounter Visit Diagnoses Not on filedocumented in this encounter Care Teams Dining Room Server Relationship Specialty Start Date End Date Lcuía Kohler MD [address] [place] [address] 22040 PCP - General 03/28/00 09/26/17 Sabi Natarajan MD [address] [place] [address] 33915 PCP - General Internal Medicine 09/27/17 01/29/18 Sherita Washburn MD [address] [place] [address] 55441 PCP - General Internal Medicine 01/30/18 documented as of this encounter
--- OUTSIDE RECORDS SUMMARY | 2025-07-27 14:35 | XMS_ITS | Encounter Summary ---
Author Organization [facility] Address [address] [place] [address] Care Team Providers Care Featheredge Machine Operator Name Role Phone Lucía Kohler MD Primary Care Provider [phone] Sabi Natarajan MD Primary Care Provider Sherita Stubbs MD Primary Care Provider Ellie moreno Encounter Details Date Type Department Care Team Description 02/08/2010 Night Triage Doc Medical Records [address] [place] [address] 95458 Abstract, Provider Social History Tobacco Use Types [...] on filedocumented in this encounter Care Teams Featheredge Machine Operator Relationship Specialty Start Date End Date Lucía Kohler MD [address] [place] [address] 51118 PCP - General 03/28/00 09/26/17 Sabi Natarajan MD [address] [place] [address] 64846 PCP - General Internal Medicine 09/27/17 01/29/18 Sherita Washburn MD [address] [place] [address] 92318 PCP - General Internal Medicine 01/30/18 documented as of this encounter
--- OUTSIDE RECORDS SUMMARY | 2025-07-27 14:35 | XMS_ITS | Encounter Summary ---
Author Organization [facility] Address [address] [place] [address] Care Team Providers Care Load Out Worker Name Role Phone Lucía Kohler MD Primary Care Provider [phone] Sabi Natarajan MD Primary Care Provider Sherita Stubbs MD Primary Care Provider Unavaila ble Reason for Visit * Reason Onset Date Comments Sore Throat 04/08/2015 Encounter Details Date Type Department Care Team Description 04/08/2015 Telephone Adult Medicine [facility] [address] [place], [place] [phone] Lucía Kohler MD [address] [place] [address] [phone] Sore Throat Social History Tobacco Use Types [...] on filedocumented in this encounter Care Teams Load Out Worker Relationship Specialty Start Date End Date Lucía Kohler MD [address] [place] [address] 88930 PCP - General 03/28/00 09/26/17 Sabi Natarajan MD [address] [place] [address] 39181 PCP - General Internal Medicine 09/27/17 01/29/18 Sherita Washburn MD [address] [place] [address] PCP - General Internal Medicine 01/30/18 documented as of this encounter
--- OUTSIDE RECORDS SUMMARY | 2025-07-27 14:35 | XMS_ITS | Encounter Summary ---
Author Organization [facility] Address [address] [place] [address] Care Team Providers Care Farm Laborer Name Role Phone Lucía Kohler MD Primary Care Provider [phone] Sabi Natarajan MD Primary Care Provider Sherita Stubbs MD Primary Care Provider Unavaila ble Reason for Visit * Reason Onset Date Comments medication problems 10/06/2016 medication problems 10/09/2016 Encounter Details Date Type Department Care Team Description 10/06/2016 Telephone Adult Medicine [address] [phone] Lucía Kohler MD [address] [place] [address] [phone] medication problems; medication problems Social History Tobacco [...] the 6 mg tizanidine to the prior [employer] pool for Tuesday. FYI only to Cyril [...] Radha Millan. Please have Cyril call patient [phone]. Patient needsa new script for tizanidine (ZANAFLEX) [...] Who is patients PCP?: Lucía Kohler Payor: [facility] FFS / Plan: FFS HMO $0 [employer] [id number] / Product Type: MEDICAID RISK documented in this encounter Plan of Treatment Not on file documented as of this encounter Visit Diagnoses Diagnosis Acute midline low back pain without sciatica- Primary documented in this encounter Care Teams Farm Laborer Relationship Specialty Start Date End Date Lucía Kohler MD [address] [place] [address] 39354 PCP - General 03/28/00 09/26/17 Sabi Natarajan MD [address] [place] [address] 69210 PCP - General Internal Medicine 09/27/17 01/29/18 Sherita Washburn MD [facility] [place] [address] PCP - General Internal Medicine 01/30/18 documented as of this encounter
--- OUTSIDE RECORDS SUMMARY | 2025-07-27 14:35 | XMS_ITS | Encounter Summary ---
Author Organization [facility] Address [address] [place] [address] Care Team Providers Care Macaroni Maker Name Role Phone Lucía Kohler MD Primary Care Provider [phone] Sabi Natarajan MD Primary Care Provider Sherita Stubbs MD Primary Care Provider Unavaila ble Reason for Visit * Reason Onset Date Comments hospital follow up 11/30/2016 Encounter Details Date Type Department Care Team Description 11/30/2016 Telephone Adult Medicine [facility] [address] [place], [place] [phone] Lucía Kohler MD [address] [place] [address] [phone] hospital follow up Social History Tobacco Use [...] on filedocumented in this encounter Care Teams Macaroni Maker Relationship Specialty Start Date End Date Lucía Kohler MD [address] [place] [address] 02634 PCP - General 03/28/00 09/26/17 Sabi Natarajan MD [address] [place] [address] 92596 PCP - General Internal Medicine 09/27/17 01/29/18 Sherita Washburn MD [address] [place] [address] 17053 PCP - General Internal Medicine 01/30/18 documented as of this encounter
--- OUTSIDE RECORDS SUMMARY | 2025-07-27 14:35 | XMS_ITS | Encounter Summary ---
Author Organization [facility] Address [address] [place] [address] Care Team Providers Care Apiculturist Name Role Phone Lucía Kohler MD Primary Care Provider [phone] Sabi Natarajan MD Primary Care Provider Sherita Stubbs MD Primary Care Provider Unavaila ble Reason for Visit * Reason Onset Date Comments other 04/15/2017 Encounter Details Date Type Department Care Team Description 04/15/2017 Telephone Medicine/Pediatrics - [place] [address] [place] [phone] Lucía Kohler MD [address] [place] [address] 47061 other Social History Tobacco Use Types Packs/Day [...] on filedocumented in this encounter Care Teams Apiculturist Relationship Specialty Start Date End Date Lucía Kohler MD [address] [place] [address] 57697 PCP - General 03/28/00 09/26/17 Sabi Natarajan MD [address] [place] [address] 73775 PCP - General Internal Medicine 09/27/17 01/29/18 Sherita Washburn MD [address] [place] [address] 88116 PCP - General Internal Medicine 01/30/18 documented as of this encounter
--- OUTSIDE RECORDS SUMMARY | 2025-07-27 14:35 | XMS_ITS | Encounter Summary ---
Author Organization [facility] Address [address] [place] [address] Care Team Providers Care Butadiene Converter Helper Name Role Phone Lucía Kohler MD Primary Care Provider [phone] Sabi Natarajan MD Primary Care Provider Sherita Stubbs MD Primary Care Provider Ellie moreno Encounter Details Date Type Department Care Team Description 10/30/2014 LASER/ELECTRO OPTICS TECHNICIAN/[facility] Report Medical Records [address] [place] [address] [id number] Abstract, Provider Social History Tobacco Use Types [...] on filedocumented in this encounter Care Teams Butadiene Converter Helper Relationship Specialty Start Date End Date Lucía Kohler MD [address] [place] [address] 83458 PCP - General 03/28/00 09/26/17 Sabi Natarajan MD [address] [place] [address] 86801 PCP - General Internal Medicine 09/27/17 01/29/18 Sherita Washburn MD [address] [place] [address] 00206 PCP - General Internal Medicine 01/30/18 documented as of this encounter
== END 2025-07-27 14:35 | disposition home or self-care (01) ==
PROVIDERS: Emergency Provider Emergency Medicine; PCP Internal Medicine
DX: M25.562 Pain in left knee (principal); Z79.899 Other long term (current) drug therapy
CPT/HCPCS: 99281; 99283

== ENCOUNTER 2025-08-05 11:49 | Outpatient (AMB) | payer OTHER, SELFPAY ==
[2025-08-05 11:51] VITALS: BP 106/78; PULSE 89; RESP 18; TEMP 37; O2SAT 96; BMI 46.8
--- NOTE | 2025-08-05 11:51 | A.OFFPC_ITS ---
Vital Signs 08/05/25 11:51 Height 5 ft 5 in Weight 281 lb BMI 46.8 BP 106/78 Blood Pressure Location Rt brachial Position Sitting Respiration 18 Pulse 89 Pulse Source Pulse Oximeter Temp 98.6 F Temp Source Oral Pulse Oximetry (%) 96 Oxygen Delivery Method Room Air Intake Visit Reasons: 3 month Follow up RE Intake Note: Pt is here today for a ER follow up visit from [facility]. Allergies cyclobenzaprine (From Flexeril) Allergy (Severe, Verified 08/05/25 12:52) Constipation Penicillins (PENICILLINS) Allergy (Severe, Verified 08/05/25 11:54) Anaphylaxis amoxicillin (AMOXICILLIN) Allergy (Intermediate, Verified 08/05/25 11:54) HIVES ciprofloxacin (From CIPRO) Allergy (Intermediate, Verified 08/05/25 11:54) HIVES citalopram Allergy (Intermediate, Verified 08/05/25 11:54) sweating, panic attack diclofenac (DICLOFENAC) Allergy (Intermediate, Verified 08/05/25 11:54) HIVES, ITCHING, FLUSHED Sulfa (Sulfonamide Antibiotics) (SULFA(SULFONAMIDE ANTIBIOTICS)) Allergy (Intermediate, Verified 08/05/25 11:54) HIVES trazodone Allergy (Mild, Verified 08/05/25 11:54) increase appetite paroxetine (Paxil) Adverse Reaction (Intermediate, Verified 08/05/25 11:54) stomach upset tizanidine Adverse Reaction (Intermediate, Verified 08/05/25 12:53) PANIC ATTACKS quetiapine (Seroquel) Adverse Reaction (Unknown, Verified 08/05/25 11:54) Increased sweating and weight gain Medication List - Last Reconciled 08/05/25 by Sherita Washburn MD acetaminophen 1,000 mg (2 x 500 mg) PO Q6H PRN alprazolam 1 mg PO TID PRN buspirone 1 tab PO BID escitalopram oxalate 20 mg PO DAILY escitalopram oxalate 5 mg PO DAILY eszopiclone 3 mg PO BEDTIME PRN gabapentin 600 mg PO TID meloxicam 15 mg PO DAILY norethindrone (contraceptive) 0.35 mg PO DAILY omeprazole 20 mg PO DAILY PRN propranolol 60 mg (1.5 x 40 mg) PO BID Tobacco use date assessed: 03/05/25 Dental Screening Dental Screen Date: 08/05/25 Did you have a dental visit in the last 12 months?: Yes Did you have a dental problem in the last 6 months where you did not have access to dental care?: No Was dental information given to patient?: Patient has dentist HPI 3 month Follow up RE HPI Details Pt presents for F/U ER visit. Pt twisted L knee 4 weeks ago and c/o persistent L knee pain worse when walking but also at rest and swelling below patella. Patient has been using crutches to walk. She was prescribed naproxen in the ER with only temporary relief. Knee x-rays showed osteoarthritis mainly in the medial compartment and suprapatellar bursa effusion. 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 Hypertension is controlled on propranolol. Patient complains of chronic back pain and tried baclofen on and off without relief. [facility] Medical History Acute respiratory disease Elevated cholesterol HTN (hypertension) Hand injury Annual physical exam Back pain GERD (gastroesophageal reflux disease) Anxiety Rotator cuff tear Complete tear of left rotator cuff Surgical History Hx of cholecystectomy S/P right rotator cuff repair S/P left rotator cuff repair Family History Mother No problems noted. Father Lung cancer Sister Mental health disorder Social History Housing: House Alcohol intake: former Patient Tobacco Use Status: Former Tobacco user Cigarettes Per Day: 3 e-Cigarette/Vaping Use: Never Used Second Hand Smoke Exposure: No service: No Current occupational status: unemployed Current occupation: Unemployed - Right Handed Cognitive needs: No Hearing needs: No Vision needs: No Questionnaire PHQ-9 Over the last 2 weeks, how often have you been bothered by any of the following problems? 1. Little interest or pleasure in doing things: several days 2. Feeling down, depressed, or hopeless: several days 3. Trouble falling or staying asleep, or sleeping too much: several days 4. Feeling tired or having little energy: several days 5. Poor appetite or overeating: several days 6. Feeling bad about yourself - or that you are a failure or have let yourself or your family down: several days 7. Trouble concentrating on things, such as reading the newspaper or watching television: several days 8. Moving or speaking so slowly that other people could have noticed. Or the opposite - being so fidgety or restless that you have been moving around a lot more than usual: not at all 9. Thoughts that you would be better off or of hurting yourself in some way: not at all Total score: 7 Depression Screening Interpretation: Negative Depression Screening Done: Yes 62840 - PHQ-9 Billing: Yes Source: Developed by Drs. Rigo Villaseñor, Oliva Loyd, Tarik Robledo and colleagues, with an educational keegan from [employer]. Thrive Questionnaire Date Thrive assessed: 03/05/25 I am a: Patient What is your living situation today?: I do not have a steady places to live I am temporarily staying with others Within the past 12 months, did the food you bought not last and you didn't have the money to get more?: I choose not to answer this question Within the past 12 months, did you worry whether your food would run out before you got money to buy more?: Never true Do you have trouble paying for medicines?: No Do you have trouble getting transportation to medical appointments?: Yes Do you have trouble paying your heating and electricity bill?: No Do you have trouble taking care of your child, family member or friend?: Yes Do you have trouble with day-to-day activities such as bathing, preparing meals, shopping, managing finances, etc.?: Yes Are you currently unemployed and looking for a job?: No Are you interested in more education?: No Please select the resources that you would like help with: None Currently or been in a relationship where the following occur: No concerns reported THRIVE Score: 2 AUDIT C Alcohol Use Questionnaire (AUDIT-C) 1. How often do you have a drink containing alcohol?: Never 3. How often do you have six or more drinks on one occasion?: Never Total Score: 0 ASHLEY-7 AMB Questionnaire ASHLEY-7 Date ASHLEY - 7 assessed: 03/05/25 Feeling nervous, anxious, or on edge: 3 = Nearly every day Not being able to stop or control worryin = Nearly every day Worrying too much about different things: 3 = Nearly every day Trouble relaxin = Nearly every day Being so restless that it is hard to sit still: 3 = Nearly every day Becoming easily annoyed or irritable: 3 = Nearly every day Feeling afraid as if something awful might happen: 3 = Nearly every day Total ASHLEY-7 score (0-4 normal; 5-9 mild; 10-14 moderate; 15-21 severe): 21 Source: Developed by Drs. Rigo Villaseñor, Oliva Loyd, Tarik Robledo and colleagues, with an educational keegan from [employer]. Review of Systems Const All systems reviewed & are unremarkable except as noted in HPI and below Card Reports no additional complaints Resp Reports no additional complaints GI Reports no additional complaints Reports no additional complaints Physical exam (Primary Care) Vital Signs: Last Vital Signs Temp 98.6 F 08/05/25 11:51 Pulse 89 08/05/25 11:51 Resp 18 08/05/25 11:51 BP 106/78 08/05/25 11:51 Pulse Ox 96 08/05/25 11:51 Oxygen Delivery Method Room Air 08/05/25 11:51 BMI result Body Mass Index 46.8 Tobacco/Smoking Status: Tobacco use Status Tobacco use date assessed 03/05/25 08/05/25 12:01 Patient Tobacco Use Status Former Tobacco user 08/05/25 12:01 e-Cigarette/Vaping Use Never Used 08/05/25 12:01 PHQ-9: PHQ-9 Score PHQ-9: Total score 7 08/05/25 12:01 Depression Screening Interpretation: Negative Thrive Assessment: Date of Thrive Assessment Date Thrive assessed 03/05/25 08/05/25 12:01 Currently or been in a relationship where the following occur: No concerns reported Const General: no acute distress HENMT Head: Yes normal to inspection Resp Effort & Inspection: normal respiratory effort Auscultation: clear to auscultation bilaterally Cardio Rhythm: regular rhythm Heart sounds: S1 normal heart sound present and S2 normal heart sound present Extrem Other: There is decreased range of motion, medial aspect tenderness and soft tissue swelling in anterior left knee, reproducible tenderness behind left knee no erythema or warmth Coding Level of Care Code Est Pt Level 4 (89345) Diagnoses Injury of meniscus of left knee S83.8X2A Anxiety F41.9 Essential hypertension I10 Additional Codes PHQ-9 - 03667 - PHQ-9 Billing: Yes ([id number]) Assessment & Plan Assessment & Plan (1) Injury of meniscus of left knee: Code(s): S83.8X2A - Sprain of other specified parts of left knee, initial encounter Category: Medical Plan: For the left knee injury not improving with conservative treatment obtain MRI to evaluate for meniscus tear, meloxicam as prescribed patient will be referred to physical therapy. She has an appointment with ortho in 2 weeks (2) Anxiety: Comment: Established with Psychiatry Code(s): F41.9 - Anxiety disorder, unspecified Category: Medical Plan: Continue current medications (3) Essential hypertension: Code(s): I10 - Essential (primary) hypertension Category: Medical Plan: Continue propranolol Orders: Orders PT Evaluation and Treatment Today M25.562 - Pain in left knee MR knee LT wo con Today S83.8X2A - Sprain of other specified parts of left knee, initial encounter Medications: New meloxicam 15 mg PO DAILY 14 tabs 0RF Changed From omeprazole 20 mg PO DAILY 90 caps 3RF To omeprazole 20 mg PO DAILY PRN Discontinued ketorolac maximum total duration of 5 days from all oral, intranasal, or parenteral formulations Discontinued Reason: Doctor's Order 10 mg PO BID PRN 12 tabs 0RF pain ketorolac given IV toradol in department Discontinued Reason: Doctor's Order 10 mg PO TID 5 days PRN 15 tabs 0RF pain naproxen Discontinued Reason: Doctor's Order 500 mg PO BID 7 days 14 tabs 0RF tramadol Discontinued Reason: Doctor's Order 50 mg PO BID PRN 10 tabs 0RF pain baclofen Discontinued Reason: Doctor's Order 10 mg PO Q6H 90 tabs 1RF
--- OUTSIDE RECORDS SUMMARY | 2025-08-05 14:25 | XMS_ITS | Clinical Summary ---
Author Organization [facility] Address [address] [place] [address] Phone Care Team Providers Care Inventory Checker Name Role Phone Sherita Washburn MD Primary Care Provider [phone] Allergies Active Allergy Reactions Criticality Noted Date [...] file Medical Devices Not on file [place] [address] [facility]CO [facility] [place] [address] [place] [address] [place] [address] [place] [address] [place] [place] [address] ACO Care Teams Inventory Checker Relationship Specialty Start Date End Date Sherita Washburn MD [facility] [place] [address] PCP - General Internal Medicine 05/24/18 Additional Source Comments The information contained in this document represents components of the legal health record. It is not the complete legal health record.[facility]
== END 2025-08-05 13:01 | disposition home or self-care (01) ==
LOC: HO.HMCC 11:50
PROVIDERS: Visit Provider Internal Medicine
DX: S83.8X2A Sprain of other specified parts of left knee, initial encounter (principal); F41.9 Anxiety disorder, unspecified; I10 Essential (primary) hypertension

== ENCOUNTER → 2025-08-05 11:49 | Outpatient (BNVA) | payer OTHER, SELFPAY | PROVIDERS: Visit Provider Internal Medicine | DX: S83.8X2A Sprain of other specified parts of left knee, initial encounter (principal); I10 Essential (primary) hypertension; F41.9 Anxiety disorder, unspecified; X58.XXXA Exposure to other specified factors, initial encounter; Y93.9 Activity, unspecified; Y92.9 Unspecified place or not applicable; Y99.9 Unspecified external cause status | CPT/HCPCS: 96127; 99212 ==

== ENCOUNTER 2025-08-15 09:37 | Outpatient (REF) | payer OTHER, SELFPAY ==
--- NOTE | ~2025-08-15 | XR_ITS ---
CLINICAL HISTORY: M25.562 - Pain in left knee --- Additional Notes or Special Instructions: BS w sunrise AP standing view bilateral knees Cuthbert view left knee Comparison: CR/SR - XR KNEE LT 4V - 07/24/25 07:24 EDT Findings: No fractures or dislocations. Mild joint space loss and osteophytes at the level of the bilateral medial knee compartments. No radiopaque foreign body. IMPRESSION: Mild osteoarthritis of the bilateral medial knee compartments. This document has been electronically signed by: Fadia Mcdonald MD on 08/16/2025 15:03:00
--- OUTSIDE RECORDS SUMMARY | 2025-08-16 10:11 | XMS_ITS | Clinical Summary ---
Author Organization [facility] Address [address] [facility] [address] [place] [address] Phone Care Team Providers Care Communications Professional Name Role Phone Sherita Washburn MD Primary Care Provider [phone] Allergies Active Allergy Reactions Criticality Noted Date [...] file Medical Devices Not on [place] [address] [place] [address] ACO [facility] [place] [address] [place] [address] [place] [address] [place] [address] [place] [address] [place] [address] ACO Care Teams Communications Professional Relationship Specialty Start Date End Date Sherita Washburn MD [facility] [place] [address] PCP - General Internal Medicine 05/24/18 Additional Source Comments The information contained in this document represents components of the legal health record. It is not the complete legal health record.[facility]
== END 2025-08-15 09:38 | disposition home or self-care (01) ==
LOC: HO.HOSX 09:37
PROVIDERS: Visit Provider Physician Assistant
DX: M23.92 Unspecified internal derangement of left knee (principal)
CPT/HCPCS: 73560; 99212

== ENCOUNTER 2025-08-15 13:07 | Outpatient (AMB) | payer OTHER, SELFPAY ==
--- NOTE | 2025-08-15 13:22 | A.OFFVIS_ITS ---
Vital Signs 08/15/25 13:42 Height 5 ft 5 in Weight 281 lb BMI 46.8 Intake Visit Reasons: FC-Lt knee patella effusion Intake Note: Arlette is a 49 year old female who presents today for an ER follow up of left knee. Patient was seen initially seen at [facility] on 07/24/25, with complaints of knee pain after she quickly went down a few step. She denies fall, stating she felt a rip in her knee. She presented back to [facility] ER due to her pain and swelling. Also seen by urgent care and her PCP. Today patient reports excruciating jolting pain at the anterior and posterior aspect of knee. Finds no relief with Tylenol or meloxicam. She is requesting an MRI. Allergies cyclobenzaprine (From Flexeril) Allergy (Severe, Verified 08/15/25 13:42) Constipation Penicillins (PENICILLINS) Allergy (Severe, Verified 08/15/25 13:42) Anaphylaxis amoxicillin (AMOXICILLIN) Allergy (Intermediate, Verified 08/15/25 13:42) HIVES ciprofloxacin (From CIPRO) Allergy (Intermediate, Verified 08/15/25 13:42) HIVES citalopram Allergy (Intermediate, Verified 08/15/25 13:42) sweating, panic attack diclofenac (DICLOFENAC) Allergy (Intermediate, Verified 08/15/25 13:42) HIVES, ITCHING, FLUSHED Sulfa (Sulfonamide Antibiotics) (SULFA(SULFONAMIDE ANTIBIOTICS)) Allergy (Intermediate, Verified 08/15/25 13:42) HIVES trazodone Allergy (Mild, Verified 08/15/25 13:42) increase appetite paroxetine (Paxil) Adverse Reaction (Intermediate, Verified 08/15/25 13:42) stomach upset tizanidine Adverse Reaction (Intermediate, Verified 08/15/25 13:42) PANIC ATTACKS quetiapine (Seroquel) Adverse Reaction (Unknown, Verified 08/15/25 13:42) Increased sweating and weight gain Medication List - Last Reconciled 08/15/25 by Yajaira Small PA-C acetaminophen 1,000 mg (2 x 500 mg) PO Q6H PRN alprazolam 1 mg PO TID PRN buspirone 1 tab PO BID escitalopram oxalate 20 mg PO DAILY escitalopram oxalate 5 mg PO DAILY eszopiclone 3 mg PO BEDTIME PRN gabapentin 600 mg PO TID norethindrone (contraceptive) 0.35 mg PO DAILY omeprazole 20 mg PO DAILY PRN propranolol 60 mg (1.5 x 40 mg) PO BID HPI HPI FC-Lt knee patella effusion: Details: 49-year-old female presents to the office today for an injury she sustained to her left knee. Initially she states she fell down the stairs in Oct 2024 , she may have developed knee pain at that time; however, 6-7 weeks ago she was going down the stairs and when she took her last step, she felt something give in her patlella. She felt immediate pain and she was able to walk but states the pain was worsening with time. She states initially she was able to straight leg raise however now it has become more difficult. She was seen in urgent care and also the emergency department on 2 separate occasions. She was referred to our office for ortho eval. [facility] Medical History Acute respiratory disease Elevated cholesterol HTN (hypertension) Hand injury Annual physical exam Back pain GERD (gastroesophageal reflux disease) Anxiety Rotator cuff tear Complete tear of left rotator cuff Surgical History Hx of cholecystectomy S/P right rotator cuff repair S/P left rotator cuff repair Family History Mother No problems noted. Father Lung cancer Sister Mental health disorder Social History Housing: House Alcohol intake: former Patient Tobacco Use Status: Former Tobacco user Cigarettes Per Day: 3 e-Cigarette/Vaping Use: Never Used Second Hand Smoke Exposure: No service: No Current occupational status: unemployed Current occupation: Unemployed - Right Handed Cognitive needs: No Hearing needs: No Vision needs: No Review of Systems Const All systems reviewed & are unremarkable except as noted in HPI and below Physical Exam Vital Signs: BMI result Body Mass Index 46.8 Extrem Other: Left knee is normal to inspection. No joint effusion present. She does have tenderness over the superior pole of the patella with a slightly palpable defect. She is able to initiate quad activation however there is a proximally 15 degree extension lag. Calf supple and nontender neurovascularly intact. Results Reviewed Results Reviewed: X-rays of the left knee obtained in the office today and reviewed by me show no acute fractures or dislocations. Assessment & Plan Assessment & Plan (1) Internal derangement of left knee: Code(s): M23.92 - Unspecified internal derangement of left knee Category: Medical Plan: It is unclear of the source of her pain whether it be patella or quad tendon therefore a stat MRI of the left knee has been ordered to further assess. She was fit for a hinged knee brace for stability. I did send her a prescription for Celebrex to the pharmacy to help with her pain and inflammation and and I will discuss with her the results of her MRI once I have them back to discuss the next step in her treatment. Orders: Orders XR knee LT 2V Today M25.562 - Pain in left knee MR knee LT wo con Today M23.92 - Unspecified internal derangement of left knee Medications: New celecoxib (Celebrex) 200 mg PO BID 60 caps 3RF 30 days Coding Level of Care Code Est Pt Level 3 (36539) Complex EM visit Add On G2211 Diagnoses Internal derangement of left knee M23.92
[2025-08-15 13:42] VITALS: BMI 46.8
--- OUTSIDE RECORDS SUMMARY | 2025-08-15 15:09 | XMS_ITS | Clinical Summary ---
Author Organization [facility] Address [address] [place] [address] Phone Care Team Providers Care Quality Assurance Nurse Name Role Phone Sherita Washburn MD Primary Care Provider [phone] Allergies Active Allergy Reactions Criticality Noted Date [...] file Medical Devices Not on file [place] [address] ACO [facility] [place] [address] [place] [address] [place] [address] [place] [address] [place] [address] [place] [address] ACO Care Teams Quality Assurance Nurse Relationship Specialty Start Date End Date Sherita Washburn MD [facility] [place] [address] PCP - General Internal Medicine 05/24/18 Additional Source Comments The information contained in this document represents components of the legal health record. It is not the complete legal health record.[facility]
== END 2025-08-15 14:30 | disposition home or self-care (01) ==
LOC: HO.HOS 13:08
PROVIDERS: PCP Internal Medicine; Visit Provider Physician Assistant
DX: M23.92 Unspecified internal derangement of left knee (principal)
CPT/HCPCS: 99213

== ENCOUNTER → 2025-08-15 13:10 | Outpatient (BNV) | payer OTHER, SELFPAY | PROVIDERS: Visit Provider Radiology Diagnostic Radiology | DX: M25.562 Pain in left knee (principal) | CPT/HCPCS: 73560 ==

== ENCOUNTER → 2025-08-16 11:58 | Outpatient (BNV) | payer OTHER, SELFPAY | PROVIDERS: PCP Internal Medicine; Visit Provider Radiology Diagnostic Radiology | DX: S83.232A Complex tear of medial meniscus, current injury, left knee, initial encounter (principal); M25.462 Effusion, left knee | CPT/HCPCS: 73721 ==

== ENCOUNTER 2025-08-16 12:00 | Outpatient (REF) | payer OTHER, SELFPAY ==
--- NOTE | ~2025-08-16 | MR_ITS ---
EXAMINATION: MR KNEE WITHOUT CONTRAST, LEFT TECHNIQUE: Multiplanar multisequence MR imaging performed through the left knee without contrast. CLINICAL INFORMATION: Difficulty weightbearing, walking, while walking down stairs 6 weeks ago, felt the rip , feels like patella is loose , medial pain COMPARISON: 08/15/2025 x-ray FINDINGS: Menisci: Lateral Meniscus: Lateral meniscus is intact. Medial Meniscus: The body is mildly extruded from the joint line. There is oblique intermediate signal posterior horn medial meniscus extending to the surface on single image and possibly extending to the surface of the second image There is a suspected small meniscal flap displaced below the joint line posteromedially (coronal PD image ) ACL/PCL: ACL is intact. PCL is intact. Extensor mechanism: There is a mildly complex joint effusion. There is fatty prominence in the superior lateral suprapatellar pouch with a villiform surface measuring 3.2 x 0.8 x 2.3 cm (CC by AP by transverse). Synovial fluid tracks into recess in the deep superior fat pad of Hoffa. MCL/LCL: MCL is bowed outward by extruded meniscus. There is fluid signal along the surface of superficial MCL. Proximal fibers of superficial MCL are mildly thickened with increased signal. The deep superior MCL is attenuated near the femur consistent with near full-thickness tear versus tear. LCL complex is intact. Articular cartilage: Patellofemoral Compartment: Irregular partial thickness articular cartilage defect is present in the mid third patella involving median ridge extending into medial facet 9 mm and extending into the lateral facet 7 mm consistent with grade 2-3 chondromalacia. There is a focal 7 mm full-thickness articular cartilage defect in the inferomedial trochlea. There is adjacent reactive marrow signal change. Lateral Compartment: There is a focal 3 x7 mm full-thickness articular cartilage defect in the central weightbearing region of the lateral femoral condyle Inner free margin the posterior horn lateral meniscus. Tibial cartilage appears intact. Medial Compartment: Irregular deep partial and full-thickness articular cartilage defect is present across the central and posterior weightbearing region of the medial femoral condyle measuring at least 3 cm anterior posterior. There is mild thinning of the medial tibial plateau articular cartilage. Bones/Marrow: There is mild bone bruise involving the medial femoral condyle without visible fracture line. There is mild reactive marrow signal change or marrow edema along the medial and posterior medial aspect of the tibial plateau. There is anterior tibial translation measuring 9 mm. There are tricompartmental marginal osteophytes. Soft tissues: There is a complex leaking Jarrett's cyst. There is mild subcutaneous soft tissue edema. MR/MR knee LT wo con IMPRESSION: Moderate osteoarthritis. Complex joint effusion, likely with underlying synovitis. 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 Measured 2.2 x 0.8 x 2.3 cm. Suspected small meniscal flap displaced inferior to the joint line at the junction of posterior body and posterior horn of the medial meniscus. There is a grade 1 sprain of superficial MCL. There is grade 2, possibly grade 3 sprain of the deep meniscofemoral component of MCL with a partial tear/tear near the femoral attachment. There is moderate bone bruise involving medial femoral condyle and mild bone bruise or reactive marrow signal change along the medial and posterior medial tibial plateau. ACL appears intact. However, there is 9 mm anterior tibial translation which raises question of underlying laxity. There is a moderate-sized leaking Jarrett's cyst. Electronically signed by: Adal Phelps MD 08/16/2025 12:55 PM EDT
== END 2025-08-16 12:01 | disposition home or self-care (01) ==
LOC: HO.MRI 12:00
PROVIDERS: PCP Internal Medicine; Visit Provider Physician Assistant
DX: M23.92 Unspecified internal derangement of left knee (principal)
CPT/HCPCS: 73721

== ENCOUNTER 2025-10-16 09:05 | Outpatient (REF) | payer OTHER, SELFPAY ==
--- OUTSIDE RECORDS SUMMARY | 2025-10-17 11:09 | XMS_ITS | Clinical Summary ---
Author Organization [facility] Address [address] [address] [place] [address] Phone Care Team Providers Care Statistical Machine Mechanic Name Role Phone Sherita Washburn MD Primary Care Provider [phone] Allergies Active Allergy Reactions Criticality Noted Date [...] file Medical Devices Not on file Insurance [place] [address] ACO [facility] [place] [address] [place] [address] [place] [address] ACO Care Teams Statistical Machine Mechanic Relationship Specialty Start Date End Date Sherita Washburn MD [address] [place] [id number] PCP - General Internal Medicine 05/24/18 Additional Source Comments The information contained in this document represents components of the legal health record. It is not the complete legal health record.[facility]
== END 2025-10-16 09:06 | disposition home or self-care (01) ==
LOC: HO.HOSX 09:05
PROVIDERS: Visit Provider Physician Assistant
DX: Z13.89 Encounter for screening for other disorder (principal)